=== PATIENT | female | born 1965 | race Caucasian/White ===

== ENCOUNTER → 2017-02-23 | Outpatient (CLI) | payer OTHER ==
[~2017-02-23] MED LIST: AMOX500T PO; FERR1TAB23 PO; FERROUS SULFATE PO; HYDR-5688 PO; MTR500 PO; OPTIRAY 320 IV PRN; PRENTAB26 PO; Tylenol PO; [UNRECOGNIZED DRUG - OTHER] PO
--- NOTE | 2017-02-23 09:51 | DIAGNOSTIC IMAGING REPORT ---
ABDOMEN AND PELVIS CT WITH IV AND ORAL CONTRAST CT DOSE: HISTORY: Colon carcinoma colon carcinoma TECHNIQUE: Multiaxial CT images of the abdomen and pelvis were performed following the use of intravenous and oral contrast. COMPARISON STUDY: 10/21/2016 FINDINGS: 3 mm peripheral nodule right lung base unchanged in the prior study. No new or interval basilar changes. Liver demonstrates a decrease in size of a nodule of the left hepatic lobe now currently measuring no more than 3 mm best seen transaxial 26 image. Lesion in the exophytic bases of the inferior right hepatic lobe is slightly diminished in size with a current maximum dimension of 3 cm diminished from the prior study of 4.5 cm. No new or interval hepatic lesions are identified. Partially peripherally calcified gallstone the region of the gallbladder neck versus partial porcelain gallbladder is unchanged. A 3 mm cystic nodule juncture of the pancreas body and tail is unchanged. There are no new or interval pancreatic findings. Spleen is uniform. Kidneys enhance uniformly. No evidence for hydronephrosis. A prior colostomy widely patent. Bowel pattern is nonobstructive. Bladder is midline. The appearance of pelvis is unremarkable. Bladder is midline. There is no significant abdominal pelvic or inguinal adenopathy. IMPRESSION: 1. Improved exam. 2. Metastatic deposits within the liver are moderately diminished in volume. 3. No evidence for new or interval process. 3. Stable postoperative changes. 4. Stable 3 mm nodular density right base 5. No CT evidence for bony metastatic change Electronically signed by: Thanh Hollis M.D. 02/23/2017 9:49 AM Dictated Date/Time: 02/23/2017 9:41 AM
--- NOTE | 2017-02-23 10:01 | DIAGNOSTIC IMAGING REPORT ---
CT OF THE CHEST WITH IV CONTRAST CLINICAL HISTORY: Metastatic colon cancer. COMPARISON STUDY: Chest CT October 21, 2016. TECHNIQUE: Following IV administration of 92 mL of Optiray-320, helical axial images of the chest were obtained. Images were viewed in the axial, sagittal and coronal planes. IV contrast was administered without complication. CT DOSE: 546.16 mGy.cm FINDINGS: Numerous subcentimeter pulmonary nodules are unchanged since exam of October 21, 2016. An index irregular left upper lobe nodule measures 8 mm and is shown on image 74 of 316. No new nodules are present. Central airways are patent. No pneumothorax or pleural effusion is present. A right-sided Reawbr-n-Lnya is in place. The size of the heart is normal. There is no pericardial effusion. There are no suspicious osseous lesions. The abdomen and pelvis will be reported separately. IMPRESSION: 1. No change in numerous pulmonary nodules since exam October 21, 2016. No new nodules identified. 2. No thoracic lymphadenopathy. Electronically signed by: David Cotton M.D. 02/23/2017 10:00 AM Dictated Date/Time: 02/23/2017 9:40 AM
== END | disposition home or self-care (01) ==
LOC: C.CTS 08:33
PROVIDERS: ATTEND Nurse Practitioner Family
DX: C18.9 Malignant neoplasm of colon, unspecified (principal); C78.00 Secondary malignant neoplasm of unspecified lung

== ENCOUNTER → 2017-06-29 | Outpatient (CLI) | payer OTHER ==
[~2017-06-29] MED LIST changes: -AMOX500T PO; -FERR1TAB23 PO; -HYDR-5688 PO; -PRENTAB26 PO
--- NOTE | 2017-06-29 11:51 | DIAGNOSTIC IMAGING REPORT ---
(CHEST) THORAX WITH HISTORY: 51 years-old Female history of metastatic colon cancer with multiple pulmonary nodules. Follow-up exam. COMPARISON: CT chest 02/23/2017 TECHNIQUE: Multiple axial CT images of the chest were obtained following the intravenous administration of 94 mL Optiray 320. A dose lowering technique was used consistent with the principals of EMILEE. FINDINGS: A nonspecific low attenuating 8 x 6 mm posterior left thyroid nodule is present. No pathologic adenopathy of the chest is identified. Heart is normal in size. Thoracic aorta appears normal. The opacified pulmonary arterial tree is also unremarkable. Right pectoral Uiuggf-t-Nzvn catheter is noted with distal tip is proximal to the superior cavoatrial junction. Mild pleural-parenchymal scarring of the lung apices is noted without pneumothorax or pleural effusion. Multiple scattered noncalcified pulmonary nodules are again seen to the lungs bilaterally. Index nodule of the lateral basal segment left lower lobe measures 6 x 6 mm on image 238, previously 5 x 5 mm. Index nodule is lobulated and spiculated margins within the apical posterior segment left upper lobe measures 10 x 6 mm on image 77, previously 8 x 6 mm. Pleural-based spiculated nodule on image 72 of the posterior segment right upper lobe measuring 7 mm previously measured 5 mm. Central airways are patent. There is diffuse fatty infiltration of the liver. Oral contrast is seen within the gastric lumen. No suspicious lytic or blastic bony lesions. Mass of the right hepatic lobe is seen, 2.2 x 1.4 cm. Better evaluated on CT abdomen and pelvis of same day. IMPRESSION: 1. Multiple multilobar distribution bilateral noncalcified nodules, many of which demonstrate spiculated and lobulated margins are mildly increased in size from comparison chest CT dated 02/23/2017 compatible with progression of metastatic disease. 2. Hepatic metastasis partially imaged, better evaluated on the abdomen and pelvis CT of same day. 3. No pathologic adenopathy or skeletal metastases identified. The above report was generated using voice recognition software. It may contain grammatical, syntax or spelling errors. Electronically signed by: Amador Hickman M.D. 06/29/2017 11:49 AM Dictated Date/Time: 06/29/2017 11:41 AM
--- NOTE | 2017-06-29 12:30 | DIAGNOSTIC IMAGING REPORT ---
CT OF THE ABDOMEN AND PELVIS WITH CONTRAST CLINICAL HISTORY: Metastatic colon cancer. COMPARISON STUDY: CT of the abdomen and pelvis February 23, 2017. TECHNIQUE: Following IV administration of 94 mL of Optiray-320, axial images of the abdomen and pelvis were obtained from the lung bases to the proximal femurs. Images were reviewed in the axial, sagittal, and coronal planes. IV contrast was administered without complication. A dose lowering technique was utilized adhering to the principles of ALARA. Oral contrast was administered. CT DOSE: 562.70 mGy.cm FINDINGS: The chest will be reported separately. A 4 mm left lower lobe subpleural nodule shown on image 59 of 481 has slightly increased in size since prior exam of February 23, 2017. A hypodense inferior right hepatic lobe lesion is similar to exam of February 23, 2017, measuring 4.1 x 2 cm. No new hepatic lesions are present. A gallstone is noted within the gallbladder. There are postsurgical findings consistent with a transverse colostomy. Fatty infiltration of the liver is noted. The spleen, adrenal glands, kidneys and pancreas are normal. No enlarged abdominal or pelvic lymph nodes are present. The appendix is normal. There is no free fluid. Prominent periuterine vessels are unchanged. No suspicious osseous lesions are identified. IMPRESSION: 1. Slight increase in size of a 4 mm left lower lobe pulmonary nodule since prior CT of February 23, 2017. The pulmonary nodules are better assessed on chest CT. Please see that report for further description. 2. No significant change in the right hepatic lobe lesion since prior exam. No evidence of progressive metastatic disease within the abdomen or pelvis. 3. No bowel obstruction. 4. Cholelithiasis. 5. Fatty infiltration of the liver. Electronically signed by: David Cotton M.D. 06/29/2017 12:29 PM Dictated Date/Time: 06/29/2017 11:39 AM
== END | disposition home or self-care (01) ==
LOC: C.CTS 10:41
PROVIDERS: ATTEND Nurse Practitioner Family
DX: C18.9 Malignant neoplasm of colon, unspecified (principal); R91.8 Other nonspecific abnormal finding of lung field; K80.20 Calculus of gallbladder without cholecystitis without obstruction; K76.0 Fatty (change of) liver, not elsewhere classified; C78.7 Secondary malignant neoplasm of liver and intrahepatic bile duct

== ENCOUNTER → 2017-09-12 | Outpatient (CLI) | payer OTHER ==
[~2017-09-12] MED LIST changes: +AMOX500T PO; +FERR1TAB23 PO; +HYDR-5688 PO; -OPTIRAY 320 IV PRN; +PRENTAB26 PO
== END | disposition home or self-care (01) ==
LOC: C.CPL 15:23
PROVIDERS: ATTEND Surgery
DX: C79.9 Secondary malignant neoplasm of unspecified site (principal)

== ENCOUNTER → 2017-09-15 | Day surgery (SDC) | payer OTHER ==
[2017-09-14 08:04] VITALS: Ht 162.6 cm; Wt 65.5 kg
[~2017-09-15] VITALS: Ht 162.6 cm; Wt 65.5 kg
[~2017-09-15] MED LIST changes: +ATROPINE SULFATE 0.1 MG/ML 5ML SYR IV PRN; +CEFAZOLIN 2000MG IV PUSH 10 ML IV SCH; +DEXAMETHASONE SOD INJ 4 MG/ML VIAL ONE; +EpHEDrine SULFATE INJ 50 MG/ML AMP IV PRN; +FENTANYL CITRATE INJ 50 MCG/1 ML 2 ML VIAL IV PRN; +FENTANYL CITRATE INJ 50 MCG/1 ML 2 ML VIAL ONE; -FERROUS SULFATE PO; +HYDROCODONE/ACETAMOPHEN 5/325MG TAB PO PRN; +HYDROmorphone INJ 1 MG/ML SYR IV PRN; +LACTATED RINGER'S 1000ML 1,000 ML IV SCH; +LIDOCAINE HCL 1% 20 ML VIAL ONE; +LIDOCAINE HCL 2% 2 ML VIAL (20MG/ML) ONE; +MIDAZOLAM HCL 1 MG/ML 2ML VIAL ONE; -MTR500 PO; +ONDANSETRON INJ 2 MG/ML 2 ML VIAL IV PRN; +ONDANSETRON INJ 2 MG/ML 2 ML VIAL ONE; +PROMETHAZINE HCL INJ 12.5 MG in SODIUM CHLORIDE 0.9% 50ML 50 ML IV PRN; +PROPOFOL IV EMULSION 10 MG/ML 20 ML VIAL IV ONE; +SODIUM CHLORIDE 0.9% 1000ML 1,000 ML IV SCH; -Tylenol PO; -[UNRECOGNIZED DRUG - OTHER] PO
--- NOTE | 2017-09-15 10:49 | History & Physical Bridge - SC ---
H&P Re-Evaluation Bridge Note: I have examined the patient, reviewed the History & Physical and in the interval since the performance of the History & Physical I have noted the following changes of clinical significance: No changes noted
--- NOTE | 2017-09-15 11:27 | [facility] Operative Report ---
Operative Report Operative Date Sep 15, 2017. Pre-Operative Diagnosis Infected A-port; metastatic colon cancer Post-Operative Diagnosis Same as pre-op Procedure(s) Performed Removal of A-port Surgeon Dr. Lowery Plumber Supervisor Surgeon(s) None Estimated Blood Loss 5ML Findings port- cultured Specimens Culture #1-port capsule Culture #2-A-port A.Explanted A-port (permanent) Anesthesia local/ sedation Complication(s) None Disposition Recovery Room / PACU I attest to the content of the Intraoperative Record and any orders documented therein. Any exceptions are noted below.
[2017-09-15 11:30] VITALS: TEMP 36.4
--- NOTE | 2017-09-15 11:30 | Discharge Instructions-SurgCtr ---
Discharge Instructions Date of Service Sep 15, 2017. Visit Reason for Visit: Infected A-Port Discharge Discharge Diagnosis / Problem: port in place- infected Discharge Goals Goal(s): Decrease discomfort, Improve function, Improve disease control Activity Recommendations Activity Limitations: as noted below Lifting Limitations: no more than 25 pounds Exercise/Sports Limitations: until after follow-up appointment May Resume Sexual Activity: when tolerated Shower/Bathe: tomorrow Driving or Machine Use: resume 1 day after discharge SPECIAL CARE INSTRUCTIONS: * Cover incisions and change daily for comfort/drainage. * May use ibuprofen for pain as tolerated. * Expect some swelling and bruising. Call your doctor if: * Temperature above 101 degrees * Pain not relieved by pain medicine ordered * There is increased drainage or redness from any incision * You have any unanswered questions or concerns [phone]. FOLLOW UP VISIT: If not already scheduled, please call the office for a follow-up visit. for 2 weeks- [facility] OFFICE PHONE NUMBER: Dr. Lowery Office Anesthesia . Post Anesthesia Instructions: If you have had General Anesthesia or IV Sedation: * Do not drive today. * Resume driving when surgeon permits. * Do not make important decisions or sign legal documents today. * Call surgeon for: 1. Temperature elevations greater than 101 degrees F. 2. Uncontrollable pain. 3. Excessive bleeding. 4. Persistent nausea and vomiting. 5. Medication intolerance (nausea, vomiting or rash). * For nausea and vomiting use only clear liquids such as: tea, soda, bouillon until nausea subsides, then gradually increase diet as tolerated. * If you have any concerns or questions, call your surgeon's office. If physician is unavailable and it is an emergency, call 911 or go to the nearest emergency room. . Diet Recommendations Home Diet: resume previous diet Procedures Procedures Performed: Removal of A-port Pending Studies Studies pending at discharge: no Medical Emergencies . Who to Call and When: Medical Emergencies: If at any time you feel your situation is an emergency, please call 911 immediately. . Non-Emergent Contact Non-Emergency issues call your: Primary Care Provider, Surgeon . . "Provider Documentation" section prepared by Paresh Lowery. .
--- NOTE | 2017-09-15 11:41 | OPERATIVE REPORT ---
DATE OF OPERATION: 09/15/2017 NAME OF OPERATION: Port removal with culture. STAFF SURGEON: Dr. Paresh Lowery. ANESTHESIA: 1% plain lidocaine with sedation. DESCRIPTION OF PROCEDURE: The patient was brought into the operating room and placed on the operating table in the supine position. Her right chest was prepped and draped in the usual fashion over a port site. Using 1% plain lidocaine, the skin and subcutaneous tissue were anesthetized, incision made through the previous scar, carrying dissection down identifying the catheter, dissecting the port, which was a double port from the capsule and then removing the catheter and port. Tunnel was oversewn using 2-0 chromic catgut suture. The port capsule was cultured. The port tip was cultured. Deep tissue was reapproximated using 2-0 chromic catgut suture and the skin reapproximated using 4-0 nylon suture. Dressing applied and the patient transferred to recovery room in stable condition. I attest to the content of the Intraoperative Record and any orders documented therein. Any exception s are noted below.
[2017-09-15 12:03] VITALS: BP 119/76; PULSE 64; O2SAT 100
--- NOTE | 2017-09-15 12:20 | Anesthesia Progress Nt - [facility] ---
Anesthesia Post Op Note Date & Time Sep 15, 2017 at 12:20 Vital Signs Pain Intensity: 0 Vital Signs Past 12 Hours Date Time Temp Pulse Resp B/P (MAP) Pulse Ox O2 Delivery O2 Flow Rate FiO2 09/15/17 12:03 64 16 119/76 (90) 100 Room Air 09/15/17 11:30 36.4 75 16 101/68 (79) 100 Room Air 09/15/17 09:03 36.6 72 16 118/80 (93) 95 Room Air Notes Mental Status: alert / awake / arousable, participated in evaluation Pt Amnestic to Procedure: Yes Nausea / Vomiting: adequately controlled Pain: adequately controlled Airway Patency, RR, SpO2: stable & adequate BP & HR: stable & adequate Hydration State: stable & adequate Anesthetic Complications: no major complications apparent
== END | disposition home or self-care (01) ==
LOC: X.SURG 08:44
PROVIDERS: ATTEND Surgery
DX: Z45.2 Encounter for adjustment and management of vascular access device (principal); C18.9 Malignant neoplasm of colon, unspecified; C79.9 Secondary malignant neoplasm of unspecified site; D64.9 Anemia, unspecified; Z87.891 Personal history of nicotine dependence

== ENCOUNTER → 2018-01-26 | Outpatient (CLI) | payer OTHER ==
[~2018-01-26] MED LIST changes: -ATROPINE SULFATE 0.1 MG/ML 5ML SYR IV PRN; -CEFAZOLIN 2000MG IV PUSH 10 ML IV SCH; -DEXAMETHASONE SOD INJ 4 MG/ML VIAL ONE; -EpHEDrine SULFATE INJ 50 MG/ML AMP IV PRN; -FENTANYL CITRATE INJ 50 MCG/1 ML 2 ML VIAL IV PRN; -FENTANYL CITRATE INJ 50 MCG/1 ML 2 ML VIAL ONE; -HYDROCODONE/ACETAMOPHEN 5/325MG TAB PO PRN; -HYDROmorphone INJ 1 MG/ML SYR IV PRN; -LACTATED RINGER'S 1000ML 1,000 ML IV SCH; -LIDOCAINE HCL 1% 20 ML VIAL ONE; -LIDOCAINE HCL 2% 2 ML VIAL (20MG/ML) ONE; -MIDAZOLAM HCL 1 MG/ML 2ML VIAL ONE; -ONDANSETRON INJ 2 MG/ML 2 ML VIAL IV PRN; -ONDANSETRON INJ 2 MG/ML 2 ML VIAL ONE; +OPTIRAY 320 IV PRN; -PROMETHAZINE HCL INJ 12.5 MG in SODIUM CHLORIDE 0.9% 50ML 50 ML IV PRN; -PROPOFOL IV EMULSION 10 MG/ML 20 ML VIAL IV ONE; -SODIUM CHLORIDE 0.9% 1000ML 1,000 ML IV SCH
--- NOTE | 2018-01-26 16:04 | DIAGNOSTIC IMAGING REPORT ---
CT ABD/PELVIS IV AND ORAL CONT CLINICAL HISTORY: COLON CA COMPARISON STUDY: 09/26/2017 TECHNIQUE: Following the IV administration of 94 mL of Optiray-320, CT scan of the abdomen and pelvis was performed from the lung bases to the proximal femurs. Images are reviewed in the axial, sagittal, and coronal planes. IV contrast was administered without complication. A dose lowering technique was utilized adhering to the principles of ALARA. CT DOSE: 535.55 mGy.cm FINDINGS: Lower chest: There are multiple bilateral lower lobe pulmonary nodules. The largest on the left measures 8 mm. The largest on the right measures 5 mm. Liver: There is hepatic steatosis. There are multiple right lobe masses. The largest measures 4.8 cm in diameter. There is adjacent capsular retraction. This mass is minimally smaller than on the preceding study. There are calcifications within the right posterior inferior hepatic mass. Gallbladder: Cholelithiasis Spleen: Normal in size and attenuation. Pancreas: Unremarkable. Adrenal glands: Unremarkable. Kidneys: There is symmetric renal cortical enhancement. The kidneys are normal in size without hydronephrosis. Bowel: There are no transition zones indicate bowel obstruction. There is a left lower quadrant double barrel colostomy. Peritoneum: There is no intraperitoneal free air or abdominal ascites. Vasculature: The abdominal aorta is normal in course and caliber. Adenopathy: None. Pelvic viscera: The bladder, and pelvic viscera are unremarkable. Skeletal structures: No destructive osseous lesions are seen. IMPRESSION: 1. Multiple lower lobe pulmonary nodules, indicative of metastatic disease 2. Slight interval decrease in the size of the hepatic masses, consistent with a treatment response 3. No evidence of pathologic adenopathy. Electronically signed by: Chavo Langford M.D. 01/26/2018 4:03 PM Dictated Date/Time: 01/26/2018 3:55 PM
--- NOTE | 2018-01-26 16:10 | DIAGNOSTIC IMAGING REPORT ---
CHEST CT WITH CONTRAST HISTORY: Follow-up study in a patient with history of colon cancer. History of metastatic disease. COLON CA TECHNIQUE: Multiaxial CT images of the chest were performed following the intravenous administration of contrast. A dose lowering technique was utilized adhering to the principles of ALARA. COMPARISON: CT chest 09/26/2017, CT abdomen and pelvis of same day. FINDINGS: 8 mm low attenuating lesion of the left thyroid lobe redemonstrated. The left thyroid lobe is asymmetrically larger than the right. There is no pathologic adenopathy of the chest identified. The heart is normal in size without pericardial effusion. The thoracic aorta is normal in both course and caliber without aneurysm or dissection. The imaged great vessels appear to be patent. The opacified pulmonary arterial tree is unremarkable and demonstrates no focal filling defects. There is no pneumothorax or pleural effusion identified. Multiple bilateral solid noncalcified pulmonary nodules are redemonstrated. Unchanged 12 mm nodule of the left upper lobe, image 66 series 4. Additional bilateral nodules appear stable in size and appearance no progressively enlarged or new pulmonary nodules identified. 9 mm nodules left lower lobe, image 224 series 4 appears unchanged. The central airways appear to be patent. The previously described ill-defined low attenuating hepatic metastasis redemonstrated measuring up to 3.9 cm. No acute abnormality of the imaged upper abdomen. Soft tissues are unremarkable. No suspicious lytic or blastic bony lesions identified. IMPRESSION: 1. Multilobar distribution of solid bilateral pulmonary nodules are again seen measuring up to 1.2 cm in size which appear unchanged from most recent comparison study 09/26/2017 suggesting stable pulmonary metastasis. 2. No mediastinal or hilar adenopathy. 3. Hepatic metastasis redemonstrated. Please see separately dictated CT abdomen and pelvis for further details. 4. No bony metastasis identified. Electronically signed by: Amador Hickman M.D. 01/26/2018 4:09 PM Dictated Date/Time: 01/26/2018 3:59 PM
== END | disposition home or self-care (01) ==
LOC: C.CTS 13:22
PROVIDERS: ATTEND Internal Medicine Hematology & Oncology
DX: C18.7 Malignant neoplasm of sigmoid colon (principal); R91.8 Other nonspecific abnormal finding of lung field; R16.0 Hepatomegaly, not elsewhere classified

== ENCOUNTER → 2018-07-12 | Outpatient (CLI) | payer OTHER ==
[~2018-07-12] MED LIST changes: -HYDR-5688 PO
--- NOTE | 2018-07-12 12:48 | DIAGNOSTIC IMAGING REPORT ---
CT SCAN OF THE CHEST, ABDOMEN, AND PELVIS WITH IV CONTRAST CLINICAL HISTORY: Colon cancer follow-up. COMPARISON STUDY: CT scan of the chest, abdomen, and pelvis dated 04/18/2018. Chest CT dated 08/14/2015. TECHNIQUE: Following the IV administration of 116 of Optiray 320, CT scan of the chest, abdomen, and pelvis was performed from the thoracic inlet to the proximal femora. Images are reviewed in the axial, sagittal, and coronal planes. IV contrast was administered without complication. A dose lowering technique was utilized adhering to the principles of ALARA. CT DOSE: 482.30 mGy.cm FINDINGS: CHEST: Thyroid: Imaged portions of the thyroid gland are normal in size and heterogeneous in attenuation. Thyroid nodules measure up to 9 mm. Thoracic aorta: The thoracic aorta is normal in caliber and demonstrates standard 3-vessel arch anatomy. No dissection is seen. Pulmonary vasculature: The pulmonary trunk is normal in caliber. There are no filling defects identified in the central pulmonary vessels to indicate pulmonary embolus. Note that this examination was not protocoled for evaluation of the pulmonary arteries. Heart: The heart is normal in size and configuration, and without pericardial effusion. Lungs and pleural spaces: Findings of diffuse/multifocal pulmonary metastatic disease have not appreciably changed from 04/18/2018. There are greater than 30 metastatic foci identified. The largest lesions in the left upper lobe seen on image #101 measuring 11 mm. There is no airspace consolidation or pleural effusion. The trachea and central airways are clear. Mediastinum: There is no mediastinal lymphadenopathy. Manuela: Clear. Axillae: There is no axillary lymphadenopathy. Bony thorax: The skeletal structures are osteopenic. No lytic or blastic lesions are clearly identified. ABDOMEN AND PELVIS: Liver: The contrast-enhanced liver is normal in size. The liver demonstrates diffusely diminished attenuation consistent with hepatic steatosis. Right lobe hepatic metastases have not significantly changed from 04/18/2018. This now measures approximately 5 x 4 cm in dimension. There is associated scalloping of the overlying hepatic capsule. No new hepatic lesion is seen. There is no intrahepatic or ductal dilatation. The hepatic veins and portal veins are patent. Gallbladder: Calcified gallstones are suspected. Spleen: Normal in size and attenuation. Pancreas: Unremarkable. Adrenal glands: Unremarkable. Kidneys: The contrast enhanced kidneys are normal in size and without hydronephrosis. The kidneys enhance symmetrically. Abdominal vasculature: The abdominal aorta is normal in course and caliber. Bowel: There are postoperative changes from a double barrel colostomy at the level of the distal transverse colon in the left mid abdomen. No bowel obstruction is identified. Prominent pericolonic lymph nodes/soft tissue thickening adjacent to the sigmoid colon on image were 299 measure up to 9 mm in short axis. The appendix is well-visualized and normal. Peritoneum: There is no intraperitoneal free air or abdominal ascites. Lymphadenopathy: None. Pelvic viscera: The bladder, uterus, and adnexa are normal as visualized. Skeletal structures: The skeletal structures are osteopenic. No lytic or blastic lesions are clearly seen. IMPRESSION: 1. There has been no significant change from the 04/18/2018 examinations. 2. Multifocal pulmonary metastatic disease and hepatic metastases have not appreciably changed from previous. 3. Soft tissue thickening/nodularity versus pericolonic lymph nodes adjacent to the sigmoid colon are unchanged. 4. There is no airspace consolidation or pleural effusion. 5. Hepatic steatosis. 6. Suspect cholelithiasis. 7. Additional findings as above. Electronically signed by: Yadiel Isbell M.D. 07/12/2018 12:47 PM Dictated Date/Time: 07/12/2018 12:29 PM
== END | disposition home or self-care (01) ==
LOC: C.CTS 11:35
PROVIDERS: ATTEND Nurse Practitioner Family
DX: C18.7 Malignant neoplasm of sigmoid colon (principal); C78.00 Secondary malignant neoplasm of unspecified lung; C78.7 Secondary malignant neoplasm of liver and intrahepatic bile duct; M79.9 Soft tissue disorder, unspecified; K76.0 Fatty (change of) liver, not elsewhere classified

== ENCOUNTER 2019-06-02 07:39 | Inpatient (IN) ==
[2019-06-02] MEDS ORDERED: ACETAMINOPHEN 325 MG TAB PO PRN (10:07)
[2019-06-02] MEDS ORDERED: ONDANSETRON INJ 2 MG/ML 2 ML VIAL IV PRN (10:07)
[2019-06-02] MEDS ORDERED: HEPARIN 100 UNIT/ML 5ML FLUSH FLUSH PRN (10:30)
[2019-06-02] MEDS: SODIUM CHLORIDE 0.9% 1000ML 1,000 ML IV SCH ×3 (10:37→22:38)
[2019-06-02] MEDS ORDERED: GLUCOSE 40% GEL 15 GM TUBE PO PRN (10:45)
[2019-06-02] MEDS ORDERED: DEXTROSE 50% 50 ML SYRINGE IV PRN (10:45)
[2019-06-02] MEDS ORDERED: GLUCOSE 10 TABS/TUBE PO PRN (10:45)
[2019-06-02] MEDS ORDERED: GLUCAGON FOR INJ 1 MG VIAL IM PRN (10:45)
[2019-06-02] MEDS ORDERED: CARBOHYDRATES FOR HYPOGLYCEMIA PO PRN (10:45)
[2019-06-02 11:02] LABS: Hematocrit (blood only) 26.4 % (37-47); Hemoglobin 7.7 g/dL (12.0-16.0); Mean Corpuscular Hgb Conc 29.2 g/dL (32-36); Mean Corpuscular Volume 87.1 fL (80-100); Mean Platelet Volume 10.5 fL (7.4-10.4); Nucleated RBC # (auto) 0.18 K/uL (0-0); Nucleated RBC % (auto) 0.8 %; Platelet Count 180 K/uL (130-400); RDW Coefficient of Variation 22.8 % (11.5-14.5); RDW Standard Deviation 71.9 fL (36.4-46.3); Red Blood Count 3.03 M/uL (4.2-5.4); White Blood Count 21.68 K/uL (4.8-10.8)
[2019-06-02 11:12] LABS: INR 1.4 (0.9-1.1); Prothrombin Time 14.1 Seconds (9.0-12.0)
[2019-06-02 11:18] LABS: Albumin Level 1.5 gm/dl (3.4-5.0); BUN Creatinine Ratio 15.9 (10-20); Calcium 9.1 mg/dl (8.5-10.1); Creatinine Clr Calc Pharmacy 29.7 ml/min; Est GFR (African American) 36.8; Est GFR (Non-African American) 31.8; Potassium 3.8 mmol/L (3.5-5.1)
[2019-06-02] MEDS ORDERED: PIPERACILL/TAZOBAC CONSULT ACTIVE PRN (11:30)
[2019-06-02 11:33] LABS: Albumin Globulin Ratio 0.4 (0.9-2); Bilirubin,Total 4.1 mg/dl (0.2-1); Globulin 4.2 gm/dl (2.5-4.0); Total Protein 5.7 gm/dl (6.4-8.2)
[2019-06-02] MEDS ORDERED: PIPERACILLIN/TAZOBACTAM 3.375 GM in DEXTROSE 5% 100 ML IV ONE (11:45)
--- NOTE | 2019-06-02 13:27 | History & Physical Report ---
Date of Service June 02, 2019 Assessment & Plan (1) Acute pancreatitis: pain for a week, getting worse WBC 21k, AST 536, glucose normal lipase was 6000 at [facility] and CT showed evidence of pancreatitis concerns for gall stone pancreatitis due to elevated LFT will get GB US today may need MRCP will consult [facility] for recommendations keep NPO, allow ice chips NSS at 200cc/hr pain control with Dilaudid IV repeat CBC and CMP and lipase in the morning Zosyn to cover for possible cholangitis/cholecystitis, not for pancreatitis (2) Elevated LFTs: bili is 4, ALK phos nearly 2000 and AST 536 certainly bone mets likely contributing to higher elevation in Alk phos may consider cholangitis/cholecystitis as possibility given RUQ pain and leukocytosis check GB US today start on Zosyn today (3) ASHLEY (acute kidney injury): possible ASHLEY given Cr of 1.8 at [facility] unsure of baseline and Cr here cannot be run will give aggressive fluids with NSS at 200cc/hr (4) Colon cancer metastasized to brain: was on Decadron, continue IV (5) Colon cancer metastasized to bone: new finding for pain, it is in spine pain control consult oncology, may need radiation if pain is not controlled (6) Colon cancer metastasized to lung: consult oncology (7) DM type 2 (diabetes mellitus, type 2): Novolog SS (8) UTI (urinary tract infection): possible UTI bacteria in UA, told by patient that often she only has bacteria and no WBC with UTI will be on Zosyn, follow up urine culture from [facility] History of Present Illness Chief Complaint: My belly hurts Primary Care Provider: Thanh Charles 53 yo female with history of diffusely metastatic colon cancer. Discovered in 2014 with weight loss, weakness and heme positive stools. Found to have nearly obstructing mass in sigmoid. Had a subtotal colectomy and end colostomy. Has been through several rounds of chemotherapy, initially showed good response but then mets to lungs, liver, [employer] COORDINATOR and now bone. Most recently started on 5FU regimen, last treatment was 3 weeks ago and planned for another treatment in two days. Follows with Dr. Olguin. She had been tolerating chemo rather well despite her poor prognosis and her performance status had remained a 1, living independently and taking care of herself. She presents today from [facility] with acute pancreatitis. She says that she has had abdominal pain for over a week, getting progressively worse. She has no appetite and has been experiencing nausea but no vomiting. Her ostomy has had decreased output but her intake has been very poor. Yesterday she had a Boost for breakfast, nothing else all day. No fever or chills. The abdominal pain radiates to her back. Never had pain like this before, reports that she never had pain with her liver mets. At [facility] she had a significant leukocytosis of 22k, lipase elevated at 6000. Bilirubine was 4 and alk phos was in the . AST was elevated as well. CT of the abdomen/pelvis showed acute pancreatitis. It also showed the pulmonary and liver mets. Some thickening of her colon wall seen suggesting local spread of disease. Of note, there was some blastic lesions in spine suggestive of spine mets which is a new finding. She was started on IV fluids, made NPO, given Demerol for pain and transferred to [facility]. Allergies Allergy/AdvReac Type Severity Reaction Status Date / Time peanut Allergy Intermediate Rash Verified 03/25/19 05:42 around the mouth aloe Allergy Mild RASH Verified 03/25/19 05:42 No Known Drug Allergies Allergy . Verified 03/25/19 05:42 cat dander AdvReac Mild SNEEZING, Verified 03/25/19 05:42 WATERY EYES Home Medications Home Medications Medication Instructions Recorded Confirmed Type 1 tab PO DAILY 01/24/19 03/25/19 History ferrous sulfate 325 mg PO DAILY 01/24/19 03/25/19 History dexamethasone 2 mg tablet 2 mg PO DAILY tab 04/05/19 04/05/19 History empagliflozin 10 mg tablet 10 mg PO DAILY 04/05/19 04/05/19 History Past Med/Surg History Social History Preferred Language: Stateless Communication Ability: Effective Visual Impairment: Limited Hearing Ability: Normal Beliefs That Will Affect Care: Mandaen Mandaen Beliefs: PENTECOSTAL marital status: Current Living Situation: Spouse current occupational status: disabled current occupation: Worked for [employer] Other Information That Helps Us Care for You: No Feels Safe at Home: Yes Safety Concerns: Feels Safe At This Time Smoking Status: Former smoker Tobacco Type: cigarettes Second Hand Exposure: No Hx Alcohol Use: No Hx Substance Use: No caffeine: Yes (Iced tea daily ) during the past year weight has: remained stable Review of Systems Review of Systems: All systems reviewed & are unremarkable except as noted in HPI & below Constitutional: + body aches, + fatigue, + weakness, + anorexia and + weight loss; no fever, no chills and no sweats Eyes: + problem reported (yellow color) Respiratory: no cough, no dyspnea and no wheezing Cardiovascular: no chest pain, no palpitations, no syncope and no edema Gastrointestinal: + abdominal pain and + nausea; no vomiting, no constipation, no diarrhea/loose stools and no blood in stools Genitourinary: no dysuria Musculoskeletal: + back pain, + joint pain and + body aches Integumentary: no rash Neurologic: + generalized weakness; no falls, no tremor(s), no syncope, no headache(s) and no confusion Psychiatric: no behavioral changes Physical Exam Constitutional: well developed, + ill appearing and + thin; not in distress Eyes: + scleral abnormality (icterus), PERRL and EOM intact bilaterally ENMT: external ear and nose normal, oropharynx normal (dry mucous membranes) Neck: trachea midline, no thyromegaly Respiratory: normal respiratory effort, lungs clear to auscultation Cardiovascular: Rate/Rhythm: regular rhythm and + tachycardic Heart Sounds: normal S1 and normal S2; no murmur Vessels: no JVD Extremities: + abnormal capillary refill and no edema Gastrointestinal (Abdomen): Inspection/Auscultation: + abdomen distended and + hypoactive bowel sounds; + abdomen abnormal to inspection (colostomy in place) Percussion/Palpation: + abdomen tender and abdomen soft; no guarding, abdomen not rigid and no hernia Musculoskeletal: Head/Neck/Chest: normocephalic and head atraumatic Spine: + limited thoraco-lumbar ROM (due to pain) Skin: no rashes, warm and dry Neurologic: patellar DTR's 2+ bilat, sensation intact and PERRL, EOMI, accommodation nl, no face palsy, no dysarthria Psychiatric: A+Ox3, euthymic affect Lymphatic: no cervical or axillary lymphadenopathy Results & Data Laboratory Results Laboratory Results - last 24 hr 06/02/19 06/02/19 06/02/19 10:19 10:44 10:44 WBC 21.68 H RBC 3.03 L Hgb 7.7 L Hct 26.4 L MCV 87.1 MCH 25.4 MCHC 29.2 L RDW Std Deviation 71.9 H RDW Coeff of Sully 22.8 H Plt Count 180 MPV 10.5 H Absolute Nucleated RBC 0.18 H Nucleated RBC % (auto) 0.8 PT INR Sodium 135 L Potassium 3.8 Chloride 99 Carbon Dioxide 25 Anion Gap 11.0 BUN 28 H Creatinine 1.77 H Est Cr Clr Drug Dosing 29.7 Est GFR ( Amer) 36.8 Est GFR (Non-Af Amer) 31.8 BUN/Creatinine Ratio 15.9 Glucose 77 POC Glucose Calcium 9.1 Total Bilirubin 4.1 H AST 536 H ALT 77 Alkaline Phosphatase 1978 H Total Protein 5.7 L Albumin 1.5 L Globulin 4.2 H Albumin/Globulin Ratio 0.4 L Lipase 4739 H Cancelled 06/02/19 06/02/19 06/02/19 10:44 10:44 12:58 WBC RBC Hgb Hct MCV MCH MCHC RDW Std Deviation RDW Coeff of Sully Plt Count MPV Absolute Nucleated RBC Nucleated RBC % (auto) PT 14.1 H INR 1.4 H Sodium Potassium Chloride Carbon Dioxide Anion Gap BUN Creatinine Cancelled Est Cr Clr Drug Dosing Cancelled Est GFR ( Amer) Cancelled Est GFR (Non-Af Amer) Cancelled BUN/Creatinine Ratio Glucose POC Glucose 87 Calcium Total Bilirubin AST ALT Alkaline Phosphatase Total Protein Albumin Globulin Albumin/Globulin Ratio Lipase Medications Administered Current Inpatient Medications Acetaminophen (Tylenol) 650 mg PO Q4H PRN PRN Reason: pain/fever Stop: 07/02/19 10:06 Dextrose (Dextrose 50%) 25 - 50 ml IV UD PRN; Protocol PRN Reason: Hypoglycemia Protocol Stop: 07/02/19 10:44 Enoxaparin Sodium (Lovenox) 30 mg SQ Q24H MANI Stop: 07/02/19 13:59 Glucagon (Glucagen) 1 mg IM UD PRN; Protocol PRN Reason: Hypoglycemia Protocol Stop: 07/02/19 10:44 Glucose (Glucose 40%) 15 - 30 gm PO UD PRN; Protocol PRN Reason: Hypoglycemia Protocol Stop: 07/02/19 10:44 Glucose (Dex4 Glucose) 4 - 8 tabs PO UD PRN; Protocol PRN Reason: Hypoglycemia Protocol Stop: 07/02/19 10:44 Heparin Sodium (Porcine) (Heparin Sod 100 Unit/Ml Flush) 5 ml FLUSH PRN PRN PRN Reason: Flush Stop: 07/02/19 10:29 Last Admin: 06/02/19 10:33 Dose: 5 ml Documented by: Hydromorphone HCl (Dilaudid) 1 mg IV Q3H PRN PRN Reason: Pain Stop: 06/16/19 10:26 Sodium Chloride (Nss 1000ml) 1,000 mls @ 200 mls/hr IV .Q5H MANI Stop: 07/02/19 10:29 Last Infusion: 06/02/19 13:12 Dose: 0 mls/hr Documented by: Piperacillin Sod/Tazobactam (Sod 3.375 gm/ Dextrose) 115 mls @ 28.75 mls/hr IV Q8H MANI Stop: 06/12/19 17:59 Insulin Aspart (Novolog Flexpen) 0 units SC ACHS MANI Stop: 07/02/19 11:29 Last Admin: 06/02/19 13:38 Dose: Not Given Documented by: Miscellaneous (Carbohydrates For Hypoglycemia) 15 - 30 gm PO UD PRN PRN Reason: Hypoglycemia Treatment Stop: 07/02/19 10:44 Miscellaneous Information (Consult) 1 ea N/A UD PRN PRN Reason: Consult Stop: 07/02/19 11:29 Ondansetron HCl (Zofran) 4 mg IV Q6H PRN PRN Reason: Nausea Stop: 07/02/19 10:06 Code Status & VTE Plan Code Status full code VTE Prophylaxis Plan VTE Prophylaxis will be ordered: Yes PG Care Time/CCT Total # of Minutes Spent Total Time Spent with Patient: Total time spent is greater than 50% in coordination of care (as documented) at patient's floor/unit and/or counseling patient:
[2019-06-02] MEDS: INSULIN ASPART 100 UNITS/ML 3 ML PEN SC SCH ×2 (13:38→18:35)
[2019-06-02] MEDS: ENOXAPARIN INJ 30 MG/0.3 ML SYR SQ SCH (14:25)
[2019-06-02] MEDS: HYDROmorphone INJ 1 MG/ML SYRINGE IV PRN (14:28)
[2019-06-02] MEDS ORDERED: CALCIUM CARBONATE 500 MG CHEWABLE TAB PO PRN (14:46)
[2019-06-02] MEDS: FAMOTIDINE 20 MG in SYRINGE 3 ML IV SCH (15:27)
--- NOTE | 2019-06-02 17:01 | Magnetic Resonance Report ---
MRCP CLINICAL HISTORY: Gallstone pancreatitis. Metastatic disease. COMPARISON STUDY: Abdominal CT dated 04/22/2019. TECHNIQUE: Abdominal MRCP is performed utilizing various T2-weighted sequences in the axial and coron al planes. IV contrast was not administered for this examination. 3-D reformats are created and asses sed. The examination is degraded by motion artifact. FINDINGS: The gallbladder is contracted and large gallstones are identified. There is no significant inflammato ry change identified in the gallbladder fossa. The common bile duct is normal in caliber, measuring u p to 2 mm diameter. There are no filling defects identified to indicate choledocholithiasis. There is distortion/mass effect on the common hepatic duct at the hepatic hilum, possibly related to hepatic metastatic disease or an adjacent gallstone within the gallbladder neck. There is no significant intr ahepatic biliary ductal dilatation. The pancreatic duct is normal in caliber. The liver is markedly enlarged and infiltrated by diffuse/multifocal hepatic metastatic disease. This appears progressive from the 04/22/2019 examination. There is trace abdominal ascites. The unenhanced spleen, kidneys, and pancreas are grossly unremarkable. There is nodularity of the left adrenal gland . There is evidence of multifocal osseous metastatic disease. Pulmonary metastatic disease is identif ied at the lung bases. There are trace pleural effusions. No bowel obstruction is seen. An ostomy is noted in the left midabdomen. IMPRESSION: 1. The gallbladder is contracted around large gallstones and not well evaluated. There is no convinci ng evidence of acute cholecystitis. 2. There is no intra or extrahepatic biliary ductal dilatation, and no evidence of choledocholithiasi s. 3. There is mass effect upon the common hepatic duct at the hepatic hilum. This may be related to adj acent hepatic metastatic disease or a gallstone within the adjacent gallbladder neck. 4. The liver is markedly enlarged and infiltrated by diffuse metastatic disease. This appears progres sive from 04/22/2019. 5. There is multifocal osseous metastatic disease as well as metastatic disease seen at the lung base s. 6. There are trace pleural effusions. 7. Trace abdominal ascites. Electronically signed by: Yadiel Isbell M.D. 06/02/2019 4:59 PM
[2019-06-02] MEDS: PIPERACILLIN/TAZOBACTAM 3.375 GM in DEXTROSE 5% 100 ML IV SCH (17:39)
[2019-06-02] MEDS: dexAMETHasone 2 MG in SYRINGE 0 ML IV SCH (20:40)
[2019-06-03] MEDS: INSULIN ASPART 100 UNITS/ML 3 ML PEN SC SCH ×5 (00:27→17:52)
[2019-06-03] MEDS: PIPERACILLIN/TAZOBACTAM 3.375 GM in DEXTROSE 5% 100 ML IV SCH ×3 (01:38→17:46)
[2019-06-03] MEDS: SODIUM CHLORIDE 0.9% 1000ML 1,000 ML IV SCH ×4 (01:38→17:46)
[2019-06-03 06:39] LABS: INR 1.5 (0.9-1.1); Prothrombin Time 14.6 Seconds (9.0-12.0)
[2019-06-03 06:51] LABS: Hematocrit (blood only) 25.6 % (37-47); Hemoglobin 7.2 g/dL (12.0-16.0); Mean Corpuscular Hgb Conc 28.1 g/dL (32-36); Mean Corpuscular Volume 90.1 fL (80-100); Mean Platelet Volume 10.3 fL (7.4-10.4); Nucleated RBC # (auto) 0.15 K/uL (0-0); Nucleated RBC % (auto) 0.5 %; Platelet Count 161 K/uL (130-400); RDW Coefficient of Variation 22.7 % (11.5-14.5); RDW Standard Deviation 74.7 fL (36.4-46.3); Red Blood Count 2.84 M/uL (4.2-5.4); White Blood Count 29.43 K/uL (4.8-10.8)
[2019-06-03 06:55] LABS: Anisocytosis Present; Dohle Bodies 1+; Lymphocytes % (manual) 3.4 %; Metamyelocytes # (manual) 0.26 K/uL (0-0); Metamyelocytes % (manual) 0.9 %; Monocytes # (manual) 1.27 K/uL (0.11-0.59); Monocytes % (manual) 4.3 %; Myelocytes % (manual) 3.4 %; Polychromasia 1+; Spherocytes 1+; Toxic Granulation 1+
[2019-06-03 07:03] LABS: Albumin Level 1.3 gm/dl (3.4-5.0); BUN Creatinine Ratio 15.4 (10-20); Calcium 8.5 mg/dl (8.5-10.1); Creatinine Clr Calc Pharmacy 25.3 ml/min; Est GFR (African American) 30.3; Est GFR (Non-African American) 26.1; Potassium 4.3 mmol/L (3.5-5.1)
[2019-06-03 07:10] LABS: Albumin Globulin Ratio 0.3 (0.9-2); Bilirubin,Total 4.5 mg/dl (0.2-1); Globulin 4.4 gm/dl (2.5-4.0); Total Protein 5.7 gm/dl (6.4-8.2)
[2019-06-03 07:32] LABS: Ferritin 22744.4 ng/ml (8-388)
[2019-06-03] MEDS: HYDROmorphone INJ 1 MG/ML SYRINGE IV PRN (08:48)
[2019-06-03] MEDS: dexAMETHasone 2 MG in SYRINGE 0 ML IV SCH ×2 (08:49→21:11)
[2019-06-03] MEDS: FAMOTIDINE 20 MG in SYRINGE 3 ML IV SCH (08:49)
[2019-06-03 09:19] LABS: Folate (Folic Acid) 19.11 ng/ml (>5.38); Vitamin B12 > 2000 pg/ml (211-911)
--- NOTE | 2019-06-03 10:46 | Gastrointestinal Consultation ---
Date of Consultation June 03, 2019 Assessment & Plan (1) Colon cancer metastasized to lun53 year old female with metastatic colon CA admitted w/ leukocytosis, elevated LFTS, MRCP w/ gallstones, mass effect upon the common hepatic duct at the hepatic hilum, diffuse metastatic disease progressive from 04/22/2019. - NPO - ERCP today - Continue conservative therapy for now - IV fluid hydration - Anti-emetics PRN - Analgesia PRN - Continue Zosyn for GI coverage - I did have a lengthy discussion with family at bedside - They will remain in the hospital for consent - They are considering a palliative care/hospice consultation Thank you for allowing us to participate in the care of this patient. Please call with any acute changes, questions or concerns. Please see addendum below with additional recommendation from my supervising physician. Present on Admission?: Yes (2) Elevated LFTs: Present on Admission?: Yes Supervising Physician Co-Signing Physician Notes I have personally seen and examined the patient with AILYN Polanco. Her note reflects my exam and findings. I agree with her impression and plan. Concerns for infectious etiology for acute decompensation given high WBC and liver/biliary finding. Plan for ERCP today to see if biliary source and possible drainage. Discussed with family at bedside. Family, children and siblings, in process of getting colon cancer screening. Paul Gray M.D. History of Present Illness Reason for Consultation: ?pancreatitis Requesting Physician: Elizabeth Attending Physician: Jenny Johnson MD History of Present Illness 53 year old female w/ metastatic colon cancer to lungs, liver, BRONC BUSTER and now bone who presented to OSH w/ confusion, abdominal pain, nausea, vomiting - transferred for [facility] for GI evaluation. Pt was seen and evaluated, chart reviewed. Family at bedside who aid in history. Endorses scleral icterus, jaundice over the past 3/4 weeks. Associated w/ decreased appetite, worsening abd pain. She notes nausea/vomiting prior to arrival. No report of black/bloody stools. No fever, chills, CP, SOB. S/P subtotal colectomy and end colostomy for colonic mass S/P several rounds of chemotherapy On 5FU regimen, last treatment was 3 weeks ago, due for therapy tomorrow. Follows with Dr. Olguin. MRCP: The gallbladder is contracted around large gallstones and not well evaluated. There is no convincing evidence of acute cholecystitis.There is no intra or extrahepatic biliary ductal dilatation, and no evidence of choledocholithiasis.There is mass effect upon the common hepatic duct at the hepatic hilum. This may be related to adjacent hepatic metastatic disease or a gallstone within the adjacent gallbladder neck.The liver is markedly enlarged and infiltrated by diffuse metastatic disease. This appears progressive from 04/22/2019.There is multifocal osseous metastatic disease as well as metastatic disease seen at the lung bases. There are trace pleural effusions.Trace abdominal ascites. Allergies Allergy/AdvReac Type Severity Reaction Status Date / Time peanut Allergy Intermediate Rash Verified 03/25/19 05:42 around the mouth aloe Allergy Mild RASH Verified 03/25/19 05:42 No Known Drug Allergies Allergy . Verified 03/25/19 05:42 cat dander AdvReac Mild SNEEZING, Verified 03/25/19 05:42 WATERY EYES Home Medications Home Medications Medication Instructions Recorded Confirmed Type 1 tab PO DAILY 01/24/19 03/25/19 History ferrous sulfate 325 mg PO DAILY 01/24/19 03/25/19 History dexamethasone 2 mg tablet 2 mg PO DAILY tab 04/05/19 04/05/19 History empagliflozin 10 mg tablet 10 mg PO DAILY 04/05/19 04/05/19 History Patient History Social History Preferred Language: Danish Communication Ability: Effective Visual Impairment: Limited Hearing Ability: Normal Beliefs That Will Affect Care: Uatsdin Uatsdin Beliefs: MORMON marital status: Current Living Situation: Spouse current occupational status: disabled current occupation: Worked for school district Other Information That Helps Us Care for You: No Feels Safe at Home: Yes Safety Concerns: Feels Safe At This Time Smoking Status: Former smoker Tobacco Type: cigarettes Second Hand Exposure: No Hx Alcohol Use: No Hx Substance Use: No caffeine: Yes (Iced tea daily ) during the past year weight has: remained stable Review of Systems Constitutional: no fever, no chills and no fatigue Respiratory: no cough, no dyspnea and no pain on inspiration Cardiovascular: no chest pain, no radiating jaw, neck or arm pain, no dyspnea on exertion and no palpitations Gastrointestinal: + abdominal pain and + nausea; no vomiting, no coffee ground emesis, no blood in stools and no melena Physical Exam Constitutional: + ill appearing and + thin; no acute distress Respiratory: normal respiratory effort; no respiratory distress Cardiovascular: Rate/Rhythm: regular rate and regular rhythm Gastrointestinal (Abdomen): Percussion/Palpation: + abdomen tender; no guarding and abdomen not rigid Skin: no rashes, warm and dry Results & Data Vital Signs (Past 12 Hours) Vital Signs Temp Pulse Resp BP Pulse Ox 06/03/19 07:30 36.5 C 98 H 19 128/80 98 06/03/19 04:20 36.5 C 100 H 19 131/86 97 06/03/19 00:00 36.7 C 115 H 17 124/78 96 Laboratory Results 06/03/19 06/03/19 06/03/19 Range/Units 06:02 06:02 06:02 WBC 29.43 H (4.8-10.8) K/uL RBC 2.84 L (4.2-5.4) M/uL Hgb 7.2 L (12.0-16.0) g/dL Hct 25.6 L (37-47) % MCV 90.1 (80-100) fL MCH 25.4 (25-34) pg MCHC 28.1 L (32-36) g/dL RDW Std Deviation 74.7 H (36.4-46.3) fL RDW Coeff of Sully 22.7 H (11.5-14.5) % Plt Count 161 (130-400) K/uL MPV 10.3 (7.4-10.4) fL Absolute Nucleated RBC 0.15 H (0-0) K/uL Nucleated RBC % (auto) 0.5 % Neutrophils % (Manual) 88.0 % Lymphocytes % (Manual) 3.4 % Monocytes % (Manual) 4.3 % Metamyelocytes % (Man) 0.9 % Myelocytes % (Man) 3.4 % Neutrophils # (Manual) 25.90 H (1.4-6.5) K/uL Total Absolute Neuts 25.90 H (1.4-6.5) K/uL Lymphocytes # (Manual) 1.00 L (1.2-3.4) K/uL Total Abs Lymphocytes 1.00 L (1.2-3.4) K/uL Monocytes # (Manual) 1.27 H (0.11-0.59) K/uL Metamyelocytes # (Man) 0.26 H (0-0) K/uL Myelocytes # (Manual) 1.00 H (0-0) K/uL Toxic Granulation 1+ Dohle Bodies 1+ Polychromasia 1+ Anisocytosis Present Spherocytes 1+ PT 14.6 H (9.0-12.0) Seconds INR 1.5 H (0.9-1.1) Sodium (136-145) mmol/L Potassium (3.5-5.1) mmol/L Chloride (98-107) mmol/L Carbon Dioxide (21-32) mmol/L Anion Gap (3-11) BUN (7-18) mg/dl Creatinine (0.6-1.2) mg/dl Est Cr Clr Drug Dosing ml/min Est GFR ( Amer) Est GFR (Non-Af Amer) BUN/Creatinine Ratio (10-20) Glucose (70-99) mg/dl POC Glucose (70-99) Calcium (8.5-10.1) mg/dl Iron (35-150) mcg/dl TIBC (250-450) mcg/dl Ferritin (8-388) ng/ml Total Bilirubin (0.2-1) mg/dl AST (15-37) U/L ALT (12-78) U/L Alkaline Phosphatase (45-117) U/L Total Protein (6.4-8.2) gm/dl Albumin (3.4-5.0) gm/dl Globulin (2.5-4.0) gm/dl Albumin/Globulin Ratio (0.9-2) Lipase (73-393) U/L Vitamin B12 > 2000 H (211-911) pg/ml Folate 19.11 (>5.38) ng/ml 06/03/19 06/03/19 06/02/19 Range/Units 06:02 05:54 23:50 WBC (4.8-10.8) K/uL RBC (4.2-5.4) M/uL Hgb (12.0-16.0) g/dL Hct (37-47) % MCV (80-100) fL MCH (25-34) pg MCHC (32-36) g/dL RDW Std Deviation (36.4-46.3) fL RDW Coeff of Sully (11.5-14.5) % Plt Count (130-400) K/uL MPV (7.4-10.4) fL Absolute Nucleated RBC (0-0) K/uL Nucleated RBC % (auto) % Neutrophils % (Manual) % Lymphocytes % (Manual) % Monocytes % (Manual) % Metamyelocytes % (Man) % Myelocytes % (Man) % Neutrophils # (Manual) (1.4-6.5) K/uL Total Absolute Neuts (1.4-6.5) K/uL Lymphocytes # (Manual) (1.2-3.4) K/uL Total Abs Lymphocytes (1.2-3.4) K/uL Monocytes # (Manual) (0.11-0.59) K/uL Metamyelocytes # (Man) (0-0) K/uL Myelocytes # (Manual) (0-0) K/uL Toxic Granulation Dohle Bodies Polychromasia Anisocytosis Spherocytes PT (9.0-12.0) Seconds INR (0.9-1.1) Sodium 135 L (136-145) mmol/L Potassium 4.3 (3.5-5.1) mmol/L Chloride 103 (98-107) mmol/L Carbon Dioxide 18 L (21-32) mmol/L Anion Gap 14.0 H (3-11) BUN 32 H (7-18) mg/dl Creatinine 2.08 H D (0.6-1.2) mg/dl Est Cr Clr Drug Dosing 25.3 ml/min Est GFR ( Amer) 30.3 Est GFR (Non-Af Amer) 26.1 BUN/Creatinine Ratio 15.4 (10-20) Glucose 96 (70-99) mg/dl POC Glucose 104 H 86 (70-99) Calcium 8.5 (8.5-10.1) mg/dl Iron 57 (35-150) mcg/dl TIBC 136 L (250-450) mcg/dl Ferritin 15163.4 H (8-388) ng/ml Total Bilirubin 4.5 H (0.2-1) mg/dl AST 991 H (15-37) U/L ALT 106 H (12-78) U/L Alkaline Phosphatase 2114 H (45-117) U/L Total Protein 5.7 L (6.4-8.2) gm/dl Albumin 1.3 L (3.4-5.0) gm/dl Globulin 4.4 H (2.5-4.0) gm/dl Albumin/Globulin Ratio 0.3 L (0.9-2) Lipase 3380 H (73-393) U/L Vitamin B12 (211-911) pg/ml Folate (>5.38) ng/ml 06/02/19 06/02/19 06/02/19 Range/Units 18:22 12:58 10:44 WBC (4.8-10.8) K/uL RBC (4.2-5.4) M/uL Hgb (12.0-16.0) g/dL Hct (37-47) % MCV (80-100) fL MCH (25-34) pg MCHC (32-36) g/dL RDW Std Deviation (36.4-46.3) fL RDW Coeff of Sully (11.5-14.5) % Plt Count (130-400) K/uL MPV (7.4-10.4) fL Absolute Nucleated RBC (0-0) K/uL Nucleated RBC % (auto) % Neutrophils % (Manual) % Lymphocytes % (Manual) % Monocytes % (Manual) % Metamyelocytes % (Man) % Myelocytes % (Man) % Neutrophils # (Manual) (1.4-6.5) K/uL Total Absolute Neuts (1.4-6.5) K/uL Lymphocytes # (Manual) (1.2-3.4) K/uL Total Abs Lymphocytes (1.2-3.4) K/uL Monocytes # (Manual) (0.11-0.59) K/uL Metamyelocytes # (Man) (0-0) K/uL Myelocytes # (Manual) (0-0) K/uL Toxic Granulation Dohle Bodies Polychromasia Anisocytosis Spherocytes PT (9.0-12.0) Seconds INR (0.9-1.1) Sodium (136-145) mmol/L Potassium (3.5-5.1) mmol/L Chloride (98-107) mmol/L Carbon Dioxide (21-32) mmol/L Anion Gap (3-11) BUN (7-18) mg/dl Creatinine Cancelled (0.6-1.2) mg/dl Est Cr Clr Drug Dosing Cancelled ml/min Est GFR ( Amer) Cancelled Est GFR (Non-Af Amer) Cancelled BUN/Creatinine Ratio (10-20) Glucose (70-99) mg/dl POC Glucose 85 87 (70-99) Calcium (8.5-10.1) mg/dl Iron (35-150) mcg/dl TIBC (250-450) mcg/dl Ferritin (8-388) ng/ml Total Bilirubin (0.2-1) mg/dl AST (15-37) U/L ALT (12-78) U/L Alkaline Phosphatase (45-117) U/L Total Protein (6.4-8.2) gm/dl Albumin (3.4-5.0) gm/dl Globulin (2.5-4.0) gm/dl Albumin/Globulin Ratio (0.9-2) Lipase (73-393) U/L Vitamin B12 (211-911) pg/ml Folate (>5.38) ng/ml 06/02/19 06/02/19 06/02/19 Range/Units 10:44 10:44 10:44 WBC 21.68 H (4.8-10.8) K/uL RBC 3.03 L (4.2-5.4) M/uL Hgb 7.7 L (12.0-16.0) g/dL Hct 26.4 L (37-47) % MCV 87.1 (80-100) fL MCH 25.4 (25-34) pg MCHC 29.2 L (32-36) g/dL RDW Std Deviation 71.9 H (36.4-46.3) fL RDW Coeff of Sully 22.8 H (11.5-14.5) % Plt Count 180 (130-400) K/uL MPV 10.5 H (7.4-10.4) fL Absolute Nucleated RBC 0.18 H (0-0) K/uL Nucleated RBC % (auto) 0.8 % Neutrophils % (Manual) % Lymphocytes % (Manual) % Monocytes % (Manual) % Metamyelocytes % (Man) % Myelocytes % (Man) % Neutrophils # (Manual) (1.4-6.5) K/uL Total Absolute Neuts (1.4-6.5) K/uL Lymphocytes # (Manual) (1.2-3.4) K/uL Total Abs Lymphocytes (1.2-3.4) K/uL Monocytes # (Manual) (0.11-0.59) K/uL Metamyelocytes # (Man) (0-0) K/uL Myelocytes # (Manual) (0-0) K/uL Toxic Granulation Dohle Bodies Polychromasia Anisocytosis Spherocytes PT 14.1 H (9.0-12.0) Seconds INR 1.4 H (0.9-1.1) Sodium (136-145) mmol/L Potassium (3.5-5.1) mmol/L Chloride (98-107) mmol/L Carbon Dioxide (21-32) mmol/L Anion Gap (3-11) BUN (7-18) mg/dl Creatinine (0.6-1.2) mg/dl Est Cr Clr Drug Dosing ml/min Est GFR ( Amer) Est GFR (Non-Af Amer) BUN/Creatinine Ratio (10-20) Glucose (70-99) mg/dl POC Glucose (70-99) Calcium (8.5-10.1) mg/dl Iron (35-150) mcg/dl TIBC (250-450) mcg/dl Ferritin (8-388) ng/ml Total Bilirubin (0.2-1) mg/dl AST (15-37) U/L ALT (12-78) U/L Alkaline Phosphatase (45-117) U/L Total Protein (6.4-8.2) gm/dl Albumin (3.4-5.0) gm/dl Globulin (2.5-4.0) gm/dl Albumin/Globulin Ratio (0.9-2) Lipase Cancelled (73-393) U/L Vitamin B12 (211-911) pg/ml Folate (>5.38) ng/ml 06/02/19 Range/Units 10:19 WBC (4.8-10.8) K/uL RBC (4.2-5.4) M/uL Hgb (12.0-16.0) g/dL Hct (37-47) % MCV (80-100) fL MCH (25-34) pg MCHC (32-36) g/dL RDW Std Deviation (36.4-46.3) fL RDW Coeff of Sully (11.5-14.5) % Plt Count (130-400) K/uL MPV (7.4-10.4) fL Absolute Nucleated RBC (0-0) K/uL Nucleated RBC % (auto) % Neutrophils % (Manual) % Lymphocytes % (Manual) % Monocytes % (Manual) % Metamyelocytes % (Man) % Myelocytes % (Man) % Neutrophils # (Manual) (1.4-6.5) K/uL Total Absolute Neuts (1.4-6.5) K/uL Lymphocytes # (Manual) (1.2-3.4) K/uL Total Abs Lymphocytes (1.2-3.4) K/uL Monocytes # (Manual) (0.11-0.59) K/uL Metamyelocytes # (Man) (0-0) K/uL Myelocytes # (Manual) (0-0) K/uL Toxic Granulation Dohle Bodies Polychromasia Anisocytosis Spherocytes PT (9.0-12.0) Seconds INR (0.9-1.1) Sodium 135 L (136-145) mmol/L Potassium 3.8 (3.5-5.1) mmol/L Chloride 99 (98-107) mmol/L Carbon Dioxide 25 (21-32) mmol/L Anion Gap 11.0 (3-11) BUN 28 H (7-18) mg/dl Creatinine 1.77 H (0.6-1.2) mg/dl Est Cr Clr Drug Dosing 29.7 ml/min Est GFR ( Amer) 36.8 Est GFR (Non-Af Amer) 31.8 BUN/Creatinine Ratio 15.9 (10-20) Glucose 77 (70-99) mg/dl POC Glucose (70-99) Calcium 9.1 (8.5-10.1) mg/dl Iron (35-150) mcg/dl TIBC (250-450) mcg/dl Ferritin (8-388) ng/ml Total Bilirubin 4.1 H (0.2-1) mg/dl AST 536 H (15-37) U/L ALT 77 (12-78) U/L Alkaline Phosphatase 1978 H (45-117) U/L Total Protein 5.7 L (6.4-8.2) gm/dl Albumin 1.5 L (3.4-5.0) gm/dl Globulin 4.2 H (2.5-4.0) gm/dl Albumin/Globulin Ratio 0.4 L (0.9-2) Lipase 4739 H (73-393) U/L Vitamin B12 (211-911) pg/ml Folate (>5.38) ng/ml
--- NOTE | 2019-06-03 11:24 | Surgery Consultation ---
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 Patient found to have acute pancreatitis with elevated wbc at 22K, t. bili of 4.0, and elevated lipase and LFTS. Patient transferred to [facility] for further care. MRCP showing gallstones and contracted gallbladder however no evidence of acute cholecystitis. Mass effect on common hepatic duct which could be secondary to liver mets vs stone in gallbladder neck. CBD within normal caliber. Leukocytosis of 29K now with t.bili of 4.5. Alk phos 2114. Lipase 3380. Abdomen distended, good colostomy output, tender in RUQ, +jaundice, urine dark juan f. Plan: There is no evidence of acute cholecystitis therefore no indication for nitesh cystectomy. Given extent of metastatic disease, would not recommend cholecystectomy unless absolutely indicated and in that instance would recommend transfer to tertiary center where there are hepatic specialists given liver metastasis. Another option in the instance of acute cholecystitis would be a cholecystostomy tube to relieve infection given her poor prognosis (again at tertiary center). is worried about her pain management and no longer believes he can take care of her. Recommend palliative/hospice consultations for patient and family to discuss goals of care. Scheduled for ERCP today Keep NPO Continue IV fluids Continue IV Zosyn for GI coverage Continue pain management Continue IV Zofran prn nausea Continue current medical management Our services signing off, please call with any changes, questions, or concerns. (2) Colon cancer metastasized to brain: (3) Colon cancer metastasized to bone: (4) Colon cancer metastasized to lung: (5) Elevated LFTs: Dr. Wright has seen and examined patient, agrees with above. History of Present Illness Reason for Consultation: Cholelithiasis Biliary obstruction with jaundice Acute pancreatitis Requesting Physician: Brigido Perdomo DO Attending Physician: Jenny Johnson MD History of Present Illness Stephanie is a 53 year old female with history of diffusely metastatic colon cancer discovered in 2014 and underwent subtotal colectomy and end colostomy. Has been through several rounds of chemotherapy, most recently started on 5FU regimen, due for treatment tomorrow. Follows with Dr. Olguin. Initially showed good response but then mets to lungs, liver, [employer] and now bone. She was transferred from [facility] with acute pancreatitis. states she was in hospital around 23 of May for dehydration. States she was able to go to [place] for vacation but increasingly got worse. states that she is in chronic pain and that she was having so much abdominal pain, chest pain, difficulty swallowing or eating anything and called the ambulance. She says that she has had abdominal pain for over a week, getting progressively worse. Located in the right upper abdomen. No fever or chills. The abdominal pain radiates to her back. Never had pain like this before. At [facility] she had a significant leukocytosis of 22k, lipase elevated at 6000. Bilirubin was 4 and alk phos was in the s. AST was elevated as well. CT of the abdomen/pelvis showed acute pancreatitis. It also showed the pulmonary and liver mets. Some thickening of her colon wall seen suggesting local spread of disease. Of note, there was some blastic lesions in spine suggestive of spine mets which is a new finding. She had an MRCP which showed large gallstones with contracted gallbladder however no evidence of acute cholecystitis. There is mass effect upon the hepatic duct at the hepatic hilum. This may be related to adjacent hepatic metastatic disease or a gallstone within the adjacent gallbladder neck. Labs today show leukocytosis of 29K. T. bili 4.5. AST 991, ALT 106, Alk 2114, Lipase 3380. Allergies Allergy/AdvReac Type Severity Reaction Status Date / Time peanut Allergy Intermediate Rash Verified 03/25/19 05:42 around the mouth aloe Allergy Mild RASH Verified 03/25/19 05:42 No Known Drug Allergies Allergy . Verified 03/25/19 05:42 cat dander AdvReac Mild SNEEZING, Verified 03/25/19 05:42 WATERY EYES Home Medications Home Medications Medication Instructions Recorded Confirmed Type 1 tab PO DAILY 01/24/19 03/25/19 History ferrous sulfate 325 mg PO DAILY 01/24/19 03/25/19 History dexamethasone 2 mg tablet 2 mg PO DAILY tab 04/05/19 04/05/19 History empagliflozin 10 mg tablet 10 mg PO DAILY 04/05/19 04/05/19 History Patient History Social History Preferred Language: Spanish Communication Ability: Effective Visual Impairment: Limited Hearing Ability: Normal Beliefs That Will Affect Care: Judaism Judaism Beliefs: SABIANIST marital status: Current Living Situation: Spouse current occupational status: disabled current occupation: Worked for school district Other Information That Helps Us Care for You: No Feels Safe at Home: Yes Safety Concerns: Feels Safe At This Time Smoking Status: Former smoker Tobacco Type: cigarettes Second Hand Exposure: No Hx Alcohol Use: No Hx Substance Use: No caffeine: Yes (Iced tea daily ) during the past year weight has: remained stable Physical Exam Constitutional: + ill appearing, + frail appearing and cooperative; no acute distress, not intoxicated appearing, no altered mental status and + not healthy appearing Respiratory: normal respiratory effort; no respiratory distress Gastrointestinal (Abdomen): Inspection/Auscultation: + abdomen distended Percussion/Palpation: + abdomen tender (RUQ) and abdomen soft; no guarding and abdomen not rigid Colostomy in LUQ with dark stool output Skin: no rashes, warm and dry + jaundice Psychiatric: Orientation: alert and oriented x 3 Results & Data Vital Signs (Past 12 Hours) Vital Signs Temp Pulse Resp BP Pulse Ox 06/03/19 07:30 36.5 C 98 H 19 128/80 98 06/03/19 04:20 36.5 C 100 H 19 131/86 97 06/03/19 00:00 36.7 C 115 H 17 124/78 96 Laboratory Results 06/03/19 06/03/19 06/03/19 Range/Units 06:02 06:02 06:02 WBC 29.43 H (4.8-10.8) K/uL RBC 2.84 L (4.2-5.4) M/uL Hgb 7.2 L (12.0-16.0) g/dL Hct 25.6 L (37-47) % MCV 90.1 (80-100) fL MCH 25.4 (25-34) pg MCHC 28.1 L (32-36) g/dL RDW Std Deviation 74.7 H (36.4-46.3) fL RDW Coeff of Sully 22.7 H (11.5-14.5) % Plt Count 161 (130-400) K/uL MPV 10.3 (7.4-10.4) fL Absolute Nucleated RBC 0.15 H (0-0) K/uL Nucleated RBC % (auto) 0.5 % Neutrophils % (Manual) 88.0 % Lymphocytes % (Manual) 3.4 % Monocytes % (Manual) 4.3 % Metamyelocytes % (Man) 0.9 % Myelocytes % (Man) 3.4 % Neutrophils # (Manual) 25.90 H (1.4-6.5) K/uL Total Absolute Neuts 25.90 H (1.4-6.5) K/uL Lymphocytes # (Manual) 1.00 L (1.2-3.4) K/uL Total Abs Lymphocytes 1.00 L (1.2-3.4) K/uL Monocytes # (Manual) 1.27 H (0.11-0.59) K/uL Metamyelocytes # (Man) 0.26 H (0-0) K/uL Myelocytes # (Manual) 1.00 H (0-0) K/uL Toxic Granulation 1+ Dohle Bodies 1+ Polychromasia 1+ Anisocytosis Present Spherocytes 1+ PT 14.6 H (9.0-12.0) Seconds INR 1.5 H (0.9-1.1) Sodium (136-145) mmol/L Potassium (3.5-5.1) mmol/L Chloride (98-107) mmol/L Carbon Dioxide (21-32) mmol/L Anion Gap (3-11) BUN (7-18) mg/dl Creatinine (0.6-1.2) mg/dl Est Cr Clr Drug Dosing ml/min Est GFR ( Amer) Est GFR (Non-Af Amer) BUN/Creatinine Ratio (10-20) Glucose (70-99) mg/dl POC Glucose (70-99) Calcium (8.5-10.1) mg/dl Iron (35-150) mcg/dl TIBC (250-450) mcg/dl Ferritin (8-388) ng/ml Total Bilirubin (0.2-1) mg/dl AST (15-37) U/L ALT (12-78) U/L Alkaline Phosphatase (45-117) U/L Total Protein (6.4-8.2) gm/dl Albumin (3.4-5.0) gm/dl Globulin (2.5-4.0) gm/dl Albumin/Globulin Ratio (0.9-2) Lipase (73-393) U/L Vitamin B12 > 2000 H (211-911) pg/ml Folate 19.11 (>5.38) ng/ml 06/03/19 06/03/19 06/02/19 Range/Units 06:02 05:54 23:50 WBC (4.8-10.8) K/uL RBC (4.2-5.4) M/uL Hgb (12.0-16.0) g/dL Hct (37-47) % MCV (80-100) fL MCH (25-34) pg MCHC (32-36) g/dL RDW Std Deviation (36.4-46.3) fL RDW Coeff of Sully (11.5-14.5) % Plt Count (130-400) K/uL MPV (7.4-10.4) fL Absolute Nucleated RBC (0-0) K/uL Nucleated RBC % (auto) % Neutrophils % (Manual) % Lymphocytes % (Manual) % Monocytes % (Manual) % Metamyelocytes % (Man) % Myelocytes % (Man) % Neutrophils # (Manual) (1.4-6.5) K/uL Total Absolute Neuts (1.4-6.5) K/uL Lymphocytes # (Manual) (1.2-3.4) K/uL Total Abs Lymphocytes (1.2-3.4) K/uL Monocytes # (Manual) (0.11-0.59) K/uL Metamyelocytes # (Man) (0-0) K/uL Myelocytes # (Manual) (0-0) K/uL Toxic Granulation Dohle Bodies Polychromasia Anisocytosis Spherocytes PT (9.0-12.0) Seconds INR (0.9-1.1) Sodium 135 L (136-145) mmol/L Potassium 4.3 (3.5-5.1) mmol/L Chloride 103 (98-107) mmol/L Carbon Dioxide 18 L (21-32) mmol/L Anion Gap 14.0 H (3-11) BUN 32 H (7-18) mg/dl Creatinine 2.08 H D (0.6-1.2) mg/dl Est Cr Clr Drug Dosing 25.3 ml/min Est GFR ( Amer) 30.3 Est GFR (Non-Af Amer) 26.1 BUN/Creatinine Ratio 15.4 (10-20) Glucose 96 (70-99) mg/dl POC Glucose 104 H 86 (70-99) Calcium 8.5 (8.5-10.1) mg/dl Iron 57 (35-150) mcg/dl TIBC 136 L (250-450) mcg/dl Ferritin 27641.4 H (8-388) ng/ml Total Bilirubin 4.5 H (0.2-1) mg/dl AST 991 H (15-37) U/L ALT 106 H (12-78) U/L Alkaline Phosphatase 2114 H (45-117) U/L Total Protein 5.7 L (6.4-8.2) gm/dl Albumin 1.3 L (3.4-5.0) gm/dl Globulin 4.4 H (2.5-4.0) gm/dl Albumin/Globulin Ratio 0.3 L (0.9-2) Lipase 3380 H (73-393) U/L Vitamin B12 (211-911) pg/ml Folate (>5.38) ng/ml 06/02/19 06/02/19 06/02/19 Range/Units 18:22 12:58 10:19 WBC (4.8-10.8) K/uL RBC (4.2-5.4) M/uL Hgb (12.0-16.0) g/dL Hct (37-47) % MCV (80-100) fL MCH (25-34) pg MCHC (32-36) g/dL RDW Std Deviation (36.4-46.3) fL RDW Coeff of Sully (11.5-14.5) % Plt Count (130-400) K/uL MPV (7.4-10.4) fL Absolute Nucleated RBC (0-0) K/uL Nucleated RBC % (auto) % Neutrophils % (Manual) % Lymphocytes % (Manual) % Monocytes % (Manual) % Metamyelocytes % (Man) % Myelocytes % (Man) % Neutrophils # (Manual) (1.4-6.5) K/uL Total Absolute Neuts (1.4-6.5) K/uL Lymphocytes # (Manual) (1.2-3.4) K/uL Total Abs Lymphocytes (1.2-3.4) K/uL Monocytes # (Manual) (0.11-0.59) K/uL Metamyelocytes # (Man) (0-0) K/uL Myelocytes # (Manual) (0-0) K/uL Toxic Granulation Dohle Bodies Polychromasia Anisocytosis Spherocytes PT (9.0-12.0) Seconds INR (0.9-1.1) Sodium (136-145) mmol/L Potassium (3.5-5.1) mmol/L Chloride (98-107) mmol/L Carbon Dioxide (21-32) mmol/L Anion Gap (3-11) BUN (7-18) mg/dl Creatinine (0.6-1.2) mg/dl Est Cr Clr Drug Dosing ml/min Est GFR ( Amer) Est GFR (Non-Af Amer) BUN/Creatinine Ratio (10-20) Glucose (70-99) mg/dl POC Glucose 85 87 (70-99) Calcium (8.5-10.1) mg/dl Iron (35-150) mcg/dl TIBC (250-450) mcg/dl Ferritin (8-388) ng/ml Total Bilirubin 4.1 H (0.2-1) mg/dl AST (15-37) U/L ALT (12-78) U/L Alkaline Phosphatase 1978 H (45-117) U/L Total Protein 5.7 L (6.4-8.2) gm/dl Albumin (3.4-5.0) gm/dl Globulin 4.2 H (2.5-4.0) gm/dl Albumin/Globulin Ratio 0.4 L (0.9-2) Lipase 4739 H (73-393) U/L Vitamin B12 (211-911) pg/ml Folate (>5.38) ng/ml Diagnostic Findings MRCP CLINICAL HISTORY: Gallstone pancreatitis. Metastatic disease. COMPARISON STUDY: Abdominal CT dated 04/22/2019. TECHNIQUE: Abdominal MRCP is performed utilizing various T2-weighted sequences in the axial and coronal planes. IV contrast was not administered for this ex amination. 3-D reformats are created and assessed. The examination is degraded by motion artifact. FINDINGS: The gallbladder is contracted and large gallstones are identified. There is no significant inflammatory change identified in the gallbladder fossa. The common bile duct is normal in caliber, measuring up to 2 mm diameter. There are no filling defects identified to indicate choledocholithiasis. There is distortion/mass effect on the common hepatic duct at the hepatic hilum, possibly related to hepatic metastatic disease or an adjacent gallstone within the gallbladder neck. There is no significant intrahepatic biliary ductal dilatation. The pancreatic duct is normal in caliber. The liver is markedly enlarged and infiltrated by diffuse/multifocal hepatic metastatic disease. This appears progressive from the 04/22/2019 examination. There is trace abdominal ascites. The unenhanced spleen, kidneys, and pancreas are grossly unremarkable. There is nodularity of the left adrenal gland. There is evidence of multifocal osseous metastatic disease. Pulmonary metastatic disease is identified at the lung bases. There are trace pleural effusions. No bowel obstruction is seen. An ostomy is noted in the left midabdomen. IMPRESSION: 1. The gallbladder is contracted around large gallstones and not well evaluated. There is no convincing evidence of acute cholecystitis. 2. There is no intra or extrahepatic biliary ductal dilatation, and no evidence of choledocholithiasis. 3. There is mass effect upon the common hepatic duct at the hepatic hilum. This may be related to adjacent hepatic metastatic disease or a gallstone within the adjacent gallbladder neck. 4. The liver is markedly enlarged and infiltrated by diffuse metastatic disease. This appears progressive from 04/22/2019. 5. There is multifocal osseous metastatic disease as well as metastatic disease seen at the lung bases. 6. There are trace pleural effusions. 7. Trace abdominal ascites.
--- NOTE | 2019-06-03 11:37 | Hospitalist Progress Note ---
Date of Service June 03, 2019 Assessment & Plan (1) Acute pancreatitis: Progressive pain for a week, secondary to mets to the liver WBC 21k and now increasing, LFTs continue to trend upward in an obstructive pattern secondary to multiple liver mets lipase was [address] [facility] [address] showed evidence of pancreatitis, lipase has trended downward to 3000 concerns for gall stone pancreatitis due to elevated LFT MRCP showed no CBD dilatation but possible obstruction of common hepatic duct [facility] eval appreciated--> ERCP on 06/03 showed biliary sludge but no obstruction. Had plastic CBD stent placed after sphincterotomy just in case was an obstruction GI thinks LFTs and lipase elevated due to grossly metastatic disease to the liver -reduce IVFs to 100mLs/hr NS -adv diet to clears -continue pain control with IV Dilaudid prn -follow LFTs in AM--> if not improving, recommend moving towards comfort care. She would not tolerate any further chemotherapy and her and children want to pursue comfort care -continue Zosyn to cover for possible cholangitis/cholecystitis for no-continue IV Pepcid (2) Elevated LFTs: Tbili is 4, ALK phos 2000, ALT 100 and AST 900 certainly bone mets likely contributing to higher elevation in Alk phos in addition to liver mets CBD stent placed 06/03/19 If pursues comfort care, no need to remove stent. If improves, would need stent removed in a few months -as above -follow LFTs (3) ASHLEY (acute kidney injury): Unsure of baseline trestle builder but continues to rise here--> now up to 2.08 from 1.77 Could be hepatorenal syndrome and at this point would be type 2 Is non-oliguric -continue IVFs -check UA and Ur Na+ --giving IV albumin 12.5gms now and consider again in AM -follow UOP -follow BMP in AM -avoid nephrotoxins, renally dose meds (4) Colon cancer metastasized to brain: was on Decadron po at home but had stopped as could not tolerate it Last dose of chemotherapy was end of April - continue IV Decadron 2mg but reduce to once daily -Oncology consult appreciated -Palliaitive care consult appreciated (5) Anemia: Hgb dropped down to 7.0 now. Fe studies show chronic disease pattern, B12 and folate normal With coagulopathy as well and some oozing during ERCP reported -pt still desires PRBC transfusion for now but does not want to continue transfusional support after this as he wants her to be made comfort measures only most likely in the near future -transfuse 1 unit PRBCs today -follow CBC in AM (6) Colon cancer metastasized to bone: new finding for pain, it is in spine pain control with dilaudid (7) Colon cancer metastasized to lung: noted, not hypoxic but on O2 post-ERCP (8) DM type 2 (diabetes mellitus, type 2): Novolog SS provided (9) Gallstones: seen on MRCP, non-obstructing on MRCP and ERCP Appreciate Surgery Consult-no surgical need here given comorbidities unless was emergent (10) Pain, abdominal: -secondary to metastatic colon CA -continue dilaudid and convert to either Fentanyl patch or po Roxanol fo rpain Palliative Care consulted (11) Dysphagia: noted complaint of dysphagia worsening could be due to [employer] mets, abd pain, opioids -Speech eval for dietary recommendations (12) Hypoalbuminemia: severe, albumin only 1.3, secondary to liver dysfunction and metastatic CA -giving IV albumin today -follow albumin in AM (13) Coagulopathy: INR 1.5, secondary to liver dysfunction and not likely to improve unless chemotherapy is effective and shrinking liver mets -giving Vit K 5mg IV x 1 -gave FFP 2 units after ERCP -follow INR (14) Leukocytosis: secondary to infection/cholangitis vs steroid effect vs stress response WBC count now up to 39k after ERCP -follow CBC (15) UTI (urinary tract infection): possible UTI bacteria in UA, told by patient that often she only has bacteria and no WBC with UTI will be on Zosyn, follow up urine culture from [facility] (16) DVT prophylaxis: Subjective I saw the patient and her family on 3 occasions today. Initially, pt denied any pain but said she needed to get her bottom "down into this chair" and was confused. She was repeating herself from time to time. Family reports she has been having visual and auditory hallucinations. She continued to deny abd pain but reports she frequently grabs her abdomen and moans out loud if she is turned or moved at any time. I discussed the case with GI today at the bedside and she went on to have an ERCP today. She apparently had some oozing of blood and was recommended to have FFP given her elevated INR. I also went back to discuss end of life issues and goals of care with the pt's , 2 daughters, and one son later in the day. is leaning towards making her comfort measures only after speaking to the GI doctor today who told them that if this stent does not relieve her obstruction, she will not survive much longer. requests for his to made as comfortable as possible. I then went back into the room with pt, her immediate family and her 2 sisters, and multiple extended family members all at the bedside. The pt was initially on the phone with her brother but then even after the phone was hung up, she continued to talk to her brother as if she was holding a phone in her hand. We discussed whether or not she would be agreeable to a blood transfusion at this time, indicating that it may prolong her life and may have some benefit as wlel as risk. She seemed to understand and did give permission; ultimately, her signed the consent form. Patient requests that her and children make decisions for her as she was feeling confused. He and the children want to see how her labs look in the morning and then make a final decision about whether to pursue comfort care and hospice or not. They all are in agreement that they don't want to see their mom in so much pain anymore and don't want her to pursue further chemotherapy even if she got well enough to receive more in the future. and children also said that patient always said she wanted to be a DNR/DNI-CODE STATUS was therefore changed to DNR/DNI Review of Systems Review of Systems: All systems reviewed & are unremarkable except as noted in HPI & below Physical Exam Constitutional: + ill appearing and + thin; no acute distress Eyes: + scleral abnormality (icterus) ENMT: external ear and nose normal, oropharynx normal Neck: trachea midline, no thyromegaly Respiratory: normal respiratory effort, lungs clear to auscultation Cardiovascular: RRR, no murmur, no edema Chest (Breasts): Chest: + vascular access device or port (left anterior chest wall) Gastrointestinal (Abdomen): Inspection/Auscultation: normal bowel sounds; + abdomen abnormal to inspection (ostomy bag LLQ with gas and small amount green stool) Percussion/Palpation: + abdomen tender (diffusely but moreso in RUQ), + hepatomegaly and + abdominal mass (multiple palpable masses right side abdomen); no hernia Musculoskeletal: Extremities: extremities normal to inspection; no cyanosis and no clubbing Skin: no rashes, warm and dry Neurologic: moves all extremities and awake; no focal motor deficits Psychiatric: Orientation: alert, oriented to person and cooperative; + not oriented to place and + not oriented to time Genitourinary: Wagner in place draining dark yellow urine Results & Data Vital Signs (Past 12 Hours) Vital Signs Temp Pulse Resp BP Pulse Ox 06/03/19 07:30 36.5 C 98 H 19 128/80 98 06/03/19 04:20 36.5 C 100 H 19 131/86 97 06/03/19 00:00 36.7 C 115 H 17 124/78 96 Laboratory Results 06/03/19 06/03/19 06/03/19 Range/Units 19:29 18:35 17:44 WBC (4.8-10.8) K/uL RBC (4.2-5.4) M/uL Hgb (12.0-16.0) g/dL Hct (37-47) % MCV (80-100) fL MCH (25-34) pg MCHC (32-36) g/dL RDW Std Deviation (36.4-46.3) fL RDW Coeff of Sully (11.5-14.5) % Plt Count (130-400) K/uL MPV (7.4-10.4) fL Absolute Nucleated RBC (0-0) K/uL Nucleated RBC % (auto) % Neutrophils % (Manual) % Lymphocytes % (Manual) % Monocytes % (Manual) % Metamyelocytes % (Man) % Myelocytes % (Man) % Neutrophils # (Manual) (1.4-6.5) K/uL Total Absolute Neuts (1.4-6.5) K/uL Lymphocytes # (Manual) (1.2-3.4) K/uL Total Abs Lymphocytes (1.2-3.4) K/uL Monocytes # (Manual) (0.11-0.59) K/uL Metamyelocytes # (Man) (0-0) K/uL Myelocytes # (Manual) (0-0) K/uL Toxic Granulation Dohle Bodies Polychromasia Anisocytosis Spherocytes PT (9.0-12.0) Seconds INR (0.9-1.1) Sodium (136-145) mmol/L Potassium (3.5-5.1) mmol/L Chloride (98-107) mmol/L Carbon Dioxide (21-32) mmol/L Anion Gap (3-11) BUN (7-18) mg/dl Creatinine (0.6-1.2) mg/dl Est Cr Clr Drug Dosing ml/min Est GFR ( Amer) Est GFR (Non-Af Amer) BUN/Creatinine Ratio (10-20) Glucose (70-99) mg/dl POC Glucose 132 H (70-99) Calcium (8.5-10.1) mg/dl Iron (35-150) mcg/dl TIBC (250-450) mcg/dl Ferritin (8-388) ng/ml Total Bilirubin (0.2-1) mg/dl AST (15-37) U/L ALT (12-78) U/L Alkaline Phosphatase (45-117) U/L Ammonia 43.0 H (11-32) umol/L Total Protein (6.4-8.2) gm/dl Albumin (3.4-5.0) gm/dl Globulin (2.5-4.0) gm/dl Albumin/Globulin Ratio (0.9-2) Lipase (73-393) U/L Vitamin B12 (211-911) pg/ml Folate (>5.38) ng/ml Blood Type Blood Type Recheck Antibody Screen Crossmatch 06/03/19 06/03/19 06/03/19 Range/Units 17:40 17:40 11:55 WBC 36.47 H* (4.8-10.8) K/uL RBC 2.74 L (4.2-5.4) M/uL Hgb 7.0 L (12.0-16.0) g/dL Hct 25.1 L (37-47) % MCV 91.6 (80-100) fL MCH 25.5 (25-34) pg MCHC 27.9 L (32-36) g/dL RDW Std Deviation 75.7 H (36.4-46.3) fL RDW Coeff of Sully 22.8 H (11.5-14.5) % Plt Count 141 (130-400) K/uL MPV 9.8 (7.4-10.4) fL Absolute Nucleated RBC 0.24 H (0-0) K/uL Nucleated RBC % (auto) 0.7 % Neutrophils % (Manual) % Lymphocytes % (Manual) % Monocytes % (Manual) % Metamyelocytes % (Man) % Myelocytes % (Man) % Neutrophils # (Manual) (1.4-6.5) K/uL Total Absolute Neuts (1.4-6.5) K/uL Lymphocytes # (Manual) (1.2-3.4) K/uL Total Abs Lymphocytes (1.2-3.4) K/uL Monocytes # (Manual) (0.11-0.59) K/uL Metamyelocytes # (Man) (0-0) K/uL Myelocytes # (Manual) (0-0) K/uL Toxic Granulation Dohle Bodies Polychromasia Anisocytosis Spherocytes PT (9.0-12.0) Seconds INR (0.9-1.1) Sodium (136-145) mmol/L Potassium (3.5-5.1) mmol/L Chloride (98-107) mmol/L Carbon Dioxide (21-32) mmol/L Anion Gap (3-11) BUN (7-18) mg/dl Creatinine (0.6-1.2) mg/dl Est Cr Clr Drug Dosing ml/min Est GFR ( Amer) Est GFR (Non-Af Amer) BUN/Creatinine Ratio (10-20) Glucose (70-99) mg/dl POC Glucose 117 H (70-99) Calcium (8.5-10.1) mg/dl Iron (35-150) mcg/dl TIBC (250-450) mcg/dl Ferritin (8-388) ng/ml Total Bilirubin (0.2-1) mg/dl AST (15-37) U/L ALT (12-78) U/L Alkaline Phosphatase (45-117) U/L Ammonia (11-32) umol/L Total Protein (6.4-8.2) gm/dl Albumin (3.4-5.0) gm/dl Globulin (2.5-4.0) gm/dl Albumin/Globulin Ratio (0.9-2) Lipase (73-393) U/L Vitamin B12 (211-911) pg/ml Folate (>5.38) ng/ml Blood Type O Positive Blood Type Recheck Antibody Screen NEGATIVE Crossmatch See Detail 06/03/19 06/03/19 06/03/19 Range/Units 06:02 06:02 06:02 WBC 29.43 H (4.8-10.8) K/uL RBC 2.84 L (4.2-5.4) M/uL Hgb 7.2 L (12.0-16.0) g/dL Hct 25.6 L (37-47) % MCV 90.1 (80-100) fL MCH 25.4 (25-34) pg MCHC 28.1 L (32-36) g/dL RDW Std Deviation 74.7 H (36.4-46.3) fL RDW Coeff of Sully 22.7 H (11.5-14.5) % Plt Count 161 (130-400) K/uL MPV 10.3 (7.4-10.4) fL Absolute Nucleated RBC 0.15 H (0-0) K/uL Nucleated RBC % (auto) 0.5 % Neutrophils % (Manual) 88.0 % Lymphocytes % (Manual) 3.4 % Monocytes % (Manual) 4.3 % Metamyelocytes % (Man) 0.9 % Myelocytes % (Man) 3.4 % Neutrophils # (Manual) 25.90 H (1.4-6.5) K/uL Total Absolute Neuts 25.90 H (1.4-6.5) K/uL Lymphocytes # (Manual) 1.00 L (1.2-3.4) K/uL Total Abs Lymphocytes 1.00 L (1.2-3.4) K/uL Monocytes # (Manual) 1.27 H (0.11-0.59) K/uL Metamyelocytes # (Man) 0.26 H (0-0) K/uL Myelocytes # (Manual) 1.00 H (0-0) K/uL Toxic Granulation 1+ Dohle Bodies 1+ Polychromasia 1+ Anisocytosis Present Spherocytes 1+ PT (9.0-12.0) Seconds INR (0.9-1.1) Sodium (136-145) mmol/L Potassium (3.5-5.1) mmol/L Chloride (98-107) mmol/L Carbon Dioxide (21-32) mmol/L Anion Gap (3-11) BUN (7-18) mg/dl Creatinine (0.6-1.2) mg/dl Est Cr Clr Drug Dosing ml/min Est GFR ( Amer) Est GFR (Non-Af Amer) BUN/Creatinine Ratio (10-20) Glucose (70-99) mg/dl POC Glucose (70-99) Calcium (8.5-10.1) mg/dl Iron (35-150) mcg/dl TIBC (250-450) mcg/dl Ferritin (8-388) ng/ml Total Bilirubin (0.2-1) mg/dl AST (15-37) U/L ALT (12-78) U/L Alkaline Phosphatase (45-117) U/L Ammonia (11-32) umol/L Total Protein (6.4-8.2) gm/dl Albumin (3.4-5.0) gm/dl Globulin (2.5-4.0) gm/dl Albumin/Globulin Ratio (0.9-2) Lipase (73-393) U/L Vitamin B12 > 2000 H (211-911) pg/ml Folate 19.11 (>5.38) ng/ml Blood Type Blood Type Recheck O Positive Antibody Screen Crossmatch 06/03/19 06/03/19 06/03/19 Range/Units 06:02 06:02 05:54 WBC (4.8-10.8) K/uL RBC (4.2-5.4) M/uL Hgb (12.0-16.0) g/dL Hct (37-47) % MCV (80-100) fL MCH (25-34) pg MCHC (32-36) g/dL RDW Std Deviation (36.4-46.3) fL RDW Coeff of Sully (11.5-14.5) % Plt Count (130-400) K/uL MPV (7.4-10.4) fL Absolute Nucleated RBC (0-0) K/uL Nucleated RBC % (auto) % Neutrophils % (Manual) % Lymphocytes % (Manual) % Monocytes % (Manual) % Metamyelocytes % (Man) % Myelocytes % (Man) % Neutrophils # (Manual) (1.4-6.5) K/uL Total Absolute Neuts (1.4-6.5) K/uL Lymphocytes # (Manual) (1.2-3.4) K/uL Total Abs Lymphocytes (1.2-3.4) K/uL Monocytes # (Manual) (0.11-0.59) K/uL Metamyelocytes # (Man) (0-0) K/uL Myelocytes # (Manual) (0-0) K/uL Toxic Granulation Dohle Bodies Polychromasia Anisocytosis Spherocytes PT 14.6 H (9.0-12.0) Seconds INR 1.5 H (0.9-1.1) Sodium 135 L (136-145) mmol/L Potassium 4.3 (3.5-5.1) mmol/L Chloride 103 (98-107) mmol/L Carbon Dioxide 18 L (21-32) mmol/L Anion Gap 14.0 H (3-11) BUN 32 H (7-18) mg/dl Creatinine 2.08 H D (0.6-1.2) mg/dl Est Cr Clr Drug Dosing 25.3 ml/min Est GFR ( Amer) 30.3 Est GFR (Non-Af Amer) 26.1 BUN/Creatinine Ratio 15.4 (10-20) Glucose 96 (70-99) mg/dl POC Glucose 104 H (70-99) Calcium 8.5 (8.5-10.1) mg/dl Iron 57 (35-150) mcg/dl TIBC 136 L (250-450) mcg/dl Ferritin 62568.4 H (8-388) ng/ml Total Bilirubin 4.5 H (0.2-1) mg/dl AST 991 H (15-37) U/L ALT 106 H (12-78) U/L Alkaline Phosphatase 2114 H (45-117) U/L Ammonia (11-32) umol/L Total Protein 5.7 L (6.4-8.2) gm/dl Albumin 1.3 L (3.4-5.0) gm/dl Globulin 4.4 H (2.5-4.0) gm/dl Albumin/Globulin Ratio 0.3 L (0.9-2) Lipase 3380 H (73-393) U/L Vitamin B12 (211-911) pg/ml Folate (>5.38) ng/ml Blood Type Blood Type Recheck Antibody Screen Crossmatch 06/02/19 Range/Units 23:50 WBC (4.8-10.8) K/uL RBC (4.2-5.4) M/uL Hgb (12.0-16.0) g/dL Hct (37-47) % MCV (80-100) fL MCH (25-34) pg MCHC (32-36) g/dL RDW Std Deviation (36.4-46.3) fL RDW Coeff of Sully (11.5-14.5) % Plt Count (130-400) K/uL MPV (7.4-10.4) fL Absolute Nucleated RBC (0-0) K/uL Nucleated RBC % (auto) % Neutrophils % (Manual) % Lymphocytes % (Manual) % Monocytes % (Manual) % Metamyelocytes % (Man) % Myelocytes % (Man) % Neutrophils # (Manual) (1.4-6.5) K/uL Total Absolute Neuts (1.4-6.5) K/uL Lymphocytes # (Manual) (1.2-3.4) K/uL Total Abs Lymphocytes (1.2-3.4) K/uL Monocytes # (Manual) (0.11-0.59) K/uL Metamyelocytes # (Man) (0-0) K/uL Myelocytes # (Manual) (0-0) K/uL Toxic Granulation Dohle Bodies Polychromasia Anisocytosis Spherocytes PT (9.0-12.0) Seconds INR (0.9-1.1) Sodium (136-145) mmol/L Potassium (3.5-5.1) mmol/L Chloride (98-107) mmol/L Carbon Dioxide (21-32) mmol/L Anion Gap (3-11) BUN (7-18) mg/dl Creatinine (0.6-1.2) mg/dl Est Cr Clr Drug Dosing ml/min Est GFR ( Amer) Est GFR (Non-Af Amer) BUN/Creatinine Ratio (10-20) Glucose (70-99) mg/dl POC Glucose 86 (70-99) Calcium (8.5-10.1) mg/dl Iron (35-150) mcg/dl TIBC (250-450) mcg/dl Ferritin (8-388) ng/ml Total Bilirubin (0.2-1) mg/dl AST (15-37) U/L ALT (12-78) U/L Alkaline Phosphatase (45-117) U/L Ammonia (11-32) umol/L Total Protein (6.4-8.2) gm/dl Albumin (3.4-5.0) gm/dl Globulin (2.5-4.0) gm/dl Albumin/Globulin Ratio (0.9-2) Lipase (73-393) U/L Vitamin B12 (211-911) pg/ml Folate (>5.38) ng/ml Blood Type Blood Type Recheck Antibody Screen Crossmatch PG Care Time/CCT Total # of Minutes Spent Total Time Spent with Patient: Total time spent is greater than 50% in coordination of care (as documented) at patient's floor/unit and/or counseling patient: 90 total minutes today
[2019-06-03] MEDS: ENOXAPARIN INJ 30 MG/0.3 ML SYR SQ SCH (13:40)
[2019-06-03] MEDS ORDERED: PROPOFOL IV EMULSION 10 MG/ML 20 ML VIAL IV ONE (13:42)
[2019-06-03] MEDS ORDERED: LIDOCAINE HCL 2% 2 ML VIAL/AMP(20MG/ML) INFIL ONE (13:42)
--- NOTE | 2019-06-03 13:59 | Consultation Report ---
DATE OF CONSULTATION: 06/03/2019 ONCOLOGY CONSULTATION REASON FOR CONSULTATION: Metastatic colorectal cancer, admitted for subacute onset abdominal pain. HISTORY OF PRESENT ILLNESS: Stephanie is a very pleasant 53-year-old female patient with history of diffusely metastatic colorectal cancer, currently under Dr. Olguin's care and presented to our Emergency Room yesterday with acute onset abdominal pain in the epigastric region to be specific. She initially presented to [facility] and was diagnosed with acute pancreatitis. She had been struggling with nausea without emesis; however, her appetite has declined significantly. When she had presented to [facility], her WBCs were 22,000 with a significantly elevated lipase and alkaline phosphatase in the 2,[address] scan performed at [facility], confirmed acute pancreatitis in addition to both pulmonary and liver metastatic disease. There were some blastic spinal lesions also noted which is new. The patient is currently under Dr. Olguin's care, had been receiving a combination FOLFOX with bevacizumab. Oxaliplatin was discontinued several cycles ago because of toxicities. Her last chemotherapy was in late April. PAST MEDICAL HISTORY: Again significant for metastatic colorectal cancer, iron deficiency and diabetes mellitus. MEDICATIONS: Include vitamin 1 p.o. daily, ferrous sulfate 325 mg p.o. daily, dexamethasone 2 mg p.o. daily, empagliflozin 10 mg p.o. daily. ALLERGIES: PEANUTS, ALOE AND CAT DANDER. SOCIAL HISTORY: The patient is . She is currently on disability. She is a reformed cigarette smoker. Negative for alcohol or illicit drugs. FAMILY HISTORY: Non-contributable. REVIEW OF SYSTEMS: Positive for intermittent low-grade fever, anorexia. SKIN: No rashes or lesions. No history of dermatoses. HEENT: Negative for headaches, lightheadedness or dizziness. No acute visual or hearing deficits. No sinus symptoms, sore throat or dysphagia. LYMPH: No history of lymphadenopathy. CARDIAC: Negative for coronary artery disease, no angina or palpitations. PULMONARY: Negative for COPD. No shortness of breath, dyspnea or orthopnea. GASTROINTESTINAL: As per HPI. GENITOURINARY: No hematuria, dysuria, or urinary incontinence. PSYCHIATRIC: Negative for anxiety, depression or psychoses. ENDOCRINE: Positive for diabetes. NEUROLOGIC: Negative for seizure, stroke, or migraine headache. HEMATOLOGIC: Positive for cytopenias, attributable to treatment, particularly anemia, positive for leukocytosis. PHYSICAL EXAMINATION: GENERAL: Very pleasant 53-year-old female, in no acute distress. VITAL SIGNS: Temperature 36.5, pulse 98, respiratory rate 19, blood pressure 128/80. SKIN: Without rash or lesion. EXTREMITIES: No petechiae, ecchymosis, otherwise noted. HEENT: Atraumatic, normocephalic. EYES: PERRLA, EOMI. Sclerae nonicteric. No conjunctival injection. Nares are patent without rhinorrhea or discharge. Throat clear. Tongue midline. Mucous membranes are moist. NECK: Supple without JVD or thyromegaly. LYMPH: No cervical or supraclavicular palpable nodes. HEART: Regular rate and rhythm. No clicks, rubs, murmurs or gallops. LUNGS: Clear to auscultation bilaterally. ABDOMEN: Soft, nondistended. She has diffuse point tenderness mostly around the epigastrium. No rigidity or guarding. EXTREMITIES: No clubbing, cyanosis or edema. NEUROLOGICALLY: She is awake, alert and oriented x3. Cranial nerves are intact. LABORATORY DATA: Lipase 3380, albumin 1.3, alkaline phosphatase 2114, AST 991, ALT 106, ferritin is 22,744, TIBC 136, creatinine 2.08. PT 14.6, INR 1.5. WBC count 29,430, hemoglobin 7.2, platelet count 161. IMPRESSION: 1. Acute pancreatitis. 2. Hypoalbuminemia. 3. Elevated liver transaminases. 4. Severe anemia. 5. Mild coagulopathy. 6. Acute renal injury. PLAN: Setphanie is a very pleasant 53-year-old female patient of Dr. Curiel, currently under care for metastatic colorectal cancer. She had presented with subacute onset periumbilical pain to [facility], diagnosed with an acute pancreatitis. She is presently on bowel rest, receiving IV hydration and broad-spectrum antibiotics. Clearly, she is in serious trouble here. She is now coagulopathic, which I suspect is probably nutritional as well as significant tumor burden in the liver itself. Perhaps, vitamin K should be administered, 5-10 mg subQ should suffice. She also should receive some supplemental albumin until she is able to eat. Her renal function suggests she is severely dehydrated; however, this may also be a part of possible hepatorenal syndrome. She last received chemotherapy a couple weeks ago and would not continue chemotherapy until she is metabolically stable. Perhaps a couple units of blood would also be helpful. We will continue to follow Stephanie closely here in the next couple of days. I will discuss personally with Dr. Olguin regarding the utility of continuing treatment once she is stable. Unfortunately, her prognosis is exceedingly poor. I agree with current medical management otherwise and have nothing further to add. Thank you very much for assisting us in the care of this very pleasant but unfortunate patient. LISA
[2019-06-03] MEDS ORDERED: fentaNYL citrate 100 MCG/2 ML VIAL ONE (14:03)
--- NOTE | 2019-06-03 14:04 | History & Physical Bridge Note ---
Date of Service June 03, 2019 History & Physical Bridge Note I have examined the patient, reviewed the History & Physical and in the interval since the performance of the History & Physical I have noted the following changes of clinical significance: no changes noted Discussed with patient and family, need for ERCP in view of possible cholangitis, risk, benefit and alternatives, she agreed and consented.
[2019-06-03] MEDS ORDERED: INDOMETHACIN 50 MG SUPP PR STA (14:08)
--- NOTE | 2019-06-03 14:21 | Anesthesiology Consultation ---
Date of Service June 03, 2019 Assessment & Plan Chart Review Chart Review: Acceptable Risk for Surgery and Patient NOT seen in Pre Admission Testing Consults Requested none ASA ASA4 Proposed Anesthesia Anesthesia Type: General Anesthesia Line Insertion: Arterial line Risk / Benefits Reviewed With: PT / POA / Parent / Guardian, Accepts Plan and Informed Consent Obtained History Surgery Operation Date: 06/03/19 13:55 Proposed Procedures p Endoscopic Retrograde Cholangiopancreatogram - Laura Espinoza MD Height/Weight Height: 5 ft 3 in Weight: 55 kg Allergies Allergy/AdvReac Type Severity Reaction Status Date / Time peanut Allergy Intermediate Rash Verified 03/25/19 05:42 around the mouth aloe Allergy Mild RASH Verified 03/25/19 05:42 No Known Drug Allergies Allergy . Verified 03/25/19 05:42 cat dander AdvReac Mild SNEEZING, Verified 03/25/19 05:42 WATERY EYES Medications Home Medications Medication Instructions Recorded Confirmed Last Taken 1 tab PO DAILY 01/24/19 03/25/19 03/24/19 09:00 ferrous sulfate 325 mg PO DAILY 01/24/19 03/25/19 03/24/19 09:00 dexamethasone 2 mg tablet 2 mg PO DAILY tab 04/05/19 04/05/19 Unknown empagliflozin 10 mg tablet 10 mg PO DAILY 04/05/19 04/05/19 Unknown Active Medications Generic Name Dose Route Start Last Admin Trade Name Freq PRN Reason Stop Dose Admin Enoxaparin Sodium 30 mg 06/02/19 14:00 06/03/19 13:40 Lovenox SQ 07/02/19 13:59 Not Given Q24H MANI Heparin Sodium (Porcine) 5 ml 06/02/19 10:30 06/02/19 10:33 Heparin Sod 100 Unit/Ml Flush FLUSH 07/02/19 10:29 5 ml PRN PRN Administration Flush Hydromorphone HCl 1 mg 06/02/19 10:27 06/03/19 08:48 Dilaudid IV 06/16/19 10:26 1 mg Q3H PRN Administration Pain Sodium Chloride 1,000 mls @ 200 mls/hr 06/02/19 10:30 06/03/19 13:48 Nss 1000ml IV 07/02/19 10:29 0 mls/hr .Q5H MANI Infusion Piperacillin Sod/Tazobactam 115 mls @ 28.75 mls/hr 06/02/19 18:00 06/03/19 13:14 Sod 3.375 gm/ Dextrose IV 06/12/19 17:59 Infused Q8H MANI Infusion Famotidine 20 mg/ Syringe 5 mls @ 2.5 mls/min 06/02/19 15:00 06/03/19 08:49 IV 07/02/19 14:59 2.5 mls/min DAILY MANI Administration Dexamethasone 2 mg/ Syringe 0.5 mls @ 1 mls/min 06/02/19 21:00 06/03/19 08:49 IV 07/02/19 20:59 1 mls/min Q12 MANI Administration Insulin Aspart 0 units 06/02/19 18:00 06/03/19 12:18 Novolog Flexpen SC 07/02/19 17:59 Not Given Q6 MANI NPO Date Last Intake of Fluids: 06/03/19 Time Last Intake of Fluids: 12:00 Last Intake of Fluids Comment: Pt had a couple ice chips Date Last Intake of Solids: 05/31/19 Time Last Intake of Solids: 21:00 Past Medical History Medical History History of chemotherapy (Acute) 06/03/15 - 03/15/16 - Folfox/Avastin 03/25/16 - 07/03/17 - Irinotecan/Cetuximab 10/2017 - 12/2018 - Lonsurf Anemia Anxiety Cancer Metastatic Colon CA w/ mets to lung, liver and brain (brain mets recently dx during [place] visit 01/2019 for stroke like symptoms 2/2 UTI per pt report) - has since received radiation treatment and steroid taper for brain mets Depression NO MEDICATIONS History of recent steroid use steroid taper for brain mets Neutropenia RECENTLY LABS 01/13/19 Recent urinary tract infection RESOLVED Temporomandibular joint disorder "JUST GRIND TEETH" Exercise / Class Metabolic Activity III < 4 Walking/Shop/Light housework Past Family History Family History Mother No problems noted. Father , Passed age 60 in MVA No problems noted. Uncle , Maternal - Passed in 60's of Lung CA No problems noted. Brother No problems noted. Sister No problems noted. Sister No problems noted. Sister No problems noted. Daughter No problems noted. Daughter No problems noted. Son No problems noted. Past Surgical History Surgical History History of bowel resection 2014 History of colonoscopy 2014 History of colostomy 05/11/15 History of mandibular surgery 1994 - PALATE EXPANSION AND "PULLED LOWER JAW FORWARD WITH PLATES AND SCREWS" History of removal of Port-a-Cath 2016 History of vascular access device 2015 A-port placement Past Anesthesia History No Hx of Anesthesia Complications and No Family Hx of Anesthesia Complications History of PONV No Hx of PONV and No Hx of Motion Sickness Social History Smoking Status: Former smoker tobacco type: cigarettes Hx Alcohol Use: No Hx Substance Use: No substance use type: does not use Physical Exam Vital Signs Last Vital Signs Temp 36.5 C 06/03/19 14:06 Pulse 104 H 06/03/19 14:06 Resp 20 06/03/19 14:06 BP 128/87 06/03/19 14:06 Pulse Ox 97 06/03/19 14:06 ENMT Mouth: + small oral opening; no dentition abnormality Thyromental Distance: < 3.5 Finger Breadths Mallampati Class: III Neck normal visual inspection and trachea midline; neck extension not limited Respiratory normal respiratory effort Auscultation: lungs clear to auscultation bilaterally Cardiovascular Rate/Rhythm: regular rhythm and + tachycardic Heart Sounds: no murmur Vessels: no carotid bruit Musculoskeletal Spine: normal cervical ROM Neurologic moves all extremities Motor/Sensory: no sensory deficit Psychiatric Orientation: alert and oriented x 3 Testing Laboratory Results 06/03/19 06:02 06/03/19 06:02 PT 14.6 Seconds (9.0-12.0) H 06/03/19 06:02 INR 1.5 (0.9-1.1) H 06/03/19 06:02 06/03/19 06/03/19 11:55 05:54 POC Glucose 117 H 104 H
[2019-06-03] MEDS ORDERED: FLUMAZENIL 0.1 MG/1 ML 10 ML VIAL IV PRN (14:28)
[2019-06-03] MEDS ORDERED: fentaNYL citrate 100 MCG/2 ML VIAL IV PRN (14:28)
[2019-06-03] MEDS ORDERED: PROMETHAZINE HCL 12.5 MG in SODIUM CHLORIDE 0.9% 50 ML IV PRN (14:28)
[2019-06-03] MEDS ORDERED: ONDANSETRON INJ 2 MG/ML 2 ML VIAL IV PRN (14:28)
[2019-06-03] MEDS ORDERED: ePHEDrine sulfate 50 MG/ML AMP IV PRN (14:28)
[2019-06-03] MEDS ORDERED: NALOXONE HCL 0.4 MG/1 ML VIAL/CARP IV PRN (14:28)
[2019-06-03] MEDS ORDERED: ATROPINE SULFATE 0.1 MG/ML 10ML SYR IV PRN (14:28)
[2019-06-03] MEDS ORDERED: ETOMIDATE 2 MG/ML 20 ML VIAL IV ONE (15:00)
[2019-06-03] MEDS ORDERED: ONDANSETRON INJ 2 MG/ML 2 ML VIAL ONE (15:00)
--- NOTE | 2019-06-03 15:04 | Palliative Care Consultation ---
Date of Consultation June 03, 2019 Assessment & Plan (1) Palliative care encounter: Patient is a 53-year-old female with a diagnosis of stage IV metastatic colon cancer-diagnosed in 2014. Patient presented to the hospital on 06/02 with severe abdominal pain-patient was initially seen at [facility], CT scan showed multiple gallstones-no evidence for cholecystitis. Patient also had a lung lesions-largest 1.8 cm in the left lower lobe, multiple liver mets, pancreatic head enlargement, new spinal mets, masslike thickening of the sigmoid colon-2.3 x 3.7 cm as well as her ostomy in the left midabdomen. Patient was sent to [facility] from [facility] for further evaluation and treatment of her gallstones. Patient had an MRI done here-which showed increased in her liver mets compared to her scan on 04/22 in addition to similar findings from the CT scan from [facility]. Met with patient, and daughter in her room this a.m.-patient reports she was having severe abdominal pain for the past few weeks requiring oxycodone. Prior to that patient had some low back pain for which she only took Motrin or Tylenol. Patient was diagnosed with stage IV metastatic colon cancer in 2014- mets to bone, lung, liver and brain. Patient has received multiple chemotherapy regimes-has had disease progression-her last chemo was the end of April. Patient was found to have brain mets on MRI in January of this year when she presented with diplopia, facial droop and foot drop-patient received XRT and completed that in February of this year-all her neuro symptoms resolved. Family reports some increased confusion-this could be related to her use of opioid pain medication as well as elevated bilirubin. Of note-patient reports dysphasia which started approximately a week ago-this is for liquids as well as solids. Patient was to have a follow-up brain MRI in May-will need to see if this is a lready scheduled.. Pain: Onset 2 to 3 weeks ago. Diffuse lower abdomen, severe, constant. Exacerbated by eating, some relief with PRN oxycodone-patient on IV Dilaudid at 1 mg as needed-she required 2 doses in the past 24 hours. Patient is also on Decadron at 2 mg every 12 hours -Stage IV metastatic colon cancer-last chemo the end of April-scan shows disease progression-further treatment per oncology -Cancer related pain-primarily some worsening low back pain-patient has been doing well with PRN Motrin or PRN Tylenol. Recent abdominal pain-likely related to gallstones -Abdominal pain-large gallstones with evidence of pancreatitis-continue PRN IV Dilaudid, will follow postoperatively to assist with pain control if needed -Gallstones-patient to go to the OR today for ERCP -Widely metastatic disease-with mets to lung, liver, brain and bone-patient on Decadron twice daily, continue pain control, further plans per oncology -Dysphasia-new onset-dysphasia for liquids as well as solids. Will defer further work-up to attending team. Will continue to follow and assist family with medical decision making and offer patient outpatient follow-up in palliative clinic. (2) Pain, abdominal: (3) Gallstones: (4) Colon cancer metastasized to lung: (5) Colon cancer metastasized to bone: (6) Colon cancer metastasized to brain: (7) Dysphasia: History of Present Illness Reason for Consultation: Assist with cancer related pain, goals of care as well as CODE STATUS Requesting Physician: Dr. Johnson Attending Physician: Jenny Johnson MD History of Present Illness Patient is a 53-year-old female with a diagnosis of stage IV metastatic colon cancer-diagnosed in 2014. Patient presented to the hospital on 06/02 with severe abdominal pain-patient was initially seen at [facility], CT scan showed multiple gallstones-no evidence for cholecystitis. Patient also had a lung lesions- largest 1.8 cm in the left lower lobe, multiple liver mets, pancreatic head enlargement, new spinal mets, masslike thickening of the sigmoid colon-2.3 x 3.7 cm as well as her ostomy in the left midabdomen. Patient was sent to [facility] from [facility] for further evaluation and treatment of her gallstones. Patient had an MRI done here-which showed increased in her liver mets compared to her scan on 04/22 in addition to similar findings from the CT scan from [facility]. Met with patient, and daughter in her room this a.m.-patient reports she was having severe abdominal pain for the past few weeks requiring oxycodone. Prior to that patient had some low back pain for which she only took Motrin or Tylenol. Patient was diagnosed with stage IV metastatic colon cancer in 2014- mets to bone, lung, liver and brain. Patient has received multiple chemotherapy regimes-has had disease progression-her last chemo was the end of April. Patient was found to have brain mets on MRI in January of this year when she presented with diplopia, facial droop and foot drop-patient received XRT and completed that in February of this year-all her neuro symptoms resolved. Family reports some increased confusion-this could be related to her use of opioid pain medication as well as elevated bilirubin. Of note-patient reports dysphasia which started approximately a week ago-this is for liquids as well as solids. Patient was to have a follow-up brain MRI in May-will need to see if this is already scheduled.. Pain: Onset 2 to 3 weeks ago. Diffuse lower abdomen, severe, constant. Exacerbated by eating, some relief with PRN oxycodone-patient on IV Dilaudid at 1 mg as needed-she required 2 doses in the past 24 hours. Patient is also on Decadron at 2 mg every 12 hours Allergies Allergy/AdvReac Type Severity Reaction Status Date / Time peanut Allergy Intermediate Rash Verified 03/25/19 05:42 around the mouth aloe Allergy Mild RASH Verified 03/25/19 05:42 No Known Drug Allergies Allergy . Verified 03/25/19 05:42 cat dander AdvReac Mild SNEEZING, Verified 03/25/19 05:42 WATERY EYES Home Medications Home Medications Medication Instructions Recorded Confirmed Type 1 tab PO DAILY 01/24/19 03/25/19 History ferrous sulfate 325 mg PO DAILY 01/24/19 03/25/19 History dexamethasone 2 mg tablet 2 mg PO DAILY tab 04/05/19 04/05/19 History empagliflozin 10 mg tablet 10 mg PO DAILY 04/05/19 04/05/19 History Patient History Medical History History of chemotherapy (Acute) 06/03/15 - 03/15/16 - Folfox/Avastin 03/25/16 - 07/03/17 - Irinotecan/Cetuximab 10/2017 - 12/2018 - Lonsurf Anemia Anxiety Cancer Metastatic Colon CA w/ mets to lung, liver and brain (brain mets recently dx during [place] visit 01/2019 for stroke like symptoms 2/2 UTI per pt report) - has since received radiation treatment and steroid taper for brain mets Depression NO MEDICATIONS History of recent steroid use steroid taper for brain mets Neutropenia RECENTLY LABS 01/13/19 Recent urinary tract infection RESOLVED Temporomandibular joint disorder "JUST GRIND TEETH" Surgical History History of bowel resection 2014 History of colonoscopy 2015 History of colostomy 05/11/15 History of mandibular surgery 1993 - PALATE EXPANSION AND "PULLED LOWER JAW FORWARD WITH PLATES AND SCREWS" History of removal of Port-a-Cath 2016 History of vascular access device 2015 A-port placement Family History Mother No problems noted. Father , Passed age 60 in MVA No problems noted. Uncle , Maternal - Passed in 60's of Lung CA No problems noted. Brother No problems noted. Sister No problems noted. Sister No problems noted. Sister No problems noted. Daughter No problems noted. Daughter No problems noted. Son No problems noted. Social History Preferred Language: Serbian Communication Ability: Effective Visual Impairment: Limited Hearing Ability: Normal Beliefs That Will Affect Care: Confucianism Confucianism Beliefs: SIKH marital status: Current Living Situation: Spouse current occupational status: disabled current occupation: Worked for school district Other Information That Helps Us Care for You: No Feels Safe at Home: Yes Safety Concerns: Feels Safe At This Time Smoking Status: Former smoker Tobacco Type: cigarettes Second Hand Exposure: No Hx Alcohol Use: No Hx Substance Use: No caffeine: Yes (Iced tea daily ) during the past year weight has: remained stable Results & Data Vital Signs (Past 12 Hours) Vital Signs Temp Pulse Resp BP Pulse Ox 06/03/19 14:06 97.7 F 104 H 20 128/87 97 06/03/19 11:53 97.7 F 104 H 20 128/87 97 06/03/19 07:30 97.7 F 98 H 19 128/80 98 06/03/19 04:20 97.7 F 100 H 19 131/86 97 PG Care Time/CCT Total # of Minutes Spent Total Time Spent with Patient: Total time spent is greater than 50% in coordination of care (as documented) at patient's floor/unit and/or counseling patient: Time Spent Attending Total time spent 70 minutes with greater than 50% of the time spent at bedside assessing patient's current condition as well as providing support to family
[2019-06-03] MEDS ORDERED: LABETALOL HCL IV 5 MG/ML 20ML IV ONE ×2 (15:06→16:21)
[2019-06-03] MEDS ORDERED: ALBUMIN HUMAN 5% 12.5 GM/250 ML VIAL IV ONE (15:19)
[2019-06-03] MEDS ORDERED: SODIUM CHLORIDE 0.9% 250 ML IV PRN ×3 (15:55→19:03)
--- NOTE | 2019-06-03 16:01 | Operative Report ---
Post Operative Report Pre & Post Diagnosis Operation Date: 06/03/19 13:55 Pre-Op Diagnosis: jaundice Post-Op Diagnosis: jaundice, gallstones Procedure Operation Date: 06/03/19 13:55 Actual Procedures p Endoscopic Retrograde Cholangiopancreatogram, sphincterotomy and biliary stent placement - Laura Espinoza MD Surgeon Laura Espinoza MD Field Contact Person None Estimated Blood Loss 0 Findings See Below (Diffuse intrahepatic obstruction related to liver mets, Sphincterotomy done and CBD stent placed.) Specimens None Description of Procedure ERCP I attest to the content of the Intraoperative Record and any orders documented therein. Any exceptions are noted below.
--- NOTE | 2019-06-03 16:34 | GI REPORT ---
Patient Name: Stephanie Almanzar Procedure Date: 06/03/2019 1:53 PM Date of : 1965 Admit Type: Inpatient Age: 53 Gender: Female Attending MD: Laura Espinoza MD Procedure: ERCP Providers: Laura Espinoza MD Referring MD: Jenny Johnson Md, Jasvir Jean Do, Mark Tilyou Indications: Abnormal MRCP, Suspected ascending cholangitis, Jaundice, Gallstone associated acute pancreatitis Medicines: See the Anesthesia note for documentation of the administered medications, General Anesthesia Complications: No immediate complications. Estimated Blood Loss: Estimated blood loss: none. Procedure: Pre-Anesthesia Assessment: - Prior to the procedure, a History and Physical was performed, and patient medications and allergies were reviewed. The patient is competent. The risks and benefits of the procedure and the sedation options and risks were discussed with the patient. All questions were answered and informed consent was obtained. Patient identification and proposed procedure were verified by the physician and the nurse in the procedure room. Mental Status Examination: alert and oriented. Airway Examination: normal oropharyngeal airway and neck mobility. Respiratory Examination: clear to auscultation. CV Examination: normal. ASA Grade Assessment: IV - A patient with severe systemic disease that is a constant threat to life. After reviewing the risks and benefits, the patient was deemed in satisfactory condition to undergo the procedure. The anesthesia plan was to use general anesthesia. Immediately prior to administration of medications, the patient was re-assessed for adequacy to receive sedatives. The heart rate, respiratory rate, oxygen saturations, blood pressure, adequacy of pulmonary ventilation, and response to care were monitored throughout the procedure. The physical status of the patient was re-assessed after the procedure. After obtaining informed consent, the scope was passed under direct vision. Throughout the procedure, the patient's blood pressure, pulse, and oxygen saturations were monitored continuously. The Scope was introduced through the mouth, and advanced to the duodenum and used to inject contrast into the bile duct. The ERCP was accomplished without difficulty. The patient tolerated the procedure well. Findings: The fire control assistant film was normal. The esophagus was successfully intubated under direct vision. The scope was advanced to a normal major papilla in the descending duodenum without detailed examination of the pharynx, larynx and associated structures, and upper GI tract. The upper GI tract was grossly normal. A 0.035 inch straight standard wire was passed into the biliary tree. The Fusion OMNI sphincterotome was passed over the guidewire and the bile duct was then deeply cannulated. Contrast was injected. I personally interpreted the bile duct images. There was brisk flow of contrast through the ducts. Image quality was excellent. Contrast extended to the main bile duct. Diffuse intrahepatic stenotic dissease noted likely related to diffuse liver metastasis. Opacification of the gallbladder was note and three large gallstones seen, size is >2 cm. Opacification of the main bile duct was successful. The maximum diameter of the ducts was 6 mm. No evidence of any stricture or filling defect. Biliary sphincterotomy was made with a monofilament traction (standard) sphincterotome using ERBE electrocautery. There was no post-sphincterotomy bleeding. The biliary tree was swept with an 8.5 mm balloon starting at the bifurcation. Sludge was swept from the duct. In view of her clinical picture and thick sludge, one 10 Fr by 9 cm plastic biliary stent with a single external flap and a single internal flap was placed into the common bile duct. Bile flowed through the stent. The stent was in good position. Indomethacin 100 mg was given via suppository to decrease the risk of post-ERCP pancreatitis (PEP). The total fluoroscopy exposure time was 4 minutes and 15 seconds. Impression: - Diffuse intrahepatic stenotic biliary disease related to underlying metastasis. The CBD was nondilated with no stricture or filling defects. - A biliary sphincterotomy was performed. - The biliary tree was swept and sludge was found. - In view of suspected cholangitis and sludge, one plastic biliary stent was placed into the common bile duct. Recommendation: - Return patient to [facility] for ongoing care. - Palliative consult, suggest comfort care. - Avoid aspirin and nonsteroidal anti-inflammatory medicines for 5 days. - Advance diet as tolerated. - Repeat ERCP in 3 - 6 months to remove stent if clinically stable, otherwise no repeat if patient is under palliative care. - Monitor LFTs. - Continue ABx. - Give FFP in view of coagulopathy to prevent post sphincterotomy bleed. Laura Espinoza MD 06/03/2019 4:34:12 PM This report has been signed electronically. Note Initiated On: 06/03/2019 1:53 PM Number of Addenda: 0 I attest to the content of the Intraoperative Record and orders documented therein, exceptions below {[id number]}
--- NOTE | 2019-06-03 16:35 | Fluoroscopy Report ---
INTRAOPERATIVE RADIOGRAPHS CLINICAL HISTORY: ERCP. Fluoroscopy time: 255 seconds. FINDINGS: 14 spot fluoroscopic views of the right upper quadrant from an ERCP procedure are correlate d with MRCP dated 06/02/2019. There is cannulation of the common bile duct. The common bile duct is no rmal in caliber and there is no evidence of choledocholithiasis. There is opacification of the cystic duct. There are large gallstones within the gallbladder lumen. A large stone is seen within the lu on of the gallbladder neck. There is no intrahepatic biliary ductal dilatation. There is narrowing of several intrahepatic branches, likely due to metastatic disease. The final images show a common bile duct stent being deployed. IMPRESSION: 1. Cholelithiasis. 2. There is no significant intra or extrahepatic biliary ductal dilatation. 3. There is no evidence of choledocholithiasis on the provided images. 4. See operative report for detailed findings. Electronically signed by: Yadiel Isbell M.D. 06/03/2019 4:34 PM
[2019-06-03] MEDS ORDERED: ALBUMIN 25% 50 ML IV ONE (17:50)
[2019-06-03] MEDS ORDERED: PHYTONADIONE 5 MG in SODIUM CHLORIDE 0.9% 50 ML IV ONE (18:00)
[2019-06-03 18:28] LABS: Hematocrit (blood only) 25.1 % (37-47); Mean Corpuscular Hgb Conc 27.9 g/dL (32-36); Mean Corpuscular Volume 91.6 fL (80-100); Mean Platelet Volume 9.8 fL (7.4-10.4); Nucleated RBC # (auto) 0.24 K/uL (0-0); Nucleated RBC % (auto) 0.7 %; Platelet Count 141 K/uL (130-400); RDW Coefficient of Variation 22.8 % (11.5-14.5); RDW Standard Deviation 75.7 fL (36.4-46.3); Red Blood Count 2.74 M/uL (4.2-5.4); White Blood Count 36.47 K/uL (4.8-10.8)
[2019-06-03] MEDS ORDERED: LORazepam 0.5 MG/1 ML VIAL IV PRN (19:07)
[2019-06-03] MEDS ORDERED: LACTULOSE SYRUP 20 GM/30 ML UDC PO STA (21:32)
[2019-06-04] MEDS: INSULIN ASPART 100 UNITS/ML 3 ML PEN SC SCH ×5 (00:10→21:40)
[2019-06-04] MEDS ORDERED: Nursing to Pharmacy Communication ONE (00:40)
[2019-06-04] MEDS: SODIUM CHLORIDE 0.9% 1000ML 1,000 ML IV SCH ×3 (01:44→17:35)
[2019-06-04] MEDS: PIPERACILLIN/TAZOBACTAM 3.375 GM in DEXTROSE 5% 100 ML IV SCH ×3 (01:47→17:36)
[2019-06-04] MEDS: HYDROmorphone INJ 1 MG/ML SYRINGE IV PRN (01:47)
[2019-06-04 04:24] LABS: Appearance Urine Cloudy (Clear); Blood Urine 3+ (Negative); Color Urine Dark Yellow; Glucose Urine UA Negative (Negative); Ketones Urine 1+ (Negative); Leukocyte Esterase Urine Negative (Negative); Nitrite Urine Negative (Negative); Protein Urine 2+ (Negative); Specific Gravity Urine 1.019 (1.000-1.030); Urobilinogen Urine Negative (Negative)
[2019-06-04 04:43] LABS: Bilirubin Urine 1+ (Negative); Ictotest Urine Positive (Negative)
[2019-06-04 04:47] LABS: RBC Urine Automated >30 /hpf (0-4)
[2019-06-04 04:48] LABS: Cast Urine Automated 0 /lpf (0-5)
[2019-06-04 04:51] LABS: Bacteria Urine Automated 1+ (Negative)
[2019-06-04 04:52] LABS: Amorphous Sediment Urine Present (None Prsent)
[2019-06-04 06:08] LABS: Hematocrit (blood only) 26.4 % (37-47); Hemoglobin 7.6 g/dL (12.0-16.0); Mean Corpuscular Hgb Conc 28.8 g/dL (32-36); Mean Corpuscular Volume 90.7 fL (80-100); Mean Platelet Volume 9.9 fL (7.4-10.4); Nucleated RBC # (auto) 0.22 K/uL (0-0); Nucleated RBC % (auto) 0.8 %; Platelet Count 119 K/uL (130-400); RDW Coefficient of Variation 20.9 % (11.5-14.5); RDW Standard Deviation 69.3 fL (36.4-46.3); Red Blood Count 2.91 M/uL (4.2-5.4)
[2019-06-04 06:21] LABS: Anisocytosis Present; Dohle Bodies 1+; Hypochromasia Present; Lymphocytes % (manual) 5.2 %; Metamyelocytes # (manual) 1.01 K/uL (0-0); Metamyelocytes % (manual) 3.5 %; Monocytes # (manual) 2.02 K/uL (0.11-0.59); Myelocytes % (manual) 5.2 %; Neutrophils % (manual) 79.1 %; Polychromasia 1+; Rouleaux 1+; Toxic Vacuolation 1+
[2019-06-04 06:31] LABS: INR 1.2 (0.9-1.1); Prothrombin Time 12.5 Seconds (9.0-12.0)
[2019-06-04 06:42] LABS: Albumin Globulin Ratio 0.5 (0.9-2); Albumin Level 2.2 gm/dl (3.4-5.0); BUN Creatinine Ratio 16.9 (10-20); Bilirubin,Total 6.3 mg/dl (0.2-1); Calcium 8.1 mg/dl (8.5-10.1); Creatinine Clr Calc Pharmacy 21.9 ml/min; Est GFR (African American) 25.5; Globulin 4.2 gm/dl (2.5-4.0); Potassium 4.1 mmol/L (3.5-5.1); Total Protein 6.4 gm/dl (6.4-8.2)
[2019-06-04] MEDS: FAMOTIDINE 20 MG in SYRINGE 3 ML IV SCH (08:40)
[2019-06-04] MEDS: ALBUMIN 25% 50 ML IV SCH ×6 (08:45→22:39)
--- NOTE | 2019-06-04 08:58 | Gastroenterology Progress Note ---
Date of Service June 04, 2019 Assessment & Plan (1) Colon cancer metastasized to lun53 year old female with metastatic colon CA admitted w/ leukocytosis, elevated LFTS, MRCP w/ gallstones, mass effect upon the common hepatic duct at the hepatic hilum, diffuse metastatic disease progressive from 04/22/2019. She is S/P ERCP w/ evidence of diffuse stenosis secondary to malignancy without CBD stricture/obstruction. There was sludge and given concern for cholangitis, plastic stent placed. - No GI contraindication to advancing diet as tolerated - No NSAIDs x 5 days - Would continue to monitor LFTs - Continue conservative therapy for now - IV fluid hydration - Anti-emetics PRN - Analgesia PRN - Continue Zosyn for GI coverage - ERCP for stent removal in 3-6 months - I did have a lengthy discussion with family at bedside, they are considering a palliative care/hospice consultation Will sign off. Thank you for allowing us to participate in the care of this patient. Please call with any acute changes, questions or concerns. Please see addendum below with additional recommendation from my supervising physician. (2) Elevated LFTs: Supervising Physician Co-Signing Physician Notes I have personally seen and examined the patient with AILYN Polanco. Her note reflects my exam and findings. I agree with her impression and plan. Much more alert today with only mild abdominal discomfort. Cont current care. Paul Gray M.D. Subjective Pt was seen and evaluated, chart reviewed. No acute events noted. S/P ERCP Feels better today More awake. Pain better controlled Tolerating clears this AM No nausea, vomiting. Passing gas, burping. Met w/ palliatve care Review of Systems Constitutional: no fever, no chills and no fatigue Respiratory: no cough, no dyspnea and no wheezing Cardiovascular: no chest pain, no radiating jaw, neck or arm pain and no claudication Gastrointestinal: no abdominal pain, no belching, no early satiety, no heartburn, no vomiting, no diarrhea/loose stools, no blood in stools and no melena Physical Exam Constitutional: + ill appearing and + thin; no acute distress Respiratory: normal respiratory effort; no respiratory distress Cardiovascular: Rate/Rhythm: regular rate and regular rhythm Gastrointestinal (Abdomen): Percussion/Palpation: + abdomen tender; no guarding and abdomen not rigid Skin: no rashes, warm and dry Results & Data Vital Signs (Past 12 Hours) Vital Signs Temp Pulse Pulse Resp BP BP Pulse Ox 06/04/19 07:11 36.9 C 89 17 119/77 99 06/04/19 03:26 92 H 06/04/19 01:22 36.0 C L 88 20 106/74 100 06/04/19 00:22 36.5 C 88 20 108/74 100 06/04/19 00:07 36.1 C L 100 H 17 106/73 100 06/03/19 23:52 36.4 C L 95 H 16 103/70 99 06/03/19 23:36 36.7 C 99 H 20 106/67 99 06/03/19 23:28 36.7 C 98 H 16 106/72 100 06/03/19 23:27 36.7 C 98 H 18 106/70 100 06/03/19 23:07 36.7 C 96 H 18 109/74 100 06/03/19 22:35 36.8 C 95 H 18 106/58 L 99 06/03/19 22:12 36.8 C 101 H 20 104/53 L 100 06/03/19 21:57 36.5 C 98 H 20 103/70 100 06/03/19 21:52 36.5 C 97 H 20 106/70 100 06/03/19 21:42 36.7 C 95 H 18 102/69 100 06/03/19 21:26 36.7 C 100 H 18 104/67 99
[2019-06-04] MEDS ORDERED: dexAMETHasone 2 MG in SYRINGE 0 ML IV SCH (09:00)
--- NOTE | 2019-06-04 09:56 | Progress Note ---
DATE: 06/04/2019 MEDICAL ONCOLOGY PROGRESS NOTE DIAGNOSES: 1. Acute pancreatitis. 2. Hypoalbuminemia. 3. Elevated liver transaminases. 4. Severe anemia. 5. Mild coagulopathy. 6. Acute renal injury. SUBJECTIVE: Stephanie is a very pleasant 53-year-old patient of Dr. Olguin's with history of diffusely metastatic colorectal cancer. She was seen at bedside this morning with her present. She is looking a little better mentally, a bit crisper today. She underwent ERCP and stenting yesterday. I was somewhat surprised that they had provided clear liquids for her this morning. She has diffuse abdominal tenderness, but otherwise no reported fever. is requesting to chat with Dr. Olguin regarding therapeutics moving forward. OBJECTIVE: GENERAL: The patient is in no acute distress. VITAL SIGNS: Temperature 36.9, pulse 89, respiratory rate 17, blood pressure 119/77. SKIN: Without rash or lesion. HEENT: Oral mucosa without erythema or ulceration. NECK: Supple. Trachea midline. HEART: Regular rate and rhythm. LUNGS: Clear to auscultation bilaterally. ABDOMEN: Again, diffusely tender mainly around the umbilicus. No rigidity or guarding. EXTREMITIES: 1+ peripheral edema bilaterally. NEUROLOGIC: Grossly intact. LABORATORY DATA: WBC count 28,900, hemoglobin 7.6, platelet count 119,000. Sodium 137, potassium 4.1, chloride 103, carbon dioxide 17, creatinine 2.40, BUN 41. AST 887, total bilirubin 6.3, ALT 101, alkaline phosphatase 1680, albumin 2.2. ERCP results; diffuse intrahepatic stenotic biliary disease related to underlying mets. Biliary sphincterotomy was performed. IMPRESSION: 1. Acute pancreatitis. 2. Hypoalbuminemia. 3. Elevated liver transaminases. 4. Severe anemia. 5. Mild coagulopathy. 6. Acute renal injury. PLAN: Stephanie is a very pleasant but unfortunate 53-year-old who suffers from progressing metastatic colorectal cancer. She underwent ERCP yesterday, diagnosed with biliary sludging and a biliary stent was subsequently placed. Her transaminases remain very elevated as well as bilirubin. Again, the patient's wants to engage with Dr. Olguin and recommended that [facility] to discuss plans moving forward. Clearly, she needs to recover from her current insult before any further chemotherapy would be administered. I have no issue with current medical management and again supplemental albumin would be appropriate and I believe it was given yesterday as there is a dramatic improvement in her albumin level. Again, if vitamin K has not been given, would definitely provide her at least a single dose of vitamin K and perhaps repeat the PT and INR as she recovers. I have nothing further to add and will continue to follow her periodically during her stay. LISA
--- NOTE | 2019-06-04 12:05 | Nephrology Consultation ---
Date of Consultation June 04, 2019 Assessment & Plan (1) ASHLEY (acute kidney injury): -- Abdominal CT at [facility] was negative for renal obstruction -- Patient is hypoalbuminemic and 3rd spacing volume into the abdomen and soft tissue of the legs -- Continue hydration w/ 0.9 NS at 100 cc/hr -- Will start albumin 25 g IV q 8 hrs -- Will check FeNa -- Poor prognosis due to widely metastatic colon CA. Discussed prognosis w/ patient and family. Patient is not a dialysis candidate. Patient and family understand and do not want heroic measures. They are considering hospice care (2) Anemia: -- Consider blood transfusion to maintain Hgb > 8.0 (3) Acute pancreatitis: -- Continue IV hydration / supportive care (4) Colon cancer metastasized to lung: -- Await Oncology input. Prognosis appears guarded. Patient considering hospice care History of Present Illness Reason for Consultation: ASHLEY Attending Physician: Jenny Johnson MD History of Present Illness Mrs. Almanzar is a 53 year old white female who is seen at the request of Dr. Johnson for evaluation of ASHLEY. Medical records in the EMR were reviewed today and are summarized as follows: Mrs. Almanzar has colon cancer. She underwent partial colectomy w/ colostomy formation but was later found to have metastasis to the brain, lung, liver and bone. Despite FOLFOX and bevacizumab therapy she has had progressive disease. Her last chemotherapy was ~ 3 weeks ago. Mrs. Almanzar presented to [facility] 06/02/19 for evaluation of diffuse abdominal pain. Noncontrast abdominal CT revealed widely metastatic disease, numerous gallstone and pancreatic inflammation. No hydronephrosis was reported. LFT's and lipase were markedly elevated. Mrs. Almanzar was transferred to [facility] for management of pancreatitis and follow up evaluation by Oncology. ERCP was completed yesterday. There was no obstructing stone. Patient had a biliary stent placed. Since admission creatinine has progressively risen from 0.7 to 2.4. She is nonoliguric. She has had no exposure to IV contrast or known nephrotoxic agents. Allergies Allergy/AdvReac Type Severity Reaction Status Date / Time peanut Allergy Intermediate Rash Verified 03/25/19 05:42 around the mouth aloe Allergy Mild RASH Verified 03/25/19 05:42 No Known Drug Allergies Allergy . Verified 03/25/19 05:42 cat dander AdvReac Mild SNEEZING, Verified 03/25/19 05:42 WATERY EYES Home Medications Home Medications Medication Instructions Recorded Confirmed Type 1 tab PO DAILY 01/24/19 03/25/19 History ferrous sulfate 325 mg PO DAILY 01/24/19 03/25/19 History dexamethasone 2 mg tablet 2 mg PO DAILY tab 04/05/19 04/05/19 History empagliflozin 10 mg tablet 10 mg PO DAILY 04/05/19 04/05/19 History Patient History Medical History History of chemotherapy (Acute) 06/03/15 - 03/15/16 - Folfox/Avastin 03/25/16 - 07/03/17 - Irinotecan/Cetuximab 10/2017 - 12/2018 - Lonsurf Anemia Anxiety Cancer Metastatic Colon CA w/ mets to lung, liver and brain (brain mets recently dx during [place] [facility] visit 01/2019 for stroke like symptoms 2/2 UTI per pt report) - has since received radiation treatment and steroid taper for brain mets Depression NO MEDICATIONS History of recent steroid use steroid taper for brain mets Neutropenia RECENTLY LABS 01/13/19 Recent urinary tract infection RESOLVED Temporomandibular joint disorder "JUST GRIND TEETH" Surgical History History of bowel resection 2014 History of colonoscopy 2014 History of colostomy 05/11/15 History of mandibular surgery 1993 - PALATE EXPANSION AND "PULLED LOWER JAW FORWARD WITH PLATES AND SCREWS" History of removal of Port-a-Cath 2016 History of vascular access device 2015 A-port placement Family History Mother No problems noted. Father , Passed age 60 in MVA No problems noted. Uncle , Maternal - Passed in 60's of Lung CA No problems noted. Brother No problems noted. Sister No problems noted. Sister No problems noted. Sister No problems noted. Daughter No problems noted. Daughter No problems noted. Son No problems noted. Social History Preferred Language: [place] Communication Ability: Effective Visual Impairment: Limited Hearing Ability: Normal Beliefs That Will Affect Care: Anabaptist Anabaptist Beliefs: GNOSTICISM marital status: Current Living Situation: Spouse current occupational status: disabled current occupation: Worked for [employer] Other Information That Helps Us Care for You: No Feels Safe at Home: Yes Safety Concerns: Feels Safe At This Time Smoking Status: Former smoker Tobacco Type: cigarettes Second Hand Exposure: No Hx Alcohol Use: No Hx Substance Use: No caffeine: Yes (Iced tea daily ) during the past year weight has: remained stable Review of Systems Constitutional: + weakness; no fever Respiratory: no dyspnea Cardiovascular: + edema; no chest pain Gastrointestinal: + abdominal pain; no vomiting and no diarrhea/loose stools Physical Exam Constitutional: + cachectic and + frail appearing Eyes: PERRL (+ scleral icterus) ENMT: Mouth: + dry oral mucous membranes Neck: trachea midline, no thyromegaly Respiratory: normal respiratory effort, lungs clear to auscultation no respiratory distress Cardiovascular: Rate/Rhythm: regular rate and regular rhythm Extremities: + edema (2+ pretibial pitting edema) Gastrointestinal (Abdomen): Inspection/Auscultation: + hypoactive bowel sounds Percussion/Palpation: + abdomen tender and abdomen soft Neurologic: awake and + confused Results & Data Vital Signs (Past 12 Hours) Vital Signs Temp Pulse Pulse Resp BP BP Pulse Ox 06/04/19 11:20 36.8 C 89 18 99/77 L 100 06/04/19 07:11 36.9 C 89 17 119/77 99 06/04/19 03:26 92 H 06/04/19 01:22 36.0 C L 88 20 106/74 100 06/04/19 00:22 36.5 C 88 20 108/74 100 06/04/19 00:07 36.1 C L 100 H 17 106/73 100 Laboratory Results Laboratory Tests 06/04/19 06/04/19 06/04/19 04:10 05:34 05:34 WBC 28.90 H Hgb 7.6 L Hct 26.4 L Plt Count 119 L Sodium 137 Potassium 4.1 Chloride 103 Carbon Dioxide 17 L BUN 41 H Creatinine 2.40 H D Glucose 115 H Calcium 8.1 L Total Bilirubin 6.3 H AST 887 H ALT 101 H Alkaline Phosphatase 1680 H Ammonia Albumin 2.2 L Lipase 1762 H Urine Color Dark Yellow Urine Appearance Cloudy A Urine pH 5.0 Ur Specific [place] 1.019 Urine Protein 2+ H Urine Glucose (UA) Negative Urine Ketones 1+ H Urine Blood 3+ H Urine Nitrite Negative Urine WBC (Auto) 1-5 Urine RBC (Auto) >30 H U Epithel Cells (Auto) 10-20 H 06/04/19 05:36 WBC Hgb Hct Plt Count Sodium Potassium Chloride Carbon Dioxide BUN Creatinine Glucose Calcium Total Bilirubin AST ALT Alkaline Phosphatase Ammonia 47.7 H Albumin Lipase Urine Color Urine Appearance Urine pH Ur Specific [place] Urine Protein Urine Glucose (UA) Urine Ketones Urine Blood Urine Nitrite Urine WBC (Auto) Urine RBC (Auto) U Epithel Cells (Auto)
[2019-06-04 13:32] LABS: Creatinine Urine Random 36.5 mg/dl
--- NOTE | 2019-06-04 14:39 | Hospitalist Progress Note ---
Date of Service June 04, 2019 Assessment & Plan (1) Acute pancreatitis: Progressive pain for a week, secondary to mets to the liver WBC clovis to 39k and now back down to 28k LFTs remain in an obstructive pattern secondary to multiple liver mets, TBili up to 6 today but AST, ALT, Alk phos minimally decreased lipase was 6[address] [facility] [address] showed evidence of pancreatitis, lipase has trended downward to 1700 Concerns for gall stone pancreatitis due to elevated LFT MRCP showed no CBD dilatation but possible obstruction of common hepatic duct [facility] eval appreciated--> ERCP on 06/03 showed biliary sludge but no obstruction. Had plastic CBD stent placed after sphincterotomy just in case was an obstruction GI thinks LFTs and lipase elevated due to grossly metastatic disease to the liver Not much else can be done for her at this point other than chemotherapy for her liver mets, however she is not in a condition to be able to withstand more chemotherapy -continue to advance diet as tolerated as per GI-continue clears for now -continue IVFs but decrease to 75 mLs/hr NS -now on albumin 25 gm IV q8h -continue pain control but dc IV dilaudid and change to po Roxanol prn -follow LFTs in AM--> if not improving, recommend moving towards comfort care. She would not tolerate any further chemotherapy and her and children want to pursue comfort care -continue Zosyn to cover for possible cholangitis/cholecystitis for now -continue IV Pepcid (2) Elevated LFTs: Tbili is up to 6.3, ALK phos slightly down to 1680, ALT 100 and AST down to 887 certainly bone mets likely contributing to higher elevation in Alk phos in addition to liver mets CBD stent placed 06/03/19 If pursues comfort care, no need to remove stent. If improves/survives, would need stent removed in 3-6 months -as above -follow LFTs (3) ASHLEY (acute kidney injury): Unsure of baseline warehouse handler but continues to rise again today --> now up to 2.4 Could be hepatorenal syndrome and at this point would be type 2 Is non-oliguric Ur Na+ is 55 which argues against hepatorenal syndrome UA with some proteinuria -continue IVFs and IV albumin as above -appreciate Nephrology consultation--> she would not be a dialysis candidate and family/pt aware -follow UOP -follow BMP in AM -avoid nephrotoxins, renally dose meds (4) Colon cancer metastasized to brain: was on Decadron po at home but had stopped as could not tolerate it Last dose of chemotherapy was end of April - continue IV Decadron 2mg once daily -Oncology consult appreciated -Palliative care consult appreciated--> plan is for going home with Hospice although pt's does want to talk to Dr. Olguin tomorrow about the plan (5) Anemia: Hgb dropped down to 7.0 and now up to 7.6 with 1 unit PRBCs transfused on 06/03. Fe studies show chronic disease pattern, B12 and folate normal With coagulopathy as well and some oozing during ERCP reported -no transfusion today -follow CBC in AM (6) Colon cancer metastasized to bone: new finding for pain, it is in spine pain control with Roxanol prn -consider Palliative XRT (7) Colon cancer metastasized to lung: noted, is now on O2 (8) DM type 2 (diabetes mellitus, type 2): Novolog SS provided (9) Gallstones: seen on MRCP, non-obstructing on MRCP and ERCP Appreciate Surgery Consult-no surgical need here given comorbidities unless was emergent (10) Pain, abdominal: -secondary to metastatic colon CA -convert to po Roxanol for pain Palliative Care consulted (11) Dysphagia: noted complaint of dysphagia worsening could be due to PICKING TECH mets, abd pain, opioids -Speech eval for dietary recommendations appreciated and she is doing better now at least with liquids--> no further DIRECTOR ECONOMIC recommendations (12) Hypoalbuminemia: severe, albumin only 1.3, secondary to liver dysfunction and metastatic CA Albumin now increased to 2.2 with IV albumin She is having some LE edema now -continue IV albumin q8 -follow albumin in AM (13) Coagulopathy: INR 1.5, secondary to liver dysfunction and not likely to improve unless chemotherapy is effective and shrinking liver mets INR improved today to 1.2 now s/p Vit K on 06/03 and received FFP -follow INR (14) Leukocytosis: secondary to infection/cholangitis vs steroid effect vs stress response WBC count was up to 39k after ERCP, now improving -follow CBC (15) UTI (urinary tract infection): possible UTI bacteria in UA, told by patient that often she only has bacteria and no WBC with UTI will be on Zosyn, follow up urine culture from [facility] (16) DVT prophylaxis: Holding Lovenox due to oozing of blood from ERCP, can likely start tomorrow SCDs Dispo-remain on PCU CM assistance with Hospice referral appreciated Possible dc to home with Hospice in the next 2 days Subjective Pt denies pain and has not taken anything for pain since last night. She is still confused at times-when I ask her where she is, she starts telling me about "this thing connecting things here" as she points to her RUQ in reference to her CBD stent. She is tolerating clear liquids but says it is making her feel full. Denies CP or SOB. Discussed her care again later in the day with her , sister, and mother at the bedside. All are in agreement to get the pt home with Hospice as soon as possible, but still wants her to have labs in the morning to see which direction her liver and kidney function are trending. Tele with RANDY, rates in the 80s I discussed her care with Palliative Care also is awaiting to have a discussion with Dr. Olguin regarding her care Pt is eager to try to get out of bed to a chair and says she wants to walk again. Also becomes tearful and says she wants to ride her horse again some day. Review of Systems Review of Systems: All systems reviewed & are unremarkable except as noted in HPI & below Physical Exam Constitutional: WD/WN, vitals as above + ill appearing and + thin; no acute distress Eyes: + scleral abnormality (icterus) Neck: trachea midline, no thyromegaly Respiratory: normal respiratory effort, lungs clear to auscultation Cardiovascular: Rate/Rhythm: regular rate and regular rhythm Heart Sounds: no murmur Extremities: + edema (1+ nonpitting edema of the legs bilat) Chest (Breasts): Chest: + vascular access device or port (left anterior chest wall) Gastrointestinal (Abdomen): Inspection/Auscultation: normal bowel sounds; + abdomen abnormal to inspection (ostomy bag LLQ with gas and small amount green stool) Percussion/Palpation: + abdomen tender (diffusely but moreso in RUQ), + hepatomegaly and + abdominal mass (multiple palpable masses right side abdomen); no hernia Musculoskeletal: Extremities: extremities normal to inspection; no cyanosis and no clubbing Skin: no rashes, warm and dry Neurologic: moves all extremities and awake; no focal motor deficits Psychiatric: Orientation: alert, oriented to person, oriented to time (only to the year and month) and cooperative; + not oriented to place Genitourinary: Wagner catheter in place Results & Data Vital Signs (Past 12 Hours) Vital Signs Temp Pulse Pulse Resp BP Pulse Ox 06/04/19 11:20 36.8 C 89 18 99/77 L 100 06/04/19 07:11 36.9 C 89 17 119/77 99 06/04/19 03:26 92 H Laboratory Results 06/04/19 06/04/19 06/04/19 Range/Units Unknown Unknown 21:02 WBC (4.8-10.8) K/uL RBC (4.2-5.4) M/uL Hgb (12.0-16.0) g/dL Hct (37-47) % MCV (80-100) fL MCH (25-34) pg MCHC (32-36) g/dL RDW Std Deviation (36.4-46.3) fL RDW Coeff of Sully (11.5-14.5) % Plt Count (130-400) K/uL MPV (7.4-10.4) fL Absolute Nucleated RBC (0-0) K/uL Nucleated RBC % (auto) % Neutrophils % (Manual) % Lymphocytes % (Manual) % Monocytes % (Manual) % Metamyelocytes % (Man) % Myelocytes % (Man) % Neutrophils # (Manual) (1.4-6.5) K/uL Total Absolute Neuts (1.4-6.5) K/uL Lymphocytes # (Manual) (1.2-3.4) K/uL Total Abs Lymphocytes (1.2-3.4) K/uL Monocytes # (Manual) (0.11-0.59) K/uL Metamyelocytes # (Man) (0-0) K/uL Myelocytes # (Manual) (0-0) K/uL Toxic Vacuolation Dohle Bodies Polychromasia Hypochromasia Anisocytosis Rouleaux PT (9.0-12.0) Seconds INR (0.9-1.1) Sodium (136-145) mmol/L Potassium (3.5-5.1) mmol/L Chloride (98-107) mmol/L Carbon Dioxide (21-32) mmol/L Anion Gap (3-11) BUN (7-18) mg/dl Creatinine (0.6-1.2) mg/dl Est Cr Clr Drug Dosing ml/min Est GFR ( Amer) Est GFR (Non-Af Amer) BUN/Creatinine Ratio (10-20) Glucose (70-99) mg/dl POC Glucose 125 H (70-99) Calcium (8.5-10.1) mg/dl Total Bilirubin (0.2-1) mg/dl AST (15-37) U/L ALT (12-78) U/L Alkaline Phosphatase (45-117) U/L Ammonia (11-32) umol/L Total Protein (6.4-8.2) gm/dl Albumin (3.4-5.0) gm/dl Globulin (2.5-4.0) gm/dl Albumin/Globulin Ratio (0.9-2) Lipase (73-393) U/L Urine Color Urine Appearance (Clear) Urine pH (4.5-7.5) Ur Specific [place] (1.000-1.030) Urine Protein (Negative) Urine Glucose (UA) (Negative) Urine Ketones (Negative) Urine Blood (Negative) Urine Nitrite (Negative) Urine Bilirubin (Negative) Urine Urobilinogen (Negative) Ur Leukocyte Esterase (Negative) Urine WBC (Auto) (0-5) /hpf Urine RBC (Auto) (0-4) /hpf U Hyaline Cast (Auto) (0-5) /lpf U Epithel Cells (Auto) (0-5) /lpf Urine Bacteria (Auto) (Negative) Amorphous Sediment (None Prsent) Urine Yeast Ur Random Creatinine 36.5 mg/dl Ur Random Sodium Cancelled 50 mmol/L Blood Type Antibody Screen Crossmatch 06/04/19 06/04/19 06/04/19 Range/Units 16:33 11:02 05:36 WBC (4.8-10.8) K/uL RBC (4.2-5.4) M/uL Hgb (12.0-16.0) g/dL Hct (37-47) % MCV (80-100) fL MCH (25-34) pg MCHC (32-36) g/dL RDW Std Deviation (36.4-46.3) fL RDW Coeff of Sully (11.5-14.5) % Plt Count (130-400) K/uL MPV (7.4-10.4) fL Absolute Nucleated RBC (0-0) K/uL Nucleated RBC % (auto) % Neutrophils % (Manual) % Lymphocytes % (Manual) % Monocytes % (Manual) % Metamyelocytes % (Man) % Myelocytes % (Man) % Neutrophils # (Manual) (1.4-6.5) K/uL Total Absolute Neuts (1.4-6.5) K/uL Lymphocytes # (Manual) (1.2-3.4) K/uL Total Abs Lymphocytes (1.2-3.4) K/uL Monocytes # (Manual) (0.11-0.59) K/uL Metamyelocytes # (Man) (0-0) K/uL Myelocytes # (Manual) (0-0) K/uL Toxic Vacuolation Dohle Bodies Polychromasia Hypochromasia Anisocytosis Rouleaux PT (9.0-12.0) Seconds INR (0.9-1.1) Sodium (136-145) mmol/L Potassium (3.5-5.1) mmol/L Chloride (98-107) mmol/L Carbon Dioxide (21-32) mmol/L Anion Gap (3-11) BUN (7-18) mg/dl Creatinine (0.6-1.2) mg/dl Est Cr Clr Drug Dosing ml/min Est GFR ( Amer) Est GFR (Non-Af Amer) BUN/Creatinine Ratio (10-20) Glucose (70-99) mg/dl POC Glucose 214 H 159 H (70-99) Calcium (8.5-10.1) mg/dl Total Bilirubin (0.2-1) mg/dl AST (15-37) U/L ALT (12-78) U/L Alkaline Phosphatase (45-117) U/L Ammonia 47.7 H (11-32) umol/L Total Protein (6.4-8.2) gm/dl Albumin (3.4-5.0) gm/dl Globulin (2.5-4.0) gm/dl Albumin/Globulin Ratio (0.9-2) Lipase (73-393) U/L Urine Color Urine Appearance (Clear) Urine pH (4.5-7.5) Ur Specific [place] (1.000-1.030) Urine Protein (Negative) Urine Glucose (UA) (Negative) Urine Ketones (Negative) Urine Blood (Negative) Urine Nitrite (Negative) Urine Bilirubin (Negative) Urine Urobilinogen (Negative) Ur Leukocyte Esterase (Negative) Urine WBC (Auto) (0-5) /hpf Urine RBC (Auto) (0-4) /hpf U Hyaline Cast (Auto) (0-5) /lpf U Epithel Cells (Auto) (0-5) /lpf Urine Bacteria (Auto) (Negative) Amorphous Sediment (None Prsent) Urine Yeast Ur Random Creatinine mg/dl Ur Random Sodium mmol/L Blood Type Antibody Screen Crossmatch 06/04/19 06/04/19 06/04/19 Range/Units 05:34 05:34 05:34 WBC 28.90 H (4.8-10.8) K/uL RBC 2.91 L (4.2-5.4) M/uL Hgb 7.6 L (12.0-16.0) g/dL Hct 26.4 L (37-47) % MCV 90.7 (80-100) fL MCH 26.1 (25-34) pg MCHC 28.8 L (32-36) g/dL RDW Std Deviation 69.3 H (36.4-46.3) fL RDW Coeff of Sully 20.9 H (11.5-14.5) % Plt Count 119 L (130-400) K/uL MPV 9.9 (7.4-10.4) fL Absolute Nucleated RBC 0.22 H (0-0) K/uL Nucleated RBC % (auto) 0.8 % Neutrophils % (Manual) 79.1 % Lymphocytes % (Manual) 5.2 % Monocytes % (Manual) 7.0 % Metamyelocytes % (Man) 3.5 % Myelocytes % (Man) 5.2 % Neutrophils # (Manual) 22.86 H (1.4-6.5) K/uL Total Absolute Neuts 22.86 H (1.4-6.5) K/uL Lymphocytes # (Manual) 1.50 (1.2-3.4) K/uL Total Abs Lymphocytes 1.50 (1.2-3.4) K/uL Monocytes # (Manual) 2.02 H (0.11-0.59) K/uL Metamyelocytes # (Man) 1.01 H (0-0) K/uL Myelocytes # (Manual) 1.50 H (0-0) K/uL Toxic Vacuolation 1+ Dohle Bodies 1+ Polychromasia 1+ Hypochromasia Present Anisocytosis Present Rouleaux 1+ PT 12.5 H (9.0-12.0) Seconds INR 1.2 H (0.9-1.1) Sodium 137 (136-145) mmol/L Potassium 4.1 (3.5-5.1) mmol/L Chloride 103 (98-107) mmol/L Carbon Dioxide 17 L (21-32) mmol/L Anion Gap 17.0 H (3-11) BUN 41 H (7-18) mg/dl Creatinine 2.40 H D (0.6-1.2) mg/dl Est Cr Clr Drug Dosing 21.9 ml/min Est GFR ( Amer) 25.5 Est GFR (Non-Af Amer) 22.0 BUN/Creatinine Ratio 16.9 (10-20) Glucose 115 H (70-99) mg/dl POC Glucose (70-99) Calcium 8.1 L (8.5-10.1) mg/dl Total Bilirubin 6.3 H (0.2-1) mg/dl AST 887 H (15-37) U/L ALT 101 H (12-78) U/L Alkaline Phosphatase 1680 H (45-117) U/L Ammonia (11-32) umol/L Total Protein 6.4 (6.4-8.2) gm/dl Albumin 2.2 L (3.4-5.0) gm/dl Globulin 4.2 H (2.5-4.0) gm/dl Albumin/Globulin Ratio 0.5 L (0.9-2) Lipase 1762 H (73-393) U/L Urine Color Urine Appearance (Clear) Urine pH (4.5-7.5) Ur Specific [place] (1.000-1.030) Urine Protein (Negative) Urine Glucose (UA) (Negative) Urine Ketones (Negative) Urine Blood (Negative) Urine Nitrite (Negative) Urine Bilirubin (Negative) Urine Urobilinogen (Negative) Ur Leukocyte Esterase (Negative) Urine WBC (Auto) (0-5) /hpf Urine RBC (Auto) (0-4) /hpf U Hyaline Cast (Auto) (0-5) /lpf U Epithel Cells (Auto) (0-5) /lpf Urine Bacteria (Auto) (Negative) Amorphous Sediment (None Prsent) Urine Yeast Ur Random Creatinine mg/dl Ur Random Sodium mmol/L Blood Type Antibody Screen Crossmatch 06/04/19 06/04/19 06/03/19 Range/Units 04:10 04:10 23:59 WBC (4.8-10.8) K/uL RBC (4.2-5.4) M/uL Hgb (12.0-16.0) g/dL Hct (37-47) % MCV (80-100) fL MCH (25-34) pg MCHC (32-36) g/dL RDW Std Deviation (36.4-46.3) fL RDW Coeff of Sully (11.5-14.5) % Plt Count (130-400) K/uL MPV (7.4-10.4) fL Absolute Nucleated RBC (0-0) K/uL Nucleated RBC % (auto) % Neutrophils % (Manual) % Lymphocytes % (Manual) % Monocytes % (Manual) % Metamyelocytes % (Man) % Myelocytes % (Man) % Neutrophils # (Manual) (1.4-6.5) K/uL Total Absolute Neuts (1.4-6.5) K/uL Lymphocytes # (Manual) (1.2-3.4) K/uL Total Abs Lymphocytes (1.2-3.4) K/uL Monocytes # (Manual) (0.11-0.59) K/uL Metamyelocytes # (Man) (0-0) K/uL Myelocytes # (Manual) (0-0) K/uL Toxic Vacuolation Dohle Bodies Polychromasia Hypochromasia Anisocytosis Rouleaux PT (9.0-12.0) Seconds INR (0.9-1.1) Sodium (136-145) mmol/L Potassium (3.5-5.1) mmol/L Chloride (98-107) mmol/L Carbon Dioxide (21-32) mmol/L Anion Gap (3-11) BUN (7-18) mg/dl Creatinine (0.6-1.2) mg/dl Est Cr Clr Drug Dosing ml/min Est GFR ( Amer) Est GFR (Non-Af Amer) BUN/Creatinine Ratio (10-20) Glucose (70-99) mg/dl POC Glucose 145 H (70-99) Calcium (8.5-10.1) mg/dl Total Bilirubin (0.2-1) mg/dl AST (15-37) U/L ALT (12-78) U/L Alkaline Phosphatase (45-117) U/L Ammonia (11-32) umol/L Total Protein (6.4-8.2) gm/dl Albumin (3.4-5.0) gm/dl Globulin (2.5-4.0) gm/dl Albumin/Globulin Ratio (0.9-2) Lipase (73-393) U/L Urine Color Dark Yellow Urine Appearance Cloudy A (Clear) Urine pH 5.0 (4.5-7.5) Ur Specific [place] 1.019 (1.000-1.030) Urine Protein 2+ H (Negative) Urine Glucose (UA) Negative (Negative) Urine Ketones 1+ H (Negative) Urine Blood 3+ H (Negative) Urine Nitrite Negative (Negative) Urine Bilirubin 1+ H (Negative) Urine Urobilinogen Negative (Negative) Ur Leukocyte Esterase Negative (Negative) Urine WBC (Auto) 1-5 (0-5) /hpf Urine RBC (Auto) >30 H (0-4) /hpf U Hyaline Cast (Auto) 0 (0-5) /lpf U Epithel Cells (Auto) 10-20 H (0-5) /lpf Urine Bacteria (Auto) 1+ H (Negative) Amorphous Sediment Present A (None Prsent) Urine Yeast Not Reportable Ur Random Creatinine mg/dl Ur Random Sodium 55 mmol/L Blood Type Antibody Screen Crossmatch 06/03/19 Range/Units 17:40 WBC (4.8-10.8) K/uL RBC (4.2-5.4) M/uL Hgb (12.0-16.0) g/dL Hct (37-47) % MCV (80-100) fL MCH (25-34) pg MCHC (32-36) g/dL RDW Std Deviation (36.4-46.3) fL RDW Coeff of Sully (11.5-14.5) % Plt Count (130-400) K/uL MPV (7.4-10.4) fL Absolute Nucleated RBC (0-0) K/uL Nucleated RBC % (auto) % Neutrophils % (Manual) % Lymphocytes % (Manual) % Monocytes % (Manual) % Metamyelocytes % (Man) % Myelocytes % (Man) % Neutrophils # (Manual) (1.4-6.5) K/uL Total Absolute Neuts (1.4-6.5) K/uL Lymphocytes # (Manual) (1.2-3.4) K/uL Total Abs Lymphocytes (1.2-3.4) K/uL Monocytes # (Manual) (0.11-0.59) K/uL Metamyelocytes # (Man) (0-0) K/uL Myelocytes # (Manual) (0-0) K/uL Toxic Vacuolation Dohle Bodies Polychromasia Hypochromasia Anisocytosis Rouleaux PT (9.0-12.0) Seconds INR (0.9-1.1) Sodium (136-145) mmol/L Potassium (3.5-5.1) mmol/L Chloride (98-107) mmol/L Carbon Dioxide (21-32) mmol/L Anion Gap (3-11) BUN (7-18) mg/dl Creatinine (0.6-1.2) mg/dl Est Cr Clr Drug Dosing ml/min Est GFR ( Amer) Est GFR (Non-Af Amer) BUN/Creatinine Ratio (10-20) Glucose (70-99) mg/dl POC Glucose (70-99) Calcium (8.5-10.1) mg/dl Total Bilirubin (0.2-1) mg/dl AST (15-37) U/L ALT (12-78) U/L Alkaline Phosphatase (45-117) U/L Ammonia (11-32) umol/L Total Protein (6.4-8.2) gm/dl Albumin (3.4-5.0) gm/dl Globulin (2.5-4.0) gm/dl Albumin/Globulin Ratio (0.9-2) Lipase (73-393) U/L Urine Color Urine Appearance (Clear) Urine pH (4.5-7.5) Ur Specific [place] (1.000-1.030) Urine Protein (Negative) Urine Glucose (UA) (Negative) Urine Ketones (Negative) Urine Blood (Negative) Urine Nitrite (Negative) Urine Bilirubin (Negative) Urine Urobilinogen (Negative) Ur Leukocyte Esterase (Negative) Urine WBC (Auto) (0-5) /hpf Urine RBC (Auto) (0-4) /hpf U Hyaline Cast (Auto) (0-5) /lpf U Epithel Cells (Auto) (0-5) /lpf Urine Bacteria (Auto) (Negative) Amorphous Sediment (None Prsent) Urine Yeast Ur Random Creatinine mg/dl Ur Random Sodium mmol/L Blood Type O Positive Antibody Screen NEGATIVE Crossmatch See Detail PG Care Time/CCT Total # of Minutes Spent Total Time Spent with Patient: Total time spent is greater than 50% in coordination of care (as documented) at patient's floor/unit and/or counseling patient:
[2019-06-04] MEDS ORDERED: MoRPHine SULFATE 10 MG/0.5 ML UDP PO PRN (15:09)
[2019-06-04] MEDS ORDERED: MoRPHine SULFATE 5 MG/0.25 ML UDP PO PRN (15:09)
--- NOTE | 2019-06-04 16:33 | Palliative Care Progress Note ---
Date of Service June 04, 2019 Assessment & Plan (1) Palliative care encounter: Patient is a 53-year-old female with a diagnosis of stage IV metastatic colon cancer-diagnosed in 2014. Patient presented to the hospital on 06/02 with severe abdominal pain-patient was initially seen at [facility], CT scan showed multiple gallstones-no evidence for cholecystitis. Patient also had a lung lesions-largest 1.8 cm in the left lower lobe, multiple liver mets, pancreatic head enlargement, new spinal mets, masslike thickening of the sigmoid colon-2.3 x 3.7 cm as well as her ostomy in the left midabdomen. Patient was sent to [facility] from [facility] for further evaluation and treatment of her g allstones. Patient had an MRI done here-which showed increased in her liver mets compared to her scan on 04/22 in addition to similar findings from the CT scan from [facility]. . Patient was diagnosed with stage IV metastatic colon cancer in 2014-mets to bone, lung, liver and brain. Patient has received multiple chemotherapy regimes-has had disease progression-her last chemo was the end of April. Patient was found to have brain mets on MRI in January of this year when she presented with diplopia, facial droop and foot drop-patient received XRT and completed that in February of this year-all her neuro symptoms resolved. Family reports some increased confusion-Partly due to elevated ammonia level as well as bilirubin, status of brain mets unknown. Of note-patient reports dysphasia which started approximately a week ago-this is for liquids as well as solids. Patient was to have a follow-up brain MRI in May-will need to see if this is already scheduled.. Abdominal pain-markedly improved status post ERCP with stent placement-Patient only required 1 as needed IV Dilaudid since surgery yesterday -Stage IV metastatic colon cancer-last chemo the end of April-scan shows disease progression-further treatment per oncology -Cancer related pain-primarily some worsening low back pain-patient has been doing well with PRN Motrin or PRN Tylenol. Recent abdominal pain-likely related to gallstones -Abdominal pain-large gallstones with evidence of pancreatitis-Status post ERCP with stent, continue PRN IV Dilaudid -Widely metastatic disease-with mets to lung, liver, brain and bone-patient on Decadron twice daily, continue pain control - Plan to speak with regarding hospice referral -Dysphasia-new onset-dysphasia for liquids as well as solids. Will defer further work-up to attending team. Will continue to follow and assist family with medical decision making and Discussed returning home with hospice care with when he returns (2) Pain, abdominal: Improved status post ERCP with stent-continue PRN IV Dilaudid (3) Colon cancer metastasized to lung: (4) Colon cancer metastasized to bone: (5) Colon cancer metastasized to brain: (6) Dysphasia: Subjective Patient awake, confused, no acute distress. Patient's not at bedside- had to emergently transport daughter to [facility] Review of Systems Review of Systems: Unobtainable due to cognitive status Physical Exam Physical Exam: PE: No acute distress, confused HEENT: EOMI, sclera less icteric, hearing within normal limits Respiratory: Clear breath sounds, unlabored CV: Regular rate, 1+ lower extremity edema Abdomen: Soft, mild tenderness on palpation, ostomy in place and functioning Neuro: Confused Results & Data Vital Signs (Past 12 Hours) Vital Signs Temp Pulse Pulse Resp BP BP Pulse Ox 06/04/19 15:46 97.9 F 97 H 16 130/84 98 06/04/19 11:20 98.2 F 89 18 99/77 L 100 06/04/19 07:11 98.4 F 89 17 119/77 99 PG Care Time/CCT Total # of Minutes Spent Total Time Spent with Patient: Total time spent is greater than 50% in coordination of care (as documented) at patient's floor/unit and/or counseling patient: Time Spent Attending Total time spent 25 minutes with greater than 50% of time spent at bedside assessing patient's level of comfort as well as collaborating with attending physician
[2019-06-05] MEDS: PIPERACILLIN/TAZOBACTAM 3.375 GM in DEXTROSE 5% 100 ML IV SCH ×2 (02:32→14:48)
[2019-06-05] MEDS: ALBUMIN 25% 50 ML IV SCH ×4 (05:53→15:00)
[2019-06-05] MEDS: SODIUM CHLORIDE 0.9% 1000ML 1,000 ML IV SCH ×2 (05:56→23:23)
[2019-06-05 06:10] LABS: INR 1.3 (0.9-1.1); Prothrombin Time 13.5 Seconds (9.0-12.0)
--- NOTE | 2019-06-05 06:34 | Progress Note ---
Date of Service June 05, 2019 Subjective Notified by nursing that patient was seizing in her bed at about 6am. Jerking of extremities, right more than left acc to nursing, lasted 2 min approximately and is now resolved. I went to the bedside to assess. Pt is able to open her eyes to voice, can move her fingers and toes to command in the RUE and RLE but is considerably weaker on the LUE and LLE. Her mouth is agape, she is breathing spontaneously, very drowsy. Remains on 2L which is her baseline here. I suspect generalized myoclonic type seizure, lasting 2 min and self resolved. I suspect she is now post ictal. This may be her first seizure since mets to the brain were diagnosed. I ordered seizure precautions and assessments to be performed by nursing. I will place a nonurgent consult for neurology. I am also increasing decadron from 2mg daily to 4mg BID at this time. Primary team to discuss with neurology for steps moving forward regarding medical management. Results & Data Vital Signs (Past 12 Hours) Vital Signs Temp Pulse Pulse Pulse Resp BP Pulse Ox 06/05/19 04:00 95 H 14 100 06/05/19 00:00 92 H 06/04/19 23:00 36.5 C 91 H 20 135/80 96 06/04/19 21:00 36.7 C 94 H 24 126/78 99 Resident Activity Tracking Resident Involvement: Resident Care Provided Care Provided: Adult Hospital Medicine
[2019-06-05 06:43] LABS: Albumin Level 2.3 gm/dl (3.4-5.0); BUN Creatinine Ratio 14.6 (10-20); Calcium 8.7 mg/dl (8.5-10.1); Creatinine Clr Calc Pharmacy 18.5 ml/min; Est GFR (African American) 20.8; Est GFR (Non-African American) 17.9; Potassium 3.6 mmol/L (3.5-5.1)
[2019-06-05 06:58] LABS: Albumin Globulin Ratio 0.7 (0.9-2); Bilirubin,Total 6.8 mg/dl (0.2-1); Globulin 3.3 gm/dl (2.5-4.0); Total Protein 5.6 gm/dl (6.4-8.2)
[2019-06-05] MEDS ORDERED: dexAMETHasone 4 MG in SYRINGE 0 ML IV SCH (07:00)
--- NOTE | 2019-06-05 08:16 | Neurology Consultation ---
Date of Consultation June 05, 2019 Assessment & Plan (1) New onset seizure: Patient had a new onset complex partial seizure earlier this morning likely secondary to her brain metastases plus multiple metabolic issues including abnormal liver enzymes and function and elevated lipase. Elevated BUN and creatinine is noted as well but she has no obvious electrolyte imbalances. She had a history of sepsis is currently afebrile and on antibiotics. She was taking low-dose Decadron because of the brain metastases in his was increase this morning after the seizure. Currently, she has post ictal encephalopathy on the background of some ongoing encephalopathy from her brain Mets. She has some left-sided weakness which is likely chronic and secondary to the brain Mets. With her right upper extremity predominant movements during the seizure, noted by nursing staff, I suspect a left hemispheric origin to this seizure. Because of her brain Mets she is at high risk for further seizures. 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 The brain metastases as of January of 2019 for bilateral but mostly in the right cerebral hemisphere compared to the left. There have been no recent films so I do not know if there are more lesions or larger lesions with her without edema currently. Her prognosis is poor from this alone but when added to the other metastases and the hepatic failure and pancreatitis, her prognosis is very poor. Recommendations: 1. I think it is reasonable to initiate an anticonvulsant as this will keep her comfortable. Otherwise she has a great risk for continued seizures. I would select an anticonvulsant does not make her sleepy/irritable (therefore no levetiracetam) or potentially affect the liver (therefore no valproic acid). 2. Consider carbamazepine 200 milligrams twice daily and follow levels. An alternative would be oxcarbazepine 300 milligrams twice daily, titrating as needed. 3. An MRI of the brain with without contrast could be considered to evaluate current status of brain metastases, but I do not believe this would change the overall treatment plan or outcome of her care. 4. Similarly, an EEG will not add anything to her treatment plan or care as well, at this point. 5. She has no meningeal signs and LP is not indicated. 6. Otherwise, I have little else to offer for her from a neurologic standpoint at this time, however, please contact me if I can be of further assistance on this case. Overall, I spent a total of 65 minutes with this case including review of records, review of MRI films, direct evaluation the patient at bedside, discussion of the case with the patient and at bedside, clinical staff, and Dr. Elizabeth lindsay including differential diagnosis and treatment options. History of Present Illness Reason for Consultation: Patient is a 53-year-old, who I was asked to see the request Dr. Olivares, or neurologic consultation regarding new onset seizure with brain metastases Requesting Physician: Dr. Maru Olivares Attending Physician: Jenny Johnson MD History of Present Illness Patient, according to her was present, has not had any seizures prior to this morning can. Patient is a poor historian because of her confusion. In 2014, she was noted to metastatic colon cancer. Metastasized to the liver and lung. In September of 2018 patient started having confusional spells consisting several hours of not making sense with her thought processes and speech. She was not having seizure activity including stiffening or jerking of the limbs, or staring spells. Patient was not having headaches but her left side was weak and she was having blurry vision. In January of 2019 an MRI of the brain showed multiple metastases supratentorially right greater than left hemisphere. I reviewed this MRI. Patient has been followed closely by Dr. Olguin in Oncology and has been receiving chemotherapy including FOLFOX with bevacinumab. More recently she has had abdominal pain and was admitted to our institution on June 02 with sepsis and acute pancreatitis with altered mental status, chronic anemia, and UTI. She has been on Decadron 2 milligrams twice a day and has been receiving Piperacillin/tazobactam. Apparently there was a family conference last evening and a decision was made to take the patient home and keep her comfortable. verifies this with me this morning. Approximately 0600 this morning the nurse found the patient with her head turned to the right and with tonic clonic movements of the right upper extremity more than the left upper extremity. Left eye was deviated to the right in her right eye was midline. She was not responsive. Her heart rate was in the 140s and her O2 sat dropped into the 60s. This last about 2 minutes and then she was tired and confused thereafter. She had bit her tongue. She had a Wagner catheter in. I saw the patient starting at 0720 and she was awake but somewhat confused and sleepy. She denied headache or pain, vision problems, or any new weakness or numbness in the arms or legs. Allergies Allergy/AdvReac Type Severity Reaction Status Date / Time peanut Allergy Intermediate Rash Verified 03/25/19 05:42 around the mouth aloe Allergy Mild RASH Verified 03/25/19 05:42 No Known Drug Allergies Allergy . Verified 03/25/19 05:42 cat dander AdvReac Mild SNEEZING, Verified 03/25/19 05:42 WATERY EYES Home Medications Home Medications Medication Instructions Recorded Confirmed Type 1 tab PO DAILY 01/24/19 03/25/19 History ferrous sulfate 325 mg PO DAILY 01/24/19 03/25/19 History dexamethasone 2 mg tablet 2 mg PO DAILY tab 04/05/19 04/05/19 History empagliflozin 10 mg tablet 10 mg PO DAILY 04/05/19 04/05/19 History Patient History Medical History History of chemotherapy (Acute) 06/03/15 - 03/15/16 - Folfox/Avastin 03/25/16 - 07/03/17 - Irinotecan/Cetuximab 10/2017 - 12/2018 - Lonsurf Anemia Anxiety Cancer Metastatic Colon CA w/ mets to lung, liver and brain (brain mets recently dx during [place] ER visit 01/2019 for stroke like symptoms 2/2 UTI per pt report) - has since received radiation treatment and steroid taper for brain mets Depression NO MEDICATIONS History of recent steroid use steroid taper for brain mets Neutropenia RECENTLY LABS 01/13/19 Recent urinary tract infection RESOLVED Temporomandibular joint disorder "JUST GRIND TEETH" Surgical History History of bowel resection 2014 History of colonoscopy 2014 History of colostomy 05/11/15 History of mandibular surgery 1993 - PALATE EXPANSION AND "PULLED LOWER JAW FORWARD WITH PLATES AND SCREWS" History of removal of Port-a-Cath 2016 History of vascular access device 2015 A-port placement Family History Mother No problems noted. Father , Passed age 60 in MVA No problems noted. Uncle , Maternal - Passed in 60's of Lung CA No problems noted. Brother No problems noted. Sister No problems noted. Sister No problems noted. Sister No problems noted. Daughter No problems noted. Daughter No problems noted. Son No problems noted. Social History Preferred Language: [place] Communication Ability: Effective Visual Impairment: Limited Hearing Ability: Normal Beliefs That Will Affect Care: Worship Worship Beliefs: SCIENTOLOGY marital status: Current Living Situation: Spouse current occupational status: disabled current occupation: Worked for [employer] Other Information That Helps Us Care for You: No Feels Safe at Home: Yes Safety Concerns: Feels Safe At This Time Smoking Status: Former smoker Tobacco Type: cigarettes Second Hand Exposure: No Hx Alcohol Use: No Hx Substance Use: No caffeine: Yes (Iced tea daily ) during the past year weight has: remained stable Review of Systems Constitutional: + fatigue and + weakness; no fever and no body aches Eyes: no diplopia, no eye pain and no worsening vision Ear, Nose, Mouth, Throat: no ear pain, no tinnitus, no hearing loss and no dysphagia Respiratory: no cough and no dyspnea Cardiovascular: no chest pain, no dyspnea and no palpitations Gastrointestinal: + abdominal pain; no nausea and no vomiting Genitourinary: no dysuria, no urinary frequency and no urinary incontinence Musculoskeletal: no back pain, no neck pain, no radicular pain, no myalgia, no muscle weakness and no muscle atrophy Integumentary: no rash and no lesions Neurologic: + generalized weakness, + confusion and + memory loss; no gait abnormality, no falls, no localized weakness, no tingling, no numbness, no tremor(s), no abnormal movements, no dizziness, no headache(s), no abnormal speech and no behavioral changes Psychiatric: + difficulty concentrating; no depression, no abnormal sleep pattern, no anxiety, no confusion and no hallucinations Endocrine: + fatigue; no flushing Hematologic / Lymphatic: no easy bleeding and no easy bruising Allergy / Immunological: no urticaria Physical Exam Physical Exam: The patient is right-handed. The patient is awake but somewhat tired/confused. Speech is mildly dysarthria/soft but intelligible and no obvious aphasia is noted. Mood is reasonable and affect is flat. She is oriented to her name the month and the year but did not know her age, the date, the day, and the president. She could follow one-step commands a new left from right. She can do simple calculations. The discs are sharp with positive venous pulsations bilaterally. There are no exudates, hemorrhages, or blood vessel changes seen. Pupils are 4 mm bilaterally and reactive to light. Extraocular eye muscles are intact without nystagmus. Visual acuity and visual torres seem normal grossly to confrontation. There are no deficits to sensation in the face in all 3 distributions of the fifth cranial nerve bilaterally. Corneal reflexes are positive bilaterally. Facial strength and symmetry was normal bilaterally. Hearing seems intact grossly to voice and finger rub bilaterally. Palate moves well without asymmetry. There is normal sternocleidomastoid and trapezius (shoulder shrug) strength bilaterally. Tongue is midline with good strength bilaterally. Neck has a full range of motion without discomfort. There are no cervical bruits bilaterally. There are no cranial or ocular bruits. Heart is without murmur. There is a regular rhythm and rate. Cervical, thoracic, and lumbar spine are nontender to palpation. Gait is not tested and her stance is poor trying to sit up in bed. With outstretched arms there is no drift but the left is harder for her to do than the right because of some weakness at the shoulder. There are no resting, postural, or action tremors. There is no ataxia with finger to nose testing. Th ere is reasonable facility in the hands. No other abnormal involuntary movements are noted. Motor strength is 4/5 in the right upper extremity diffusely both proximally and distally. The left upper extremity is symmetrical distally but slightly weaker and 4-/5 proximally at the shoulder. Leg strength is 4/5 proximally distally on the right and 4-/5 proximally and distally in the left lower extremity. The limbs have mildly decreased tone without rigidity or spasticity. There is no atrophy noted in the muscles. Muscle bulk is normal, there is no tenderness to palpation, no myotonia to percussion, and no fasciculations seen. Sensory examination is intact to touch and pin throughout all 4 limbs diffusely. Vibratory and position sense testing is normal bilaterally as well. There is normal sensation to temperature. Reflexes are 1/4 in the biceps, triceps, brachioradialis, quadriceps, and Achilles tendons bilaterally. Toes are downgoing with plantar stimulation bilaterally. Peripheral pulses are present and of normal quality distally in all 4 limbs. There is no peripheral edema noted in the limbs. Results & Data Vital Signs (Past 12 Hours) Vital Signs Temp Pulse Pulse Pulse Pulse Resp BP 06/05/19 07:17 36.4 C L 107 H 18 117/82 06/05/19 04:00 95 H 14 06/05/19 00:00 92 H 06/04/19 23:00 36.5 C 91 H 20 135/80 06/04/19 21:00 36.7 C 94 H 24 126/78 Pulse Ox 06/05/19 07:17 98 06/05/19 04:00 100 06/05/19 00:00 06/04/19 23:00 96 06/04/19 21:00 99
[2019-06-05] MEDS: INSULIN ASPART 100 UNITS/ML 3 ML PEN SC SCH ×4 (08:32→21:14)
[2019-06-05] MEDS: FAMOTIDINE 20 MG in SYRINGE 3 ML IV SCH (08:51)
[2019-06-05 09:39] LABS: Hemoglobin 8.3 g/dL (12.0-16.0); Mean Corpuscular Hgb Conc 29.6 g/dL (32-36); Mean Corpuscular Volume 88.3 fL (80-100); Mean Platelet Volume 10.5 fL (7.4-10.4); Nucleated RBC # (auto) 0.22 K/uL (0-0); Nucleated RBC % (auto) 0.7 %; Platelet Count 106 K/uL (130-400); RDW Coefficient of Variation 21.4 % (11.5-14.5); RDW Standard Deviation 67.9 fL (36.4-46.3); Red Blood Count 3.17 M/uL (4.2-5.4); White Blood Count 31.53 K/uL (4.8-10.8)
[2019-06-05 09:40] LABS: ALC (manual) 1.64 K/uL (1.2-3.4); Anisocytosis Present; Hypochromasia Present; Lymphocytes # (manual) 1.64 K/uL (1.2-3.4); Lymphocytes % (manual) 5.2 %; Metamyelocytes # (manual) 0.28 K/uL (0-0); Metamyelocytes % (manual) 0.9 %; Monocytes # (manual) 0.54 K/uL (0.11-0.59); Monocytes % (manual) 1.7 %; Myelocytes # (manual) 2.71 K/uL (0-0); Myelocytes % (manual) 8.6 %; Neutrophils % (manual) 83.6 %
[2019-06-05] MEDS ORDERED: LORazepam 1 MG/2 ML VIAL IV PRN (09:45)
--- NOTE | 2019-06-05 10:08 | Nephrology Progress Note ---
Date of Service June 05, 2019 Assessment & Plan (1) ASHLEY (acute kidney injury): -- Abdominal CT at [facility] was negative for renal obstruction -- Patient is hypoalbuminemic and 3rd spacing volume into the abdomen and soft tissue of the legs -- Continue hydration w/ 0.9 NS at 100 cc/hr -- Continue albumin 25 g IV q 8 hrs -- Poor prognosis due to widely metastatic colon CA. -- I met w/ Mr. Almanzar this morning. He expressed concern that his 's condition is worsening. The family has chosen to transition to home hospice. He questioned whether this is the right decision. I agree with the family's decision and reassured him the comfort care would be in the best interest of his . -- No further Nephrology evaluation needed at this time. Will sign off. Please call if further assistance is needed (2) Anemia: -- Consider blood transfusion to maintain Hgb > 8.0 (3) Acute pancreatitis: -- Continue IV hydration / supportive care (4) Colon cancer metastasized to lung: -- Await Oncology input. Family is considering home hospice care Subjective Mrs. Almanzar was seen and examined in her hospital room this morning. She was oriented to self only. Her was at bedside and indicated that she suffered a seizure last night. Review of Systems Review of Systems: Unobtainable due to cognitive status Physical Exam Constitutional: + cachectic and + frail appearing Eyes: PERRL (+ scleral icterus) ENMT: Mouth: + dry oral mucous membranes Neck: trachea midline, no thyromegaly Respiratory: normal respiratory effort, lungs clear to auscultation no respiratory distress Cardiovascular: Rate/Rhythm: regular rate and regular rhythm Extremities: + edema (2+ pretibial pitting edema) Gastrointestinal (Abdomen): Inspection/Auscultation: + hypoactive bowel sounds Percussion/Palpation: + abdomen tender and abdomen soft Neurologic: awake and + confused Results & Data Vital Signs (Past 12 Hours) Vital Signs Temp Pulse Pulse Pulse Resp BP Pulse Ox 06/05/19 07:17 36.4 C L 107 H 18 117/82 98 06/05/19 07:15 103 H 06/05/19 04:00 95 H 14 100 06/05/19 00:00 92 H 06/04/19 23:00 36.5 C 91 H 20 135/80 96 Laboratory Results Laboratory Tests 06/04/19 06/05/19 05:34 05:27 WBC 28.90 H Hgb 7.6 L Hct 26.4 L Plt Count 119 L Sodium 138 Potassium 3.6 Chloride 105 Carbon Dioxide 19 L BUN 41 H Creatinine 2.84 H D Total Bilirubin 6.8 H AST 395 H ALT 69 Alkaline Phosphatase 1612 H Lipase 1009 H
[2019-06-05] MEDS: carBAMazepine 200 MG TABLET PO SCH ×2 (10:53→20:08)
--- NOTE | 2019-06-05 10:55 | Progress Note ---
DATE: 06/05/2019 MEDICAL ONCOLOGY PROGRESS NOTE DIAGNOSES: 1. Acute pancreatitis. 2. Hypoalbuminemia. 3. Biliary obstruction due to disease progression. 4. Mild coagulopathy. 5. Acute renal injury. 6. Severe anemia. SUBJECTIVE: Stephanie is a very pleasant but unfortunate 53-year-old patient of Dr. Olguin'anabell with diffusely metastatic colorectal cancer. She was seen at bedside this morning with her present. reports Stephanie suffered a seizure last night and was seen by neurology earlier this morning. She is clearly agitated and confused today. This is a distinct change from my examination yesterday. is now amenable to having Stephanie go home to hospice. Apparently, palliative care is on board and I believe the direction of care is leaning towards palliation at this point. Dr. Olguin was able to only briefly chat with the this morning; however, I trust he will return today to discuss end of life care with Stephanie's . OBJECTIVE: GENERAL: Awake, alert, confused 53-year-old female in no distress. VITAL SIGNS: Temperature 36.4, pulse 107, respiratory rate 18, blood pressure 117/82. SKIN: More jaundiced today. HEENT: Buccal mucosa is clear. HEART: Regular rate and rhythm. LUNGS: Clear to auscultation bilaterally. ABDOMEN: Mildly tender periumbilically. EXTREMITIES: 1+ peripheral edema. NEUROLOGICAL: Again, she is more confused and agitated today. Apparently, had a seizure last night, focally appears to be intact. LABORATORY DATA: PT 13.5 seconds, INR 1.3 which is an improvement. Sodium 138, potassium 3.6, chloride 105, carbon dioxide 19, BUN 41, creatinine 2.84, alkaline phosphatase 1612, albumin 2.3. Lipase remains elevated at 1009. IMPRESSION: 1. New-onset seizures. 2. Acute pancreatitis. 3. Hypoalbuminemia. 4. Biliary obstruction. 5. Severe anemia. 6. Mild coagulopathy. 7. Acute renal injury. 8. Metastatic colorectal cancer. PLAN: I had a chance to talk to Stephanie's of [facility]. He fully understands that her disease had progressed and organ systems are failing. Palliative care is on consultation and I believe Stephanie's is willing to take her home on hospice care. I agree with this approach as she has been heavily pretreated and unfortunately her disease has been resistant to all therapies thus far. I will alert Dr. Olguin of the patient's and 's desire to explore hospice care. At this juncture, I think her now should make medical decisions as Stephanie is very confused, noticed increased jaundice which would suggest her liver is reobstructing. Unfortunately, her prognosis is poor and quite frankly do not see her surviving more than a week or two moving forward. We will continue to follow while she is in house. I have nothing further to add. MTDD
--- NOTE | 2019-06-05 14:02 | Palliative Care Progress Note ---
Date of Service June 05, 2019 Assessment & Plan (1) Palliative care encounter: -Patient had new onset seizure early this morning. Neurology was consulted. patient was started on carbamazepine BID. -During my visit, patient alert and awake, but some confusion. Oriented to person and place, did think she was on a boat this morning per nursing staff and . -Patient's sister and , Eric, were at bedside today. -Ms. Almanzar is transitioning to home hospice care per her and her , Eric's, wishes. Case management is getting home hospice set up. -Eric had several questions about her care at home including what to do if a seizure occurs, pain medication, etc. I answered his questions and we discussed. -Continue Roxanol 5-10mg PO as needed for pain or SOB. Patient is hesitant to take pain meds, which we talked about. (2) New onset seizure: (3) Colon cancer: (4) Colon cancer metastasized to brain: Subjective Patient had new onset seizure over night. She is now on carbamazepine. Confused this morning. See A&P. Review of Systems Review of Systems: Denies SOB, CP, N/V. C/O weakness and abdominal pain with movement or palpation. Physical Exam Constitutional: + ill appearing ENMT: external ear and nose normal, oropharynx normal Neck: normal visual inspection Respiratory: normal respiratory effort, lungs clear to auscultation Cardiovascular: Rate/Rhythm: regular rate and regular rhythm Extremities: + edema (+1 pitting edema to BLE) Gastrointestinal (Abdomen): Inspection/Auscultation: normal bowel sounds Percussion/Palpation: + abdomen tender and + guarding; + abdomen not soft (firm) Skin: no rashes, warm and dry Neurologic: moves all extremities and awake Psychiatric: Orientation: alert, oriented to person and oriented to place; + not oriented to time Results & Data Vital Signs (Past 12 Hours) Vital Signs Temp Pulse Pulse Pulse Resp BP Pulse Ox 06/05/19 11:20 36.6 C 93 H 17 132/91 99 06/05/19 07:17 36.4 C L 107 H 18 117/82 98 06/05/19 07:15 103 H 06/05/19 04:00 95 H 14 100 PG Care Time/CCT Total # of Minutes Spent Total Time Spent with Patient: Total time spent is greater than 50% in coordination of care (as documented) at patient's floor/unit and/or counseling patient: Time Spent Midlevel [35] minutes with >50% of the time spent at bedside with [patient and family] discussing [condition and GOC].
--- NOTE | 2019-06-05 17:56 | Hospitalist Progress Note ---
Date of Service June 05, 2019 Assessment & Plan (1) Acute pancreatitis: Progressive pain for a week, secondary to mets to the liver WBC elevated secondary to stress response plus steroids plus some degree of a sending cholangitis LFTs remain in an obstructive pattern secondary to multiple liver mets, TBili remains elevated at 6 today but AST, ALT, Alk phos decreased from previous but still quite high lipase was 6000 [address] [facility] [address] showed evidence of pancreatitis, lipase has trended downward to 1000 Perhaps the CBD stent that was placed is helping somewhat Concerns for gall stone pancreatitis due to elevated LFT MRCP showed no CBD dilatation but possible obstruction of common hepatic duct Norberto GI eval appreciated--> ERCP on 06/03 showed biliary sludge but no obstruction. Had plastic CBD stent placed after sphincterotomy just in case was an obstruction GI thinks LFTs and lipase elevated due to grossly metastatic disease to the liver Not much else can be done for her at this point other than chemotherapy for her liver mets, however she is not in a condition to be able to withstand more chemotherapy -continue to advance diet as tolerated as per GI-will advance to regular with soft bite sized food and she can pick and choose what she would like to eat -We will discontinue IV fluids and IV albumin at this time -continue pain control with po Roxanol prn -follow LFTs in AM but transitioning to hospice care tomorrow -continue Zosyn to cover for possible cholangitis/cholecystitis-last dose could be tomorrow -continue Pepcid but change to p.o. twice daily (2) Elevated LFTs: Tbili is up to 6.3, ALK phos slightly down to 1612, ALT down to 69 and AST down to 395 certainly bone mets likely contributing to higher elevation in Alk phos in addition to liver mets CBD stent placed 06/03/19 If pursues comfort care, no need to remove stent. If improves/survives, would need stent removed in 3-6 months -as above -follow LFTs (3) ASHLEY (acute kidney injury): Unsure of baseline chief communications officer but continues to rise again today --> now up to 2.8 Could be hepatorenal syndrome and at this point would be type 2 Is non-oliguric Ur Na+ is 55 which argues against hepatorenal syndrome UA with some proteinuria -Received IV fluids and IV albumin but will now discontinue after 48 hours given transition to hospice care tomorrow -appreciate Nephrology consultation--> she would not be a dialysis candidate and family/pt aware-nephrology has now signed off -follow UOP -follow BMP in AM -avoid nephrotoxins, renally dose meds (4) Colon cancer metastasized to brain: was on Decadron po at home but had stopped as could not tolerate it Last dose of chemotherapy was end of April -Has been on IV Decadron here -With partial complex seizure that occurred on the morning of 06/05 likely related to brain mets -Imaging of the brain was not repeated today as she is transitioning to hospice care and seizures presumably from brain metastases -Starting carbamazepine as below -Oncology consult appreciated -Palliative care consult appreciated--> plan is for going home with Hospice although pt's does want to talk to Dr. Olguin about the plan prior to discharge (5) Anemia: Hgb dropped down to 7.0 and now up to 8.3 with 1 unit PRBCs transfused on 06/03. Fe studies show chronic disease pattern, B12 and folate normal With coagulopathy as well and some oozing during ERCP reported -no transfusion today No further transfusions will be given as is transitioning to hospice care (6) Colon cancer metastasized to bone: new finding for pain, it is in spine pain control with Roxanol prn -consider Palliative XRT but not likely needed (7) Colon cancer metastasized to lung: noted, is now on O2 -Continue O2 at home with hospice (8) DM type 2 (diabetes mellitus, type 2): Novolog SS provided, can continue for now but will not need this at home (9) Gallstones: seen on MRCP, non-obstructing on MRCP and ERCP Appreciate Surgery Consult-no surgical need here given comorbidities unless was emergent (10) Pain, abdominal: -secondary to metastatic colon CA with large mets in the liver -convert to po Roxanol for pain-this is effective Palliative Care consulted (11) Dysphagia: noted complaint of dysphagia worsening 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, abd pain, opioids -Speech eval for dietary recommendations appreciated and she is doing better now at least with liquids--> no further ENGRAVER AUTOMATIC recommendations (12) Hypoalbuminemia: severe, albumin only 1.3, secondary to liver dysfunction and metastatic CA Albumin now increased to 2.3 with IV albumin She is having some LE edema now which is mild -We will now discontinue IV albumin q8 after 48 hours (13) Coagulopathy: INR 1.5, secondary to liver dysfunction and not likely to improve unless chemotherapy is effective and shrinking liver mets INR stable today to 1.3 now s/p Vit K on 06/03 and received FFP -follow INR (14) Leukocytosis: secondary to infection/cholangitis vs steroid effect vs stress response WBC count was up to 39k after ERCP, now improving but remains elevated -follow CBC (15) UTI (urinary tract infection): possible UTI bacteria in UA, told by patient that often she only has bacteria and no WBC with UTI will be on Zosyn, follow up urine culture from [facility] (16) New onset seizure: Had a partial complex seizure on the right side on the morning of 06/05, likely secondary to brain metastases as above -Start carbamazepine 200 mg p.o. twice daily -Give Ativan as needed for seizures -Family educated on what to do if she has a seizure at home (17) DVT prophylaxis: Holding Lovenox and will not restart due to pursuing comfort care at this point SCDs Dispo-remain on PCU CM assistance with Hospice referral appreciated-plan for home tomorrow with hospice Subjective Patient had a seizure early this morning with the right side of her body that was witnessed by the nurse. It lasted 2 to 3 minutes as per reports. Patient has no recollection of this. I discussed the case with neurology and she was started on carbamazepine. After discussion with family, decided not to pursue head imaging as the seizure is likely from her brain metastases and there is nothing further to be done about that at this time. Patient denies abdominal pain, but sister at the bedside reports she had a lot of pain just with being turned on to her side today in the bed. Patient is looking forward to going home tomorrow with hospice. Telemetry with normal sinus rhythm with rates in the 90s to 100s Review of Systems Review of Systems: All systems reviewed & are unremarkable except as noted in HPI & below Physical Exam Constitutional: WD/WN, vitals as above + ill appearing and + thin; no acute distress Eyes: PERRL, conjunctivae normal, anicteric sclerae + scleral abnormality (icterus) Neck: trachea midline, no thyromegaly Respiratory: normal respiratory effort, lungs clear to auscultation Cardiovascular: Rate/Rhythm: regular rate and regular rhythm Heart Sounds: no murmur Extremities: + edema (1+ nonpitting edema of the legs bilat) Chest (Breasts): Chest: + vascular access device or port (left anterior chest wall) Gastrointestinal (Abdomen): Inspection/Auscultation: normal bowel sounds; + abdomen abnormal to inspection (ostomy bag LLQ with gas and small amount green stool) Percussion/Palpation: + abdomen tender (diffusely but moreso in RUQ), + hepatomegaly and + abdominal mass (multiple palpable masses right side abdomen); no hernia Musculoskeletal: Extremities: extremities normal to inspection; no cyanosis and no clubbing Skin: no rashes, warm and dry Neurologic: moves all extremities and awake; no focal motor deficits Psychiatric: Orientation: alert, oriented to person, oriented to time (only to the year and month) and cooperative; + not oriented to place Results & Data Vital Signs (Past 12 Hours) Vital Signs Temp Pulse Pulse Resp BP Pulse Ox 06/05/19 16:00 89 06/05/19 15:38 36.4 C L 92 H 16 98/58 L 99 06/05/19 11:20 36.6 C 93 H 17 132/91 99 06/05/19 07:17 36.4 C L 107 H 18 117/82 98 06/05/19 07:15 103 H Laboratory Results 06/05/19 06/05/19 06/05/19 Range/Units 16:21 11:19 07:22 WBC (4.8-10.8) K/uL RBC (4.2-5.4) M/uL Hgb (12.0-16.0) g/dL Hct (37-47) % MCV (80-100) fL MCH (25-34) pg MCHC (32-36) g/dL RDW Std Deviation (36.4-46.3) fL RDW Coeff of Sully (11.5-14.5) % Plt Count (130-400) K/uL MPV (7.4-10.4) fL Absolute Nucleated RBC (0-0) K/uL Nucleated RBC % (auto) % Neutrophils % (Manual) % Lymphocytes % (Manual) % Monocytes % (Manual) % Metamyelocytes % (Man) % Myelocytes % (Man) % Neutrophils # (Manual) (1.4-6.5) K/uL Total Absolute Neuts (1.4-6.5) K/uL Lymphocytes # (Manual) (1.2-3.4) K/uL Total Abs Lymphocytes (1.2-3.4) K/uL Monocytes # (Manual) (0.11-0.59) K/uL Metamyelocytes # (Man) (0-0) K/uL Myelocytes # (Manual) (0-0) K/uL Hypochromasia Anisocytosis PT (9.0-12.0) Seconds INR (0.9-1.1) Sodium (136-145) mmol/L Potassium (3.5-5.1) mmol/L Chloride (98-107) mmol/L Carbon Dioxide (21-32) mmol/L Anion Gap (3-11) BUN (7-18) mg/dl Creatinine (0.6-1.2) mg/dl Est Cr Clr Drug Dosing ml/min Est GFR ( Amer) Est GFR (Non-Af Amer) BUN/Creatinine Ratio (10-20) Glucose (70-99) mg/dl POC Glucose 141 H 99 96 (70-99) Calcium (8.5-10.1) mg/dl Total Bilirubin (0.2-1) mg/dl AST (15-37) U/L ALT (12-78) U/L Alkaline Phosphatase (45-117) U/L Total Protein (6.4-8.2) gm/dl Albumin (3.4-5.0) gm/dl Globulin (2.5-4.0) gm/dl Albumin/Globulin Ratio (0.9-2) Lipase (73-393) U/L 06/05/19 06/05/19 06/05/19 Range/Units 05:30 05:27 05:27 WBC 31.53 H* (4.8-10.8) K/uL RBC 3.17 L (4.2-5.4) M/uL Hgb 8.3 L (12.0-16.0) g/dL Hct 28.0 L (37-47) % MCV 88.3 (80-100) fL MCH 26.2 (25-34) pg MCHC 29.6 L (32-36) g/dL RDW Std Deviation 67.9 H (36.4-46.3) fL RDW Coeff of Sully 21.4 H (11.5-14.5) % Plt Count 106 L (130-400) K/uL MPV 10.5 H (7.4-10.4) fL Absolute Nucleated RBC 0.22 H (0-0) K/uL Nucleated RBC % (auto) 0.7 % Neutrophils % (Manual) 83.6 % Lymphocytes % (Manual) 5.2 % Monocytes % (Manual) 1.7 % Metamyelocytes % (Man) 0.9 % Myelocytes % (Man) 8.6 % Neutrophils # (Manual) 26.36 H (1.4-6.5) K/uL Total Absolute Neuts 26.36 H (1.4-6.5) K/uL Lymphocytes # (Manual) 1.64 (1.2-3.4) K/uL Total Abs Lymphocytes 1.64 (1.2-3.4) K/uL Monocytes # (Manual) 0.54 (0.11-0.59) K/uL Metamyelocytes # (Man) 0.28 H (0-0) K/uL Myelocytes # (Manual) 2.71 H (0-0) K/uL Hypochromasia Present Anisocytosis Present PT 13.5 H (9.0-12.0) Seconds INR 1.3 H (0.9-1.1) Sodium 138 (136-145) mmol/L Potassium 3.6 (3.5-5.1) mmol/L Chloride 105 (98-107) mmol/L Carbon Dioxide 19 L (21-32) mmol/L Anion Gap 13.0 H (3-11) BUN 41 H (7-18) mg/dl Creatinine 2.84 H D (0.6-1.2) mg/dl Est Cr Clr Drug Dosing 18.5 ml/min Est GFR ( Amer) 20.8 Est GFR (Non-Af Amer) 17.9 BUN/Creatinine Ratio 14.6 (10-20) Glucose 83 (70-99) mg/dl POC Glucose (70-99) Calcium 8.7 (8.5-10.1) mg/dl Total Bilirubin 6.8 H (0.2-1) mg/dl AST 395 H (15-37) U/L ALT 69 (12-78) U/L Alkaline Phosphatase 1612 H (45-117) U/L Total Protein 5.6 L (6.4-8.2) gm/dl Albumin 2.3 L (3.4-5.0) gm/dl Globulin 3.3 (2.5-4.0) gm/dl Albumin/Globulin Ratio 0.7 L (0.9-2) Lipase 1009 H (73-393) U/L 06/04/19 Range/Units 21:02 WBC (4.8-10.8) K/uL RBC (4.2-5.4) M/uL Hgb (12.0-16.0) g/dL Hct (37-47) % MCV (80-100) fL MCH (25-34) pg MCHC (32-36) g/dL RDW Std Deviation (36.4-46.3) fL RDW Coeff of Sully (11.5-14.5) % Plt Count (130-400) K/uL MPV (7.4-10.4) fL Absolute Nucleated RBC (0-0) K/uL Nucleated RBC % (auto) % Neutrophils % (Manual) % Lymphocytes % (Manual) % Monocytes % (Manual) % Metamyelocytes % (Man) % Myelocytes % (Man) % Neutrophils # (Manual) (1.4-6.5) K/uL Total Absolute Neuts (1.4-6.5) K/uL Lymphocytes # (Manual) (1.2-3.4) K/uL Total Abs Lymphocytes (1.2-3.4) K/uL Monocytes # (Manual) (0.11-0.59) K/uL Metamyelocytes # (Man) (0-0) K/uL Myelocytes # (Manual) (0-0) K/uL Hypochromasia Anisocytosis PT (9.0-12.0) Seconds INR (0.9-1.1) Sodium (136-145) mmol/L Potassium (3.5-5.1) mmol/L Chloride (98-107) mmol/L Carbon Dioxide (21-32) mmol/L Anion Gap (3-11) BUN (7-18) mg/dl Creatinine (0.6-1.2) mg/dl Est Cr Clr Drug Dosing ml/min Est GFR ( Amer) Est GFR (Non-Af Amer) BUN/Creatinine Ratio (10-20) Glucose (70-99) mg/dl POC Glucose 125 H (70-99) Calcium (8.5-10.1) mg/dl Total Bilirubin (0.2-1) mg/dl AST (15-37) U/L ALT (12-78) U/L Alkaline Phosphatase (45-117) U/L Total Protein (6.4-8.2) gm/dl Albumin (3.4-5.0) gm/dl Globulin (2.5-4.0) gm/dl Albumin/Globulin Ratio (0.9-2) Lipase (73-393) U/L PG Care Time/CCT Total # of Minutes Spent Total Time Spent with Patient: Total time spent is greater than 50% in coordination of care (as documented) at patient's floor/unit and/or counseling patient:
[2019-06-05] MEDS: FAMOTIDINE 20 MG TAB PO SCH (20:08)
[2019-06-05] MEDS: dexAMETHasone 1 MG TAB PO SCH (20:08)
[2019-06-06] MEDS: PIPERACILLIN/TAZOBACTAM 3.375 GM in DEXTROSE 5% 100 ML IV SCH (02:00)
[2019-06-06 06:29] LABS: Hematocrit (blood only) 29.9 % (37-47); INR 1.5 (0.9-1.1); Mean Corpuscular Hgb Conc 30.1 g/dL (32-36); Mean Corpuscular Volume 88.5 fL (80-100); Mean Platelet Volume 10.6 fL (7.4-10.4); Nucleated RBC # (auto) 0.12 K/uL (0-0); Nucleated RBC % (auto) 0.3 %; Platelet Count 101 K/uL (130-400); Prothrombin Time 14.6 Seconds (9.0-12.0); RDW Coefficient of Variation 21.5 % (11.5-14.5); RDW Standard Deviation 68.4 fL (36.4-46.3); Red Blood Count 3.38 M/uL (4.2-5.4); White Blood Count 38.99 K/uL (4.8-10.8)
[2019-06-06 06:53] LABS: Anisocytosis Present; Basophils # (auto) 0.14 K/uL (0-0.2); Basophils % (auto) 0.4 %; Hypochromasia Present; Immature Granulocytes # (auto) 3.07 K/uL (0.00-0.02); Immature Granulocytes % (auto) 7.9 %; Lymphocytes # (auto) 1.14 K/uL (1.2-3.4); Lymphocytes % (auto) 2.9 %; Monocytes # (auto) 1.41 K/uL (0.11-0.59); Monocytes % (auto) 3.6 %; Neutrophils # (auto) 33.23 K/uL (1.4-6.5); Neutrophils % (auto) 85.2 %; Polychromasia 1+; Toxic Vacuolation Occasional
[2019-06-06 07:03] LABS: Albumin Level 2.2 gm/dl (3.4-5.0); BUN Creatinine Ratio 15.3 (10-20); Calcium 9.1 mg/dl (8.5-10.1); Creatinine Clr Calc Pharmacy 16.9 ml/min; Est GFR (African American) 18.6; Potassium 3.9 mmol/L (3.5-5.1)
[2019-06-06 07:27] LABS: Albumin Globulin Ratio 0.6 (0.9-2); Bilirubin,Total 7.5 mg/dl (0.2-1); Globulin 3.6 gm/dl (2.5-4.0); Total Protein 5.8 gm/dl (6.4-8.2)
[2019-06-06] MEDS: INSULIN ASPART 100 UNITS/ML 3 ML PEN SC SCH (08:30)
[2019-06-06] MEDS: carBAMazepine 200 MG TABLET PO SCH (08:38)
[2019-06-06] MEDS: FAMOTIDINE 20 MG TAB PO SCH (08:39)
[2019-06-06] MEDS: dexAMETHasone 1 MG TAB PO SCH (08:39)
--- NOTE | 2019-06-06 09:56 | Progress Note ---
DATE: 06/06/2019 DIAGNOSES: 1. Acute pancreatitis. 2. Hypoalbuminemia. 3. Biliary obstruction due to disease progression. 4. Mild coagulopathy. 5. Acute renal injury. 6. Metastatic colorectal cancer. 7. Severe anemia. SUBJECTIVE: Stephanie was seen and examined at bedside again accompanied by her . Plans are underway to have her discharged to outpatient hospice. Had a tearful discussion with the patient's today. He is convening family members to meet up with Stephanie as she continues through the transition. Her pain seems to be well controlled. Mentally, she is a bit crisper today. I definitely agree with palliative approach considering her heavy pretreatment and resistant disease. Nursing reports no overnight difficulties. OBJECTIVE: GENERAL: A 53-year-old female, in no acute distress. VITAL SIGNS: Temperature 36.5, pulse 90, respiratory rate 18, blood pressure 140/89. SKIN: Without rash or lesion. HEENT: Buccal mucosa is clear. NECK: Supple. Trachea midline. HEART: Regular rate and rhythm. No clicks, rubs, murmurs or gallops. LUNGS: Clear to auscultation bilaterally. ABDOMEN: Soft, nontender, nondistended. EXTREMITIES: No clubbing, cyanosis or edema. NEUROLOGIC: Grossly intact. LABORATORY DATA: WBC count 39,000, hemoglobin 9.0, platelet count 101, absolute neutrophil count 33,000. PT 14.6, INR 1.5, Sodium 135, potassium 3.9, chloride 104, carbon dioxide 17, BUN 48, creatinine 3.12, AST 267, alkaline phosphatase 1564, albumin 2.2, lipase 665. IMPRESSION: 1. Acute pancreatitis. 2. New-onset seizure disorder. 3. Hypoalbuminemia. 4. Biliary obstruction. 5. Severe anemia. 6. Mild coagulopathy. 7. Metastatic colorectal cancer. 8. Acute renal injury. PLAN: Based on my conversation with Stephanie's , everybody seems to be on board with discharging Ms. Almanzar home to outpatient hospice care. She is in the midst of multiorgan failure which is commonly seen in endstage cancer patients. Her pain seems to be well controlled. The patient herself is anxious to return home to awaiting family members who are convening from all over the country to visit with her. I will officially sign off at this point. Dr. Olguin has been informed of the patient's decision to enter hospice care. Thank you for allowing me to participate in the care of this very pleasant lady.
[2019-06-06] MEDS ORDERED: HYDROmorphone INJ 0.5 MG/0.5 ML SYR IV PRN (10:13)
--- NOTE | 2019-06-06 10:45 | Discharge Summary ---
Date of Service June 06, 2019 Admission HPI Per Admitting Provider 53 yo female with history of diffusely metastatic colon cancer. Discovered in 2014 with weight loss, weakness and heme positive stools. Found to have nearly obstructing mass in sigmoid. Had a subtotal colectomy and end colostomy. Has been through several rounds of chemotherapy, initially showed good response but then mets to lungs, liver, CATASTROPHE [employer] SU[employer]OR and now bone. Most recently started on 5FU regimen, last treatment was 3 weeks ago and planned for another treatment in two days. Follows with Dr. Olguin. She had been tolerating chemo rather well despite her poor prognosis and her performance status had remained a 1, living independently and taking care of herself. She presents today from [facility] with acute pancreatitis. She says that she has had abdominal pain for over a week, getting progressively worse. She has no appetite and has been experiencing nausea but no vomiting. Her ostomy has had decreased output but her intake has been very poor. Yesterday she had a Boost for breakfast, nothing else all day. No fever or chills. The abdominal pain radiates to her back. Never had pain like this before, reports that she never had pain with her liver mets. At formerly [facility] she had a significant leukocytosis of 22k, lipase elevated at 6000. Bilirubine was 4 and alk phos was in the 2000's. AST was elevated as well. CT of the abdomen/pelvis showed acute pancreatitis. It also showed the pulmonary and liver mets. Some thickening of her colon wall seen suggesting local spread of disease. Of note, there was some blastic lesions in spine suggestive of spine mets which is a new finding. She was started on IV fluids, made NPO, given Demerol for pain and transferred to [facility]. Principal Diagnosis Metastatic colon cancer with mets to the liver Discharge Exam Constitutional WD/WN, vitals as above + ill appearing and + thin; no acute distress Eyes PERRL, conjunctivae normal, anicteric sclerae + scleral abnormality (icterus) ENMT external ear and nose normal, oropharynx normal Neck trachea midline, no thyromegaly Respiratory normal respiratory effort, lungs clear to auscultation Cardiovascular RRR, no murmur, no edema Rate/Rhythm: regular rate and regular rhythm Heart Sounds: no murmur Extremities: + edema (1+ nonpitting edema of the legs bilat) Chest (Breasts) Chest: + vascular access device or port (left anterior chest wall) Gastrointestinal (Abdomen) normal bowel sounds, soft, nontender, no hepatosplenomegaly Inspection/Auscultation: normal bowel sounds; + abdomen abnormal to inspection (ostomy bag LLQ with gas and small amount green stool) Percussion/Palpation: + abdomen tender (diffusely but moreso in RUQ), + hepatomegaly and + abdominal mass (multiple palpable masses right side abdomen); no hernia Musculoskeletal Extremities: extremities normal to inspection; no cyanosis and no clubbing Skin no rashes, warm and dry Neurologic moves all extremities and awake; no focal motor deficits Psychiatric Orientation: alert, oriented to person, oriented to time (only to the year and month) and cooperative; + not oriented to place Discharge Data Allergies Allergy/AdvReac Type Severity Reaction Status Date / Time aloe Allergy Mild RASH Verified 03/25/19 05:42 No Known Drug Allergies Allergy . Verified 03/25/19 05:42 cat dander AdvReac Mild SNEEZING, Verified 03/25/19 05:42 WATERY EYES Consultations 06/02/19 10:08 Consult Case Management - Discharge Planning Routine 06/02/19 13:41 Consult Gastroenterology Routine 06/02/19 13:50 Consult Oncology Routine 06/02/19 21:14 Consult General Surgery Routine 06/03/19 11:37 Consult Palliative Care Routine 06/04/19 08:19 Consult Nephrology Routine 06/04/19 22:34 Consult Case Management - Discharge Planning Routine 06/05/19 06:34 Consult Neurology Routine Procedures Performed Operation Date: 06/03/19 13:55 Actual Procedures p Endoscopic Retrograde Cholangiopancreatogram, sphincterotomy and biliary stent placement - Laura Espinoza MD Ordered Studies 06/02/19 14:55 MR MRCP Stat 06/03/19 09:48 FL ERCP biliary ductal Routine Hospital Course (1) Acute pancreatitis: Progressive pain for a week, secondary to mets to the liver WBC elevated secondary to stress response plus steroids plus some degree of a sending cholangitis LFTs remain in an obstructive pattern secondary to multiple liver mets, TBili remains elevated at 7 today but AST, ALT, Alk phos decreased from previous but still quite high lipase was 6[address] [facility] [address] CT showed evidence of pancreatitis, lipase has trended downward to 600 Perhaps the CBD stent that was placed is helping somewhat but minimally Concerns for gall stone pancreatitis due to elevated LFT MRCP showed no CBD dilatation but possible obstruction of common hepatic duct [facility]er GI eval appreciated--> ERCP on 06/03 showed biliary sludge but no obstruction. Had plastic CBD stent placed after sphincterotomy just in case was an obstruction GI thinks LFTs and lipase elevated due to grossly metastatic disease to the liver Not much else can be done for her at this point other than chemotherapy for her liver mets, however she is not in a condition to be able to withstand more chemotherapy - advanced diet as tolerated as per GI-will advance to regular with soft bite sized food and she can pick and choose what she would like to eat -received IV fluids and IV albumin at this time -continue pain control with po Roxanol prn -transitioning to hospice care at home. no mor elabs needed -received Zosyn to cover for possible cholangitis/cholecystitis-completed 1 week -continue Pepcid but change to p.o. twice daily (2) Elevated LFTs: Tbili is up to 7 ALK phos slightly down to 1500, ALT down to 61 and AST down to 267 certainly bone mets likely contributing to higher elevation in Alk phos in addition to liver mets CBD stent placed 06/03/19 If pursues comfort care, no need to remove stent. If improves/survives, would need stent removed in 3-6 months (3) ASHLEY (acute kidney injury): Unsure of baseline gluer but continues to rise again today --> now up to 3.12 Could be hepatorenal syndrome and at this point would be type 2 Is non-oliguric Ur Na+ is 55 which argues against hepatorenal syndrome UA with some proteinuria -Received IV fluids and IV albumin but will now discontinue given transition to hospice care tomorrow -appreciate Nephrology consultation--> she would not be a dialysis candidate and family/pt aware-nephrology has now signed off (4) Colon cancer metastasized to brain: was on Decadron po at home but had stopped as could not tolerate it Last dose of chemotherapy was end of April -Has been on IV Decadron here -With partial complex seizure that occurred on the morning of 06/05 likely related to brain mets -Imaging of the brain was not repeated after seizure as she is transitioning to hospice care and seizures presumably from brain metastases -Started carbamazepine as below -continue decadron po daily -Oncology consult appreciated -Palliative care consult appreciated--> plan is for going home with Hospice (5) Anemia: Hgb dropped down to 7.0 and now up to 8.3 with 1 unit PRBCs transfused on 06/03. Fe studies show chronic disease pattern, B12 and folate normal With coagulopathy as well and some oozing during ERCP reported -no transfusion today No further transfusions will be given as is transitioning to hospice care (6) Colon cancer metastasized to bone: new finding for pain, it is in spine pain control with Roxanol prn -consider Palliative XRT but not likely needed (7) Colon cancer metastasized to lung: noted, is now on O2 -Continue O2 at home with hospice (8) DM type 2 (diabetes mellitus, type 2): Novolog SS provided, can continue for now but will not need this at home (9) Gallstones: seen on MRCP, non-obstructing on MRCP and ERCP Appreciate Surgery Consult-no surgical need here given comorbidities unless was emergent (10) Pain, abdominal: -secondary to metastatic colon CA with large mets in the liver -convert to po Roxanol for pain-this is effective Palliative Care consulted (11) Dysphagia: noted complaint of dysphagia worsening could be due to CATASTROPHE [employer] mets, abd pain, opioids -Speech eval for dietary recommendations appreciated and she is doing better now at least with liquids--> no further [employer] recommendations (12) Hypoalbuminemia: severe, albumin only 1.3, secondary to liver dysfunction and metastatic CA Albumin now increased to 2.3 with IV albumin She is having some LE edema now which is mild -We will now discontinue IV albumin (13) Coagulopathy: INR 1.5, secondary to liver dysfunction and not likely to improve unless chemotherapy is effective and shrinking liver mets INR stable today to 1.3 now s/p Vit K on 06/03 and received FFP (14) Leukocytosis: secondary to infection/cholangitis vs steroid effect vs stress response WBC count was up to 39k after ERCP, now improving but remains elevated (15) UTI (urinary tract infection): possible UTI bacteria in UA, told by patient that often she only has bacteria and no WBC with UTI Received Zosyn (16) New onset seizure: Had a partial complex seizure on the right side on the morning of 06/05, likely secondary to brain metastases as above -Started carbamazepine 200 mg p.o. twice daily -Family educated on what to do if she has a seizure at home (17) DVT prophylaxis: SCDs Dispo-home with hospice today Total Time Total Time Spent Total Time Spent (In Minutes): >30 min Total Time Includes: Examination of the Patient, Discharge Planning and Medication Reconciliation Discharge Plan Discharge Items Patient Disposition: Hospice - Home Reason For Visit: COLON CA,ACUTE PANCREATITIS Discharge Diagnosis: Metastatic colon cancer Condition: Fair Discharge Goals: Decrease discomfort, Diagnostic testing, Learn about illness and Therapeutic intervention Activity: As commented below Lifting: None Bathing: No limitations Exercise/Sports: Rest today and As tolerated Non-emergency contact: Primary Care Provider Call non-emergency contact if: you have any medication questions, your symptoms worsen, your pain is not controlled, your pain is worsening, your pain is unusual for you and your pain is concerning for you Follow-up/Referrals: Thanh Charles [Primary Care Provider] - Diet: Regular Diet Comment: as tolerated Addtl Provider Instructions: You were admitted with abdominal pain from pancreatitis and metastatic tumors from your colon to your liver. You had a stent placed in your common bile duct to help relieve any obstruction, but unfortunately your colon cancer is spread throughout your liver which is causing blockages of your bile tract and jaundice. This is not improving despite having a stent placed. You also had seizures which are likely related to your tumors in the brain. You were started on medication to keep you from having seizures-this is called carbamazepine. You can also take the dexamethasone if tolerated to reduce swelling in the brain. You can take the liquid morphine as needed for pain and the lorazepam as needed for anxiety. Home hospice has been arranged for you. Please call your Hospice agency with any concerns or questions you have about your care after you leave the hospital. Your Wagner catheter will remain in place in the bladder. We will be thinking of you and your family as you go through this difficult time. Prescriptions: New morphine concentrate 100 mg/5 mL (20 mg/mL) Solution 5 - 10 mg PO Q2H PRN (Reason: pain) Qty: 30 RF: 0 carbamazepine 200 mg Tablet 200 mg PO BID Qty: 60 RF: 0 famotidine 20 mg Tablet 20 mg PO BID Qty: 60 RF: 0 lorazepam 0.5 mg tablet 0.5 mg PO Q8H PRN (Reason: anxiety or agitation) Qty: 20 RF: 0 Continued dexamethasone 2 mg tablet 2 mg PO DAILY RF: 0 Discontinued Jardiance 10 mg tablet 10 mg PO DAILY RF: 0 ferrous sulfate 325 mg (65 mg iron) Tablet 325 mg PO DAILY RF: 0 28-800 mg-mcg Tablet 1 tab PO DAILY RF: 0 Stand-Alone Forms: [facility] Discharge Orders: Discharge Order (Routine); Ordered 06/06/19 Ordered By: Jenny Johnson Admission Data Admit Date/Time: 06/02/19 09:55 Attending Provider: Jenny Johnson Admit Provider: Brigido Perdomo Primary Care Provider: Thanh Charles Other Providers: Savita Perdomo ; Lori Rice ; Aisha Torres ; Jann Salcido ; Alley Andino ; Darleen Welch ; Rosalba Costa ; Gino Lynn ; Paul Gray ; Martha Schneider ; Viviana Mittal ; Janeth Hernandez ; Hanna Guerrier ; Laura Espinoza ; Jay Olguin ; Abdifatah Orr ; Halle Ram ; Samson Paez ; George Granado III Service: Telemetry Other Interventions: Discharge Summary Assessment (RN) Last Done: 06/06/19 10:34 Pending Studies at Discharge: No DC Date/Time DO NOT enter until pt leaves facility: 06/06/19 12:02
--- NOTE | 2019-06-06 12:15 | Palliative Care Progress Note ---
Date of Service June 06, 2019 Assessment & Plan (1) Palliative care encounter: -Plan is for patient to return home with hospice care today. -, Eric, at bedside and had some more questions regarding patient's care. We discussed and his questions were answered. -Eric will have help from patient's sister and children at home. I instructed him that patient should not be left along, as he asked. She will need someone with her 12/06. I discussed how to use Roxanol as well. -Equipment was delivered last night. Case management will set up transport. -Please contact me with any further palliative care needs. (2) New onset seizure: (3) Colon cancer: (4) Colon cancer metastasized to brain: Subjective Patient is more confused today per the patient's who is at bedside. Plan is for patient to be discharged home with hospice today. Review of Systems Review of Systems: Denies SOB, CP, N/V. C/O weakness and abdominal pain with movement or palpation. Physical Exam Constitutional: + ill appearing ENMT: external ear and nose normal, oropharynx normal Neck: normal visual inspection Respiratory: normal respiratory effort, lungs clear to auscultation Cardiovascular: Rate/Rhythm: regular rate and regular rhythm Extremities: + edema (+1 pitting edema to BLE) Gastrointestinal (Abdomen): Inspection/Auscultation: normal bowel sounds Percussion/Palpation: + abdomen tender and + guarding; + abdomen not soft (firm) Skin: no rashes, warm and dry Neurologic: moves all extremities and awake Psychiatric: Orientation: alert, oriented to person and oriented to place; + not oriented to time Results & Data Vital Signs (Past 12 Hours) Vital Signs Temp Pulse Pulse Pulse Pulse Pulse Resp 06/06/19 10:34 36.5 C 88 94 H 90 123 H 18 06/06/19 07:30 80 06/06/19 07:28 36.5 C 90 18 06/06/19 04:40 36.4 C L 06/06/19 04:28 88 15 06/06/19 00:36 36.4 C L 89 15 BP BP Pulse Ox 06/06/19 10:34 140/89 124/83 98 06/06/19 07:30 06/06/19 07:28 140/89 98 06/06/19 04:40 06/06/19 04:28 141/88 H 97 06/06/19 00:36 129/85 99 PG Care Time/CCT Total # of Minutes Spent Total Time Spent with Patient: Total time spent is greater than 50% in coordination of care (as documented) at patient's floor/unit and/or counseling p atient: Time Spent Midlevel [35] minutes with >50% of the time spent at bedside with [patient and family] discussing [condition and GOC].
--- NOTE | 2019-06-07 22:21 | Anesthesiology Progress Note ---
Date of Service June 07, 2019 Anesthesia Post Procedure Pain Intensity Bilateral Generalized: Pain Intensity: 6 Left Abdomen: Pain Intensity: 6 Transfer of Care Handoff Completed per policy Notes Mental Status: alert / awake / arousable Patient Amnestic to Procedure: Yes Nausea / Vomiting: adequately controlled Pain: adequately controlled Airway Patency, RR, SpO2: stable & adequate BP & HR: stable & adequate Hydration State: stable & adequate Anesthetic Complications: no major complications apparent Notes: I evaluated the patient at the time of PACU discharge
== END 2019-06-06 12:02 | disposition hospice, home (50) | DRG 438 ==
LOC: 4E 09:55 → SUATTDRO 09:55 → 2E 19:17